=== PATIENT | male | born 1950 | race Caucasian/White ===

== ENCOUNTER 2019-09-14 21:09 | Inpatient (IN) | payer OTHER ==
[~2019-09-14] VITALS: Ht 175.3 cm; Wt 114.6 kg
[2019-09-14 21:45] LABS: BASO # 0.1 x10^3/uL (0.0-0.2); BASO % 1 % (0-3); EOS % 0 % (0-3); HEMATOCRIT 37.4 % (39.0-53.0); HEMOGLOBIN 13.3 g/dL (13.0-17.5); LYMPH % 9 % (24-48); MEAN CORPUSCULAR HEMOGLOBIN 30 pg (25-35); MEAN CORPUSCULAR HGB CONC 35 g/dL (31-37); MEAN CORPUSCULAR VOLUME 84 fL (79-100); MONO # 1.3 x10^3/uL (0.0-1.1); MONO % 12 % (0-9); NEUT # 8.5 x10^3/uL (1.8-7.7); NEUT % 78 % (31-73); PLATELET COUNT 245 x10^3/uL (140-400); RED BLOOD COUNT 4.46 x10^6/uL (4.30-5.70); RED CELL DISTRIBUTION WIDTH 13.2 % (11.5-14.5); WHITE BLOOD COUNT 10.9 x10^3/uL (4.0-11.0)
[2019-09-14 21:50] LABS: CALCIUM 7.9 mg/dL (8.5-10.1); CREATININE 0.9 mg/dL (0.7-1.3); GFR 83.9; POTASSIUM 3.9 mmol/L (3.5-5.1)
[2019-09-14 21:56] LABS: ALBUMIN 2.6 g/dL (3.4-5.0); ALBUMIN/GLOBULIN RATIO 0.6 (1.0-1.7); TOTAL BILIRUBIN 0.6 mg/dL (0.2-1.0); TOTAL PROTEIN 7.3 g/dL (6.4-8.2)
[2019-09-14 22:00] LABS: BILIRUBIN,URINE NEGATIVE (NEG); CLARITY,URINE CLEAR; NITRITE,URINE NEGATIVE (NEG); PROTEIN,URINE 100 mg/dL (NEG-TRACE)
[2019-09-14 22:06] LABS: COLOR,URINE DK YELLOW
[2019-09-14 22:09] LABS: BACTERIA,URINE 0 /HPF (0-FEW); HYALINE CASTS, URINE OCCASIONAL /HPF; RBC,URINE OCC /HPF (0-2); SQUAMOUS EPITHELIAL CELL,UR FEW /LPF; WBC,URINE 0 /HPF (0-4)
--- NOTE | 2019-09-14 22:29 | RAD ---
Exam: Chest one view INDICATION: Dyspnea TECHNIQUE: Frontal view of the chest Comparisons: None FINDINGS: The cardiomediastinal silhouette and pulmonary vessels are within normal limits. There is patchy bilateral airspace disease greater in the left lung. There is a trace amount of pneumomediastinum. No pleural effusion. IMPRESSION: Patchy bilateral airspace disease favored to be infectious in etiology. Trace pneumomediastinum. Electronically signed by: Vera Cade MD (09/14/2019 10:26 PM) [id number]
[2019-09-14 22:31] LABS: INFLUENZA A PATIENT NEGATIVE (NEGATIVE); INFLUENZA B PATIENT NEGATIVE (NEGATIVE)
--- NOTE | 2019-09-15 00:12 | PHYS DOC ---
Past Medical History Past Medical History: Hypertension Additional Past Surgical Histo: RIGHT WRIST SX Smoking Status: Former Smoker Alcohol Use: None General Adult EDM: Chief Complaint: COUGH HPI: HPI: Patient is a 69 year old male who presents with complaint of cough and shortness of breath for the last 2 days. Patient indicates the cough is been productive of mostly clear to white sputum. He states that shortness of breath is worsened with exertion. Patient is not aware of any fever. He denies any vomiting or diarrhea. [] Review of Systems: Review of Systems: Constitutional: Denies fever or chills. [] Respiratory: Complains of cough and shortness of breath. [] Cardiovascular: Denies chest pain or edema. [] Integument: Denies rash. [] Neurologic: Denies headache, focal weakness or sensory changes. [] A full 10 point review of systems has been reviewed and is otherwise negative. Heart Score: Risk Factors: Risk Factors: DM, Current or recent (<one month) smoker, HTN, HLP, family history of CAD, obesity. Risk Scores: Score 0 - 3: 2.5% MACE over next 6 weeks - Discharge Home Score 4 - 6: 20.3% MACE over next 6 weeks - Admit for Clinical Observation Score 7 - 10: 72.7% MACE over next 6 weeks - Early Invasive Strategies Physical Exam: PE: Constitutional: Well developed, well nourished, no acute distress, non-toxic appearance. [] HENT: Normocephalic, atraumatic, bilateral external ears normal, oropharynx moist, no oral exudates, nose normal. [] Eyes: PERRLA, EOMI, conjunctiva normal, no discharge. [] Neck: Normal range of motion, no tenderness, supple, no stridor. [] Cardiovascular: Mildly tachycardic rate with regular rhythm [] Lungs & Thorax: Fine rhonchi are noted bilaterally to auscultation [] Abdomen: Bowel sounds normal, soft, no tenderness. [] Skin: Warm, dry, no erythema, no rash. [] Extremities: No tenderness, no cyanosis, no clubbing, ROM intact. [] Neurologic: Alert and oriented X 3, no focal deficits noted. [] Current Patient Data: Labs: Laboratory Tests Test 09/14/19 21:31 09/14/19 21:48 6/14/20 21:58 White Blood Count 10.9 x10^3/uL (4.0-11.0) Red Blood Count 4.46 x10^6/uL (4.30-5.70) Hemoglobin 13.3 g/dL (13.0-17.5) Hematocrit 37.4 % (39.0-53.0) L Mean Corpuscular Volume 84 fL (79-100) Mean Corpuscular Hemoglobin 30 pg (25-35) Mean Corpuscular Hemoglobin Concent 35 g/dL (31-37) Red Cell Distribution Width 13.2 % (11.5-14.5) Platelet Count 245 x10^3/uL (140-400) Neutrophils (%) (Auto) 78 % (31-73) H Lymphocytes (%) (Auto) 9 % (24-48) L Monocytes (%) (Auto) 12 % (0-9) H Eosinophils (%) (Auto) 0 % (0-3) Basophils (%) (Auto) 1 % (0-3) Neutrophils # (Auto) 8.5 x10^3/uL (1.8-7.7) H Lymphocytes # (Auto) 1.0 x10^3/uL (1.0-4.8) Monocytes # (Auto) 1.3 x10^3/uL (0.0-1.1) H Eosinophils # (Auto) 0.0 x10^3/uL (0.0-0.7) Basophils # (Auto) 0.1 x10^3/uL (0.0-0.2) Sodium Level 123 mmol/L (136-145) L Potassium Level 3.9 mmol/L (3.5-5.1) Chloride Level 90 mmol/L (98-107) L Carbon Dioxide Level 31 mmol/L (21-32) Anion Gap 2 (6-14) L Blood Urea Nitrogen 14 mg/dL (8-26) Creatinine 0.9 mg/dL (0.7-1.3) Estimated GFR (Cockcroft-Gault) 83.9 BUN/Creatinine Ratio 16 (6-20) Glucose Level 125 mg/dL (70-99) H Lactic Acid Level 1.1 mmol/L (0.4-2.0) Calcium Level 7.9 mg/dL (8.5-10.1) L Total Bilirubin 0.6 mg/dL (0.2-1.0) Aspartate Amino Transferase (AST) 67 U/L (15-37) H Alanine Aminotransferase (ALT) 83 U/L (16-63) H Alkaline Phosphatase 88 U/L (46-116) Troponin I Quantitative < 0.017 ng/mL (0.000-0.055) YS-Cdh-R-Type Natriuretic Peptide 1090 pg/mL (0-124) H Total Protein 7.3 g/dL (6.4-8.2) Albumin 2.6 g/dL (3.4-5.0) L Albumin/Globulin Ratio 0.6 (1.0-1.7) L Urine Collection Type Unknown Urine Color Dk yellow Urine Clarity Clear Urine pH 6.0 (<5.0-8.0) Urine Specific Gilbert 1.020 (1.000-1.030) Urine Protein 100 mg/dL (NEG-TRACE) Urine Glucose (UA) Negative mg/dL (NEG) Urine Ketones (Stick) Trace mg/dL (NEG) Urine Blood Trace (NEG) Urine Nitrite Negative (NEG) Urine Bilirubin Negative (NEG) Urine Urobilinogen Dipstick 4.0 mg/dL (0.2 mg/dL) Urine Leukocyte Esterase Negative (NEG) Urine RBC Occ /HPF (0-2) Urine WBC 0 /HPF (0-4) Urine Squamous Epithelial Cells Few /LPF Urine Bacteria 0 /HPF (0-FEW) Urine Hyaline Casts Occasional /HPF Urine Mucus Marked /LPF Influenza Type A Antigen Negative (NEGATIVE) Influenza Type B Antigen Negative (NEGATIVE) Laboratory Tests 09/14/19 21:31 Laboratory Tests 09/14/19 21:31 Vital Signs: Vital Signs Date Time Temp Pulse Resp B/P (MAP) Pulse Ox O2 Delivery O2 Flow Rate FiO2 09/14/19 21:19 98.0 101 30 145/75 (98) 94 Nasal Cannula 2.0 98.0 EKG: EKG: [] Radiology/Procedures: Radiology/Procedures: [] Impression: PROCEDURE: PORTABLE CHEST 1V Exam: Chest one view INDICATION: Dyspnea TECHNIQUE: Frontal view of the chest Comparisons: None FINDINGS: The cardiomediastinal silhouette and pulmonary vessels are within normal limits. There is patchy bilateral airspace disease greater in the left lung. There is a trace amount of pneumomediastinum. No pleural effusion. IMPRESSION: Patchy bilateral airspace disease favored to be infectious in etiology. Trace pneumomediastinum. Electronically signed by: Vera Cade MD (09/14/2019 10:26 PM) [id number] PROCEDURE: CT ANGIOGRAPHY CHEST EXAM: CT ANGIOGRAPHY OF THE CHEST WITH AND WITHOUT CONTRAST. HISTORY: Dyspnea, pneumomediastinum, infiltrates. TECHNIQUE: Computed tomographic angiography of the chest was performed before and after the intravenous administration of iodinated contrast. 3-D maximum intensity projections were also performed. One or more of the following individualized dose reduction techniques were utilized for this examination: 1. Automated exposure control. 2. Adjustment of the mA and/or kV according to patient size. 3. Use of iterative reconstruction technique. COMPARISON: None. FINDINGS: Images of the upper abdomen reveal a small hiatal hernia. Bone windows reveal no suspicious lesions. No pulmonary emboli are identified. There is no aortic dissection or aneurysm. There are peripheral groundglass opacities on the left greater than right. There is no clear septal line thickening. The There is mild diffuse bronchial wall thickening. Scattered prominent mediastinal and hilar lymph nodes are likely reactive in this setting. One left hilar node on image 76 measures 2.0 x 1.5 cm. There is a trace left pleural effusion. There is no pericardial effusion. The heart is not enlarged. IMPRESSION: 1. No pulmonary embolism. 2. Peripheral bilateral groundglass infiltrates are nonspecific. Considerations include atypical pneumonia in the acute setting. If more chronic, cryptogenic organizing pneumonia, chronic eosinophilic pneumonia, or alveolar sarcoidosis. Prominent mediastinal lymph nodes are likely reactive in this setting. 3. Small hiatal hernia. Electronically signed by: Franklyn Mar MD (09/15/2019 1:40 AM) [facility] DICTATED and SIGNED BY: SHARRI MAR MD DATE: 09/15/19 0140 Course & Med Decision Making: Course & Med Decision Making Pertinent Labs and Imaging studies reviewed. (See chart for details) [] Ibrahima Disclaimer: Ibrahima Disclaimer: This electronic medical record was generated, in whole or in part, using a voice recognition dictation system. Departure Departure Impression: Primary Impression: Pneumonia Qualified Codes: J18.9 - Pneumonia, unspecified organism Additional Impressions: Hypoxemia Person under investigation for COVID-19 Disposition: ADMITTED INPATIENT Admitting Physician: HIMS Condition: IMPROVED Referrals: NO PCP (PCP) Justicifation of Admission Dx: Justifications for Admission: Justification of Admission Dx: Comment: (Pneumonia; suspected COVID) MAURICIO VELAZQUEZ Jr. DO Sep 15, 2019 00:12
[2019-09-15] MEDS ORDERED: CONTRAST GIVEN. MC PRN (00:30)
[2019-09-15] MEDS ORDERED: IOHEXOL 350 MG/ML 100 ML VIAL. IV ONE (00:30)
--- NOTE | 2019-09-15 01:42 | RAD ---
EXAM: CT ANGIOGRAPHY OF THE CHEST WITH AND WITHOUT CONTRAST. HISTORY: Dyspnea, pneumomediastinum, infiltrates. TECHNIQUE: Computed tomographic angiography of the chest was performed before and after the intravenous administration of iodinated contrast. 3-D maximum intensity projections were also performed. One or more of the following individualized dose reduction techniques were utilized for this examination: 1. Automated exposure control. 2. Adjustment of the mA and/or kV according to patient size. 3. Use of iterative reconstruction technique. COMPARISON: None. FINDINGS: Images of the upper abdomen reveal a small hiatal hernia. Bone windows reveal no suspicious lesions. No pulmonary emboli are identified. There is no aortic dissection or aneurysm. There are peripheral groundglass opacities on the left greater than right. There is no clear septal line thickening. The There is mild diffuse bronchial wall thickening. Scattered prominent mediastinal and hilar lymph nodes are likely reactive in this setting. One left hilar node on image 76 measures 2.0 x 1.5 cm. There is a trace left pleural effusion. There is no pericardial effusion. The heart is not enlarged. IMPRESSION: 1. No pulmonary embolism. 2. Peripheral bilateral groundglass infiltrates are nonspecific. Considerations include atypical pneumonia in the acute setting. If more chronic, cryptogenic organizing pneumonia, chronic eosinophilic pneumonia, or alveolar sarcoidosis. Prominent mediastinal lymph nodes are likely reactive in this setting. 3. Small hiatal hernia. Electronically signed by: Franklyn Parsons MD (09/15/2019 1:40 AM) [facility]
[2019-09-15] MEDS ORDERED: MORPHINE SULFATE 4 MG/ML VIAL. IV PRN (02:00)
[2019-09-15] MEDS ORDERED: ACETAMINOPHEN 325 MG TABLET. PO PRN (02:00)
[2019-09-15] MEDS ORDERED: ONDANSETRON PF 4 MG/2 ML VIAL. IV PRN (02:00)
[2019-09-15] MEDS ORDERED: cefTRIAXone IV Push 1 GM VIAL. IVP ONE (02:30)
[2019-09-15] MEDS ORDERED: AZITHROMYCIN 250 MG TABLET. PO ONE (02:30)
[2019-09-15 03:15] VITALS: BP 120/68
[2019-09-15] MEDS ORDERED: TAMS0.4C97 PO (04:34)
[2019-09-15] MEDS ORDERED: CARV25TA2 PO (04:34)
[2019-09-15] MEDS ORDERED: LISI10TA2 PO (04:34)
--- NOTE | 2019-09-15 06:07 | NUR ---
Patient admitted to room 111 from ER at 0310. Patient walked from ER cart to ICU bed. Some SOA on exertions. On 4LNC with O2 sat at 91%. Other VSS. See assessments. No c/o pain or discomfort at this time. Call light is within reach. Will continue to monitor.
[2019-09-15 07:30] VITALS: BP 138/80
[2019-09-15 08:46] LABS: FREE T4 1.41 ng/dL (0.76-1.46); THYROID STIM HORMONE (TSH) 0.92 uIU/mL (0.358-3.74)
[2019-09-15] MEDS ORDERED: LISINOPRIL 10 MG TABLET PO SCH (09:00)
[2019-09-15] MEDS ORDERED: TAMSULOSIN 0.4 MG CAP.ER.24H. PO SCH (09:00)
[2019-09-15] MEDS: CARVEDILOL 6.25 MG TABLET. PO SCH ×2 (09:15→17:12)
[2019-09-15 09:25] LABS: CREATININE 0.9 mg/dL (0.7-1.3); GFR 83.9; POTASSIUM 3.6 mmol/L (3.5-5.1)
--- NOTE | 2019-09-15 09:32 | EKG ---
[facility] [address] [place] [address] Test Date: 2019-09-14 Test Time: 21:41:06 Pat Name: NEEMA ECHEVARRIA Department: Room: 111 1 Gender: M Deicer Tester: : 1950 Requested By: MAURICIO VELAZQUEZ Order Number: [id number] Reading MD: Wisam Hutton MD Measurements Intervals [place] Rate: 103 P: ME: QRS: -7 QRSD: 94 T: 34 QT: 342 QTc: 450 Interpretive Statements PROBABLE ATRIAL FIBRILLATION CONSIDER REPEAT EKG Electronically Signed On 09-15-2019 12:47:01 CDT by Wisam Hutton MD
[2019-09-15] MEDS ORDERED: cefTRIAXone IV Push 1 GM VIAL. IVP SCH (10:00)
--- NOTE | 2019-09-15 10:11 | NUR ---
SS following for discharge planning. SS reviewed pt chart and discussed with pt RN. [facility] RN[facility] [place] Pt is currently requiring oxygen. Pt is self pay and on IV Rocephin. Pt COVID19 test pending. SS will continue to follow for discharge planning.
--- NOTE | 2019-09-15 11:24 | PDOC1 ---
History and Physical Date of Admission Date of Admission 09/15/2019 Identification/Chief Complaint Chief Complaint Mr. Clark is a 69-year-old gentleman with past medical history of essential hypertension who was in his usual state of health until the night prior to his admission. 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 Patient denies any sick contacts no cough or sputum production was reported prior but ever since his symptoms started he has been bringing up clear sputum. The patient denies any malaise no fever no chills were reported no pleurisy, he has a very longstanding history of smoking and earlier in his life he used to smoke at least 2 packs a day. The patient denies inhaler use, he denies using oxygen at home and he has never been intubated rather. The patient denies history of asthma or reactive airway disease. No travels outside this area. Patient denies weight loss, no other symptoms reported. Due to the progressive nature of his symptoms he decided to come to the emergency department for evaluation, CAT scan of his chest was performed with findings of peripheral bilateral groundglass infiltrates nonspecific which could be atypical pneumonia in the acute setting or cryptogenic organizing organizing pneumonia and if it was a chronic entity. Patient has some mediastinal lymph nodes most likely reactive. Patient was also found to be hypoxemic as reported by the emergency department physician reason why we were asked to admit the patient for further evaluation treatment. At the time of my evaluation the patient is in moderate respiratory distress he is utilizing some accessory muscl es intercostal muscles and has audible expiratory wheezing as well. He is able to finish sentences but with difficulty. Plan of care has been explained detail and all of his concerns were addressed to the best of my abilities Source Source: Chart review, Patient Past Medical History Cardiovascular: HTN Pulmonary: COPD Past Surgical History Past Surgical History: No pertinent history Family History Family History: Other (Reviewed and found negative noncontributory to the prese nt) Social History Smoke: # pack years (50) ALCOHOL: none Drugs: None Current Problem List Problem List Problems Medical Problems: (1) Hypoxemia Status: Acute (2) Person under investigation for COVID-19 Status: Acute (3) Pneumonia Status: Acute Current Medications Current Medications Current Medications Medications (Trade) Dose Ordered Sig/Christy Start Time Stop Time Status Last Admin Dose Admin Acetaminophen (Tylenol) 650 mg PRN Q4HRS PRN 09/15/19 02:00 09/16/19 01:59 Azithromycin (Zithromax) 250 mg DAILY 09/19/19 09:00 Carvedilol (Coreg) 6.25 mg BIDWMEALS 09/15/19 09:15 09/15/19 09:15 6.25 MG Ceftriaxone Sodium (Rocephin) 1 gm Q24H 09/15/19 10:00 Info (CONTRAST GIVEN -- Rx MONITORING) 1 each PRN DAILY PRN 09/15/19 00:30 09/17/19 00:29 Iohexol (Omnipaque 350 Mg/ml) 100 ml 1X ONCE 09/15/19 00:30 09/15/19 00:31 DC 09/15/19 00:48 100 ML Lisinopril (Prinivil) 10 mg HS 09/15/19 21:00 Morphine Sulfate (Morphine Sulfate) 4 mg PRN Q2HR PRN 09/15/19 02:00 09/16/19 01:59 Ondansetron HCl (Zofran) 4 mg PRN Q8HRS PRN 09/15/19 02:00 09/16/19 01:59 Tamsulosin HCl (Flomax) 0.4 mg HS 09/15/19 21:00 Allergies Allergies Allergies Coded Allergies Type Severity Reaction Last Updated Verified No Known Drug Allergies 09/15/19 No ROS Review of System CONSTITUTIONAL: No fever or chills EYES: No recent changes SKIN: No rash or itching CARDIOVASCULAR: No chest pain, syncope, palpitations, or edema RESPIRATORY: No SOB or cough GASTROINTESTINAL: No nausea, vomiting or abdominal pain NEUROLOGICAL: No headaches or weakness ENDOCRINE: No cold or heat intolerance GENITOURINARY: No urgency or frequency of urination MUSCULOSKELETAL: No back pain or joint pain LYMPHATICS: No enlarged lymph nodes PSYCHIATRIC: No anxiety or depression Physical Exam Physical Exam GEN.: No apparent distress. Alert and oriented. HEENT: Head is normocephalic, atraumatic NECK: Supple. LUNGS: Clear to auscultation. HEART: RRR, S1, S2 present. Peripheral pulses intact ABDOMEN: Soft, nontender. Positive bowel sounds. EXTREMITIES: Without any cyanosis. NEUROLOGIC: Normal speech, normal tone PSYCHIATRIC: Normal affect, normal mood. SKIN: No ulcerations Vitals Vitals Vital Signs Date Time Temp Pulse Resp B/P (MAP) Pulse Ox O2 Delivery O2 Flow Rate FiO2 09/15/19 09:15 95 09/15/19 08:00 Nasal Cannula 5.0 09/15/19 07:30 98.9 20 138/80 (99) 92 98.9 Labs Labs Laboratory Tests Test 09/14/19 21:31 09/14/19 21:48 09/14/19 21:58 09/15/19 07:55 White Blood Count 10.9 x10^3/uL (4.0-11.0) Red Blood Count 4.46 x10^6/uL (4.30-5.70) Hemoglobin 13.3 g/dL (13.0-17.5) Hematocrit 37.4 % (39.0-53.0) Mean Corpuscular Volume 84 fL (79-100) Mean Corpuscular Hemoglobin 30 pg (25-35) Mean Corpuscular Hemoglobin Concent 35 g/dL (31-37) Red Cell Distribution Width 13.2 % (11.5-14.5) Platelet Count 245 x10^3/uL (140-400) Neutrophils (%) (Auto) 78 % (31-73) Lymphocytes (%) (Auto) 9 % (24-48) Monocytes (%) (Auto) 12 % (0-9) Eosinophils (%) (Auto) 0 % (0-3) Basophils (%) (Auto) 1 % (0-3) Neutrophils # (Auto) 8.5 x10^3/uL (1.8-7.7) Lymphocytes # (Auto) 1.0 x10^3/uL (1.0-4.8) Monocytes # (Auto) 1.3 x10^3/uL (0.0-1.1) Eosinophils # (Auto) 0.0 x10^3/uL (0.0-0.7) Basophils # (Auto) 0.1 x10^3/uL (0.0-0.2) Sodium Level 123 mmol/L (136-145) 130 mmol/L (136-145) Potassium Level 3.9 mmol/L (3.5-5.1) 3.6 mmol/L (3.5-5.1) Chloride Level 90 mmol/L (98-107) 94 mmol/L (98-107) Carbon Dioxide Level 31 mmol/L (21-32) 29 mmol/L (21-32) Anion Gap 2 (6-14) 7 (6-14) Blood Urea Nitrogen 14 mg/dL (8-26) 13 mg/dL (8-26) Creatinine 0.9 mg/dL (0.7-1.3) 0.9 mg/dL (0.7-1.3) Estimated GFR (Cockcroft-Gault) 83.9 83.9 BUN/Creatinine Ratio 16 (6-20) Glucose Level 125 mg/dL (70-99) 119 mg/dL (70-99) Lactic Acid Level 1.1 mmol/L (0.4-2.0) Calcium Level 7.9 mg/dL (8.5-10.1) 8.0 mg/dL (8.5-10.1) Total Bilirubin 0.6 mg/dL (0.2-1.0) Aspartate Amino Transf (AST/SGOT) 67 U/L (15-37) Alanine Aminotransferase (ALT/SGPT) 83 U/L (16-63) Alkaline Phosphatase 88 U/L (46-116) Troponin I Quantitative < 0.017 ng/mL (0.000-0.055) EE-Jsw-D-Type Natriuretic Peptide 1090 pg/mL (0-124) Total Protein 7.3 g/dL (6.4-8.2) Albumin 2.6 g/dL (3.4-5.0) Albumin/Globulin Ratio 0.6 (1.0-1.7) Urine Collection Type Unknown Urine Color Dk yellow Urine Clarity Clear Urine pH 6.0 (<5.0-8.0) Urine Specific Sidney 1.020 (1.000-1.030) Urine Protein 100 mg/dL (NEG-TRACE) Urine Glucose (UA) Negative mg/dL (NEG) Urine Ketones (Stick) Trace mg/dL (NEG) Urine Blood Trace (NEG) Urine Nitrite Negative (NEG) Urine Bilirubin Negative (NEG) Urine Urobilinogen Dipstick 4.0 mg/dL (0.2 mg/dL) Urine Leukocyte Esterase Negative (NEG) Urine RBC Occ /HPF (0-2) Urine WBC 0 /HPF (0-4) Urine Squamous Epithelial Cells Few /LPF Urine Bacteria 0 /HPF (0-FEW) Urine Hyaline Casts Occasional /HPF Urine Mucus Marked /LPF Influenza Type A Antigen Negative (NEGATIVE) Influenza Type B Antigen Negative (NEGATIVE) Thyroid Stimulating Hormone (TSH) 0.920 uIU/mL (0.358-3.74) Free Thyroxine 1.41 ng/dL (0.76-1.46) Laboratory Tests Test 09/14/19 21:31 09/14/19 21:48 09/14/19 21:58 09/15/19 07:55 White Blood Count 10.9 x10^3/uL (4.0-11.0) Red Blood Count 4.46 x10^6/uL (4.30-5.70) Hemoglobin 13.3 g/dL (13.0-17.5) Hematocrit 37.4 % (39.0-53.0) Mean Corpuscular Volume 84 fL (79-100) Mean Corpuscular Hemoglobin 30 pg (25-35) Mean Corpuscular Hemoglobin Concent 35 g/dL (31-37) Red Cell Distribution Width 13.2 % (11.5-14.5) Platelet Count 245 x10^3/uL (140-400) Neutrophils (%) (Auto) 78 % (31-73) Lymphocytes (%) (Auto) 9 % (24-48) Monocytes (%) (Auto) 12 % (0-9) Eosinophils (%) (Auto) 0 % (0-3) Basophils (%) (Auto) 1 % (0-3) Neutrophils # (Auto) 8.5 x10^3/uL (1.8-7.7) Lymphocytes # (Auto) 1.0 x10^3/uL (1.0-4.8) Monocytes # (Auto) 1.3 x10^3/uL (0.0-1.1) Eosinophils # (Auto) 0.0 x10^3/uL (0.0-0.7) Basophils # (Auto) 0.1 x10^3/uL (0.0-0.2) Sodium Level 123 mmol/L (136-145) 130 mmol/L (136-145) Potassium Level 3.9 mmol/L (3.5-5.1) 3.6 mmol/L (3.5-5.1) Chloride Level 90 mmol/L (98-107) 94 mmol/L (98-107) Carbon Dioxide Level 31 mmol/L (21-32) 29 mmol/L (21-32) Anion Gap 2 (6-14) 7 (6-14) Blood Urea Nitrogen 14 mg/dL (8-26) 13 mg/dL (8-26) Creatinine 0.9 mg/dL (0.7-1.3) 0.9 mg/dL (0.7-1.3) Estimated GFR (Cockcroft-Gault) 83.9 83.9 BUN/Creatinine Ratio 16 (6-20) Glucose Level 125 mg/dL (70-99) 119 mg/dL (70-99) Lactic Acid Level 1.1 mmol/L (0.4-2.0) Calcium Level 7.9 mg/dL (8.5-10.1) 8.0 mg/dL (8.5-10.1) Total Bilirubin 0.6 mg/dL (0.2-1.0) Aspartate Amino Transf (AST/SGOT) 67 U/L (15-37) Alanine Aminotransferase (ALT/SGPT) 83 U/L (16-63) Alkaline Phosphatase 88 U/L (46-116) Troponin I Quantitative < 0.017 ng/mL (0.000-0.055) ME-Lku-T-Type Natriuretic Peptide 1090 pg/mL (0-124) Total Protein 7.3 g/dL (6.4-8.2) Albumin 2.6 g/dL (3.4-5.0) Albumin/Globulin Ratio 0.6 (1.0-1.7) Urine Collection Type Unknown Urine Color Dk yellow Urine Clarity Clear Urine pH 6.0 (<5.0-8.0) Urine Specific Sidney 1.020 (1.000-1.030) Urine Protein 100 mg/dL (NEG-TRACE) Urine Glucose (UA) Negative mg/dL (NEG) Urine Ketones (Stick) Trace mg/dL (NEG) Urine Blood Trace (NEG) Urine Nitrite Negative (NEG) Urine Bilirubin Negative (NEG) Urine Urobilinogen Dipstick 4.0 mg/dL (0.2 mg/dL) Urine Leukocyte Esterase Negative (NEG) Urine RBC Occ /HPF (0-2) Urine WBC 0 /HPF (0-4) Urine Squamous Epithelial Cells Few /LPF Urine Bacteria 0 /HPF (0-FEW) Urine Hyaline Casts Occasional /HPF Urine Mucus Marked /LPF Influenza Type A Antigen Negative (NEGATIVE) Influenza Type B Antigen Negative (NEGATIVE) Thyroid Stimulating Hormone (TSH) 0.920 uIU/mL (0.358-3.74) Free Thyroxine 1.41 ng/dL (0.76-1.46) VTE Prophylaxis Ordered VTE Prophylaxis Devices: No VTE Pharmacological Prophylaxi: Yes Assessment/Plan Assessment/Plan Acute COPD exacerbation Atypical pneumonia Hyponatremia secondary to low effective circulatory volume Contraction alkalosis Transaminitis History of hepatitis C History of TB treated as reported by the patient, 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 will check thyroid tests, will check urine lytes, will check b12 levels hyponatremia is bad pronostic factor in hepatic patients, will continue to follow if patient tests negative will repeat testing since the patient has been living in a half way house further recommendations based on clinical course. DVT prophylaxis: Lovenox Justicifation of Admission Dx: Justifications for Admission: Justification of Admission Dx: Yes Respiratory Failure: Severe Resp Distress Aspiration Pneumonia: Chronic Lung Disease ERIS HINTON MD Sep 15, 2019 11:24
[2019-09-15 11:30] VITALS: BP 114/59
[2019-09-15] MEDS ORDERED: ENOXAPARIN 40 MG/0.4 ML SYRINGE. SQ SCH (12:00)
[2019-09-15 12:52] LABS: CALCIUM 7.8 mg/dL (8.5-10.1); CREATININE 0.8 mg/dL (0.7-1.3); GFR 96.1; POTASSIUM 3.9 mmol/L (3.5-5.1)
[2019-09-15 15:30] VITALS: BP 109/83
[2019-09-15 19:00] VITALS: BP 131/82
[2019-09-15] MEDS: LISINOPRIL 10 MG TABLET PO SCH (21:06)
[2019-09-15] MEDS: LACTOBACILLUS RHAMNOSUS GG 1 CAPSULE. PO SCH (21:06)
[2019-09-15] MEDS: cefTRIAXone IV Push 1 GM VIAL. IVP SCH (21:07)
[2019-09-15] MEDS: TAMSULOSIN 0.4 MG CAP.ER.24H. PO SCH (21:07)
[2019-09-15 22:46] VITALS: BP 162/87
[2019-09-16] VITALS (8 sets, daily range): BP systolic 113–183; BP diastolic 64–98
[2019-09-16 04:18] LABS: BASO % 0 % (0-3); EOS % 0 % (0-3); HEMATOCRIT 34.5 % (39.0-53.0); LYMPH # 0.9 x10^3/uL (1.0-4.8); LYMPH % 12 % (24-48); MEAN CORPUSCULAR HEMOGLOBIN 29 pg (25-35); MEAN CORPUSCULAR HGB CONC 35 g/dL (31-37); MEAN CORPUSCULAR VOLUME 85 fL (79-100); MONO % 12 % (0-9); NEUT # 6.1 x10^3/uL (1.8-7.7); NEUT % 76 % (31-73); PLATELET COUNT 249 x10^3/uL (140-400); RED BLOOD COUNT 4.07 x10^6/uL (4.30-5.70); RED CELL DISTRIBUTION WIDTH 13.4 % (11.5-14.5); WHITE BLOOD COUNT 8.1 x10^3/uL (4.0-11.0)
[2019-09-16 04:33] LABS: CREATININE 0.8 mg/dL (0.7-1.3); GFR 96.1; POTASSIUM 3.4 mmol/L (3.5-5.1)
[2019-09-16] MEDS: LACTOBACILLUS RHAMNOSUS GG 1 CAPSULE. PO SCH ×2 (08:59→21:55)
[2019-09-16] MEDS: CARVEDILOL 6.25 MG TABLET. PO SCH (09:01)
[2019-09-16 09:29] LABS: CHOLESTEROL/HDL RATIO 5.6
--- NOTE | 2019-09-16 09:50 | PDOC ---
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 his wallet, no fever no weight loss no lymphadenopathy noted Plan Consult pulmonology Consult cardiology Continue current management Supportive measures Monitor oximetry closely Isolation precaution Further recommendations based on the clinical course History of Present Illness History of Present Illness No acute events reported overnight, case discussed with nursing staff patient in no acute distress no complaints during my visit, patient asymptomatic, he was quite concerned given the diagnosis of COVID-19, reassurance has been provided, plan of care explained in detail Vitals Vitals Vital Signs Date Time Temp Pulse Resp B/P (MAP) Pulse Ox O2 Delivery O2 Flow Rate FiO2 09/16/19 09:01 89 115/76 09/16/19 06:00 99.2 20 94 Nasal Cannula 6.0 99.2 Physical Exam Physical Exam GEN.: No apparent distress. Alert and oriented. HEENT: Head is normocephalic, atraumatic NECK: Supple. LUNGS: Clear to auscultation. HEART: RRR, S1, S2 present. Peripheral pulses intact ABDOMEN: Soft, nontender. Positive bowel sounds. EXTREMITIES: Without any cyanosis. NEUROLOGIC: Normal speech, normal tone PSYCHIATRIC: Normal affect, normal mood. SKIN: No ulcerations Labs LABS Laboratory Tests Test 09/15/19 12:25 09/16/19 03:30 Sodium Level 130 mmol/L (136-145) 129 mmol/L (136-145) Potassium Level 3.9 mmol/L (3.5-5.1) 3.4 mmol/L (3.5-5.1) Chloride Level 94 mmol/L (98-107) 94 mmol/L (98-107) Carbon Dioxide Level 31 mmol/L (21-32) 29 mmol/L (21-32) Anion Gap 5 (6-14) 6 (6-14) Blood Urea Nitrogen 13 mg/dL (8-26) 11 mg/dL (8-26) Creatinine 0.8 mg/dL (0.7-1.3) 0.8 mg/dL (0.7-1.3) Estimated GFR (Cockcroft-Gault) 96.1 96.1 Glucose Level 148 mg/dL (70-99) 123 mg/dL (70-99) Calcium Level 7.8 mg/dL (8.5-10.1) 8.0 mg/dL (8.5-10.1) White Blood Count 8.1 x10^3/uL (4.0-11.0) Red Blood Count 4.07 x10^6/uL (4.30-5.70) Hemoglobin 12.0 g/dL (13.0-17.5) Hematocrit 34.5 % (39.0-53.0) Mean Corpuscular Volume 85 fL (79-100) Mean Corpuscular Hemoglobin 29 pg (25-35) Mean Corpuscular Hemoglobin Concent 35 g/dL (31-37) Red Cell Distribution Width 13.4 % (11.5-14.5) Platelet Count 249 x10^3/uL (140-400) Neutrophils (%) (Auto) 76 % (31-73) Lymphocytes (%) (Auto) 12 % (24-48) Monocytes (%) (Auto) 12 % (0-9) Eosinophils (%) (Auto) 0 % (0-3) Basophils (%) (Auto) 0 % (0-3) Neutrophils # (Auto) 6.1 x10^3/uL (1.8-7.7) Lymphocytes # (Auto) 0.9 x10^3/uL (1.0-4.8) Monocytes # (Auto) 1.0 x10^3/uL (0.0-1.1) Eosinophils # (Auto) 0.0 x10^3/uL (0.0-0.7) Basophils # (Auto) 0.0 x10^3/uL (0.0-0.2) Triglycerides Level 54 mg/dL (0-150) Cholesterol Level 100 mg/dL (0-200) LDL Cholesterol, Calculated 71 mg/dL (0-100) VLDL Cholesterol, Calculated 11 mg/dL (0-40) Non-HDL Cholesterol Calculated 82 mg/dL (0-129) HDL Cholesterol 18 mg/dL (40-60) Cholesterol/HDL Ratio 5.6 Review of Systems Review of Systems Pertinent as per HPI otherwise 14 point review of system is negative Assessment and Plan Assessmemt and Plan Problems Medical Problems: (1) Hypoxemia Status: Acute (2) Person under investigation for COVID-19 Status: Acute (3) Pneumonia Status: Acute Comment Review of Relevant I have reviewed the following items syed (where applicable) has been applied. Labs Laboratory Tests Test 09/14/19 21:31 09/14/19 21:48 09/14/19 21:58 09/15/19 07:55 White Blood Count 10.9 x10^3/uL (4.0-11.0) Red Blood Count 4.46 x10^6/uL (4.30-5.70) Hemoglobin 13.3 g/dL (13.0-17.5) Hematocrit 37.4 % (39.0-53.0) Mean Corpuscular Volume 84 fL (79-100) Mean Corpuscular Hemoglobin 30 pg (25-35) Mean Corpuscular Hemoglobin Concent 35 g/dL (31-37) Red Cell Distribution Width 13.2 % (11.5-14.5) Platelet Count 245 x10^3/uL (140-400) Neutrophils (%) (Auto) 78 % (31-73) Lymphocytes (%) (Auto) 9 % (24-48) Monocytes (%) (Auto) 12 % (0-9) Eosinophils (%) (Auto) 0 % (0-3) Basophils (%) (Auto) 1 % (0-3) Neutrophils # (Auto) 8.5 x10^3/uL (1.8-7.7) Lymphocytes # (Auto) 1.0 x10^3/uL (1.0-4.8) Monocytes # (Auto) 1.3 x10^3/uL (0.0-1.1) Eosinophils # (Auto) 0.0 x10^3/uL (0.0-0.7) Basophils # (Auto) 0.1 x10^3/uL (0.0-0.2) Sodium Level 123 mmol/L (136-145) 130 mmol/L (136-145) Potassium Level 3.9 mmol/L (3.5-5.1) 3.6 mmol/L (3.5-5.1) Chloride Level 90 mmol/L (98-107) 94 mmol/L (98-107) Carbon Dioxide Level 31 mmol/L (21-32) 29 mmol/L (21-32) Anion Gap 2 (6-14) 7 (6-14) Blood Urea Nitrogen 14 mg/dL (8-26) 13 mg/dL (8-26) Creatinine 0.9 mg/dL (0.7-1.3) 0.9 mg/dL (0.7-1.3) Estimated GFR (Cockcroft-Gault) 83.9 83.9 BUN/Creatinine Ratio 16 (6-20) Glucose Level 125 mg/dL (70-99) 119 mg/dL (70-99) Lactic Acid Level 1.1 mmol/L (0.4-2.0) Calcium Level 7.9 mg/dL (8.5-10.1) 8.0 mg/dL (8.5-10.1) Total Bilirubin 0.6 mg/dL (0.2-1.0) Aspartate Amino Transf (AST/SGOT) 67 U/L (15-37) Alanine Aminotransferase (ALT/SGPT) 83 U/L (16-63) Alkaline Phosphatase 88 U/L (46-116) Troponin I Quantitative < 0.017 ng/mL (0.000-0.055) CH-Hgh-J-Type Natriuretic Peptide 1090 pg/mL (0-124) Total Protein 7.3 g/dL (6.4-8.2) Albumin 2.6 g/dL (3.4-5.0) Albumin/Globulin Ratio 0.6 (1.0-1.7) Urine Collection Type Unknown Urine Color Dk yellow Urine Clarity Clear Urine pH 6.0 (<5.0-8.0) Urine Specific [place] 1.020 (1.000-1.030) Urine Protein 100 mg/dL (NEG-TRACE) Urine Glucose (UA) Negative mg/dL (NEG) Urine Ketones (Stick) Trace mg/dL (NEG) Urine Blood Trace (NEG) Urine Nitrite Negative (NEG) Urine Bilirubin Negative (NEG) Urine Urobilinogen Dipstick 4.0 mg/dL (0.2 mg/dL) Urine Leukocyte Esterase Negative (NEG) Urine RBC Occ /HPF (0-2) Urine WBC 0 /HPF (0-4) Urine Squamous Epithelial Cells Few /LPF Urine Bacteria 0 /HPF (0-FEW) Urine Hyaline Casts Occasional /HPF Urine Mucus Marked /LPF Coronavirus (COVID-19)(PCR) Detected (NOT DETECT.) Influenza Type A Antigen Negative (NEGATIVE) Influenza Type B Antigen Negative (NEGATIVE) Gamma Glutamyl Transpeptidase 24 U/L (10-85) Thyroid Stimulating Hormone (TSH) 0.920 uIU/mL (0.358-3.74) Free Thyroxine 1.41 ng/dL (0.76-1.46) Test 09/15/19 12:25 09/16/19 03:30 Sodium Level 130 mmol/L (136-145) 129 mmol/L (136-145) Potassium Level 3.9 mmol/L (3.5-5.1) 3.4 mmol/L (3.5-5.1) Chloride Level 94 mmol/L (98-107) 94 mmol/L (98-107) Carbon Dioxide Level 31 mmol/L (21-32) 29 mmol/L (21-32) Anion Gap 5 (6-14) 6 (6-14) Blood Urea Nitrogen 13 mg/dL (8-26) 11 mg/dL (8-26) Creatinine 0.8 mg/dL (0.7-1.3) 0.8 mg/dL (0.7-1.3) Estimated GFR (Cockcroft-Gault) 96.1 96.1 Glucose Level 148 mg/dL (70-99) 123 mg/dL (70-99) Calcium Level 7.8 mg/dL (8.5-10.1) 8.0 mg/dL (8.5-10.1) White Blood Count 8.1 x10^3/uL (4.0-11.0) Red Blood Count 4.07 x10^6/uL (4.30-5.70) Hemoglobin 12.0 g/dL (13.0-17.5) Hematocrit 34.5 % (39.0-53.0) Mean Corpuscular Volume 85 fL (79-100) Mean Corpuscular Hemoglobin 29 pg (25-35) Mean Corpuscular Hemoglobin Concent 35 g/dL (31-37) Red Cell Distribution Width 13.4 % (11.5-14.5) Platelet Count 249 x10^3/uL (140-400) Neutrophils (%) (Auto) 76 % (31-73) Lymphocytes (%) (Auto) 12 % (24-48) Monocytes (%) (Auto) 12 % (0-9) Eosinophils (%) (Auto) 0 % (0-3) Basophils (%) (Auto) 0 % (0-3) Neutrophils # (Auto) 6.1 x10^3/uL (1.8-7.7) Lymphocytes # (Auto) 0.9 x10^3/uL (1.0-4.8) Monocytes # (Auto) 1.0 x10^3/uL (0.0-1.1) Eosinophils # (Auto) 0.0 x10^3/uL (0.0-0.7) Basophils # (Auto) 0.0 x10^3/uL (0.0-0.2) Triglycerides Level 54 mg/dL (0-150) Cholesterol Level 100 mg/dL (0-200) LDL Cholesterol, Calculated 71 mg/dL (0-100) VLDL Cholesterol, Calculated 11 mg/dL (0-40) Non-HDL Cholesterol Calculated 82 mg/dL (0-129) HDL Cholesterol 18 mg/dL (40-60) Cholesterol/HDL Ratio 5.6 Laboratory Tests Test 09/15/19 12:25 09/16/19 03:30 Sodium Level 130 mmol/L (136-145) 129 mmol/L (136-145) Potassium Level 3.9 mmol/L (3.5-5.1) 3.4 mmol/L (3.5-5.1) Chloride Level 94 mmol/L (98-107) 94 mmol/L (98-107) Carbon Dioxide Level 31 mmol/L (21-32) 29 mmol/L (21-32) Anion Gap 5 (6-14) 6 (6-14) Blood Urea Nitrogen 13 mg/dL (8-26) 11 mg/dL (8-26) Creatinine 0.8 mg/dL (0.7-1.3) 0.8 mg/dL (0.7-1.3) Estimated GFR (Cockcroft-Gault) 96.1 96.1 Glucose Level 148 mg/dL (70-99) 123 mg/dL (70-99) Calcium Level 7.8 mg/dL (8.5-10.1) 8.0 mg/dL (8.5-10.1) White Blood Count 8.1 x10^3/uL (4.0-11.0) Red Blood Count 4.07 x10^6/uL (4.30-5.70) Hemoglobin 12.0 g/dL (13.0-17.5) Hematocrit 34.5 % (39.0-53.0) Mean Corpuscular Volume 85 fL (79-100) Mean Corpuscular Hemoglobin 29 pg (25-35) Mean Corpuscular Hemoglobin Concent 35 g/dL (31-37) Red Cell Distribution Width 13.4 % (11.5-14.5) Platelet Count 249 x10^3/uL (140-400) Neutrophils (%) (Auto) 76 % (31-73) Lymphocytes (%) (Auto) 12 % (24-48) Monocytes (%) (Auto) 12 % (0-9) Eosinophils (%) (Auto) 0 % (0-3) Basophils (%) (Auto) 0 % (0-3) Neutrophils # (Auto) 6.1 x10^3/uL (1.8-7.7) Lymphocytes # (Auto) 0.9 x10^3/uL (1.0-4.8) Monocytes # (Auto) 1.0 x10^3/uL (0.0-1.1) Eosinophils # (Auto) 0.0 x10^3/uL (0.0-0.7) Basophils # (Auto) 0.0 x10^3/uL (0.0-0.2) Triglycerides Level 54 mg/dL (0-150) Cholesterol Level 100 mg/dL (0-200) LDL Cholesterol, Calculated 71 mg/dL (0-100) VLDL Cholesterol, Calculated 11 mg/dL (0-40) Non-HDL Cholesterol Calculated 82 mg/dL (0-129) HDL Cholesterol 18 mg/dL (40-60) Cholesterol/HDL Ratio 5.6 Microbiology 09/15/19 Blood Culture - Preliminary, Resulted NO GROWTH AFTER 1 DAY Medications Current Medications Iohexol (Omnipaque 350 Mg/ml) 100 ml 1X ONCE IV Last administered on 09/15/19at 00:48; Start 09/15/19 at 00:30; Stop 09/15/19 at 00:31; Status DC Info (CONTRAST GIVEN -- Rx MONITORING) 1 each PRN DAILY PRN MC SEE COMMENTS; Start 09/15/19 at 00:30; Stop 09/17/19 at 00:29 Ceftriaxone Sodium (Rocephin) 1 gm 1X ONCE IVP Last administered on 09/15/19at 02:36; Start 09/15/19 at 02:30; Stop 09/15/19 at 02:31; Status DC Azithromycin (Zithromax) 500 mg 1X ONCE PO Last administered on 09/15/19at 02:35; Start 09/15/19 at 02:30; Stop 09/15/19 at 02:31; Status DC Ondansetron HCl (Zofran) 4 mg PRN Q8HRS PRN IV NAUSEA/VOMITING; Start 09/15/19 at 02:00; Stop 09/16/19 at 01:59; Status DC Morphine Sulfate (Morphine Sulfate) 4 mg PRN Q2HR PRN IV PAIN; Start 09/15/19 at 02:00; Stop 09/16/19 at 01:59; Status DC Acetaminophen (Tylenol) 650 mg PRN Q4HRS PRN PO FEVER > 100.3'F; Start 09/15/19 at 02:00; Stop 09/16/19 at 01:59; Status DC Lisinopril (Prinivil) 10 mg DAILY PO ; Start 09/15/19 at 09:00; Stop 09/15/19 at 10:09; Status DC Tamsulosin HCl (Flomax) 0.4 mg DAILY PO ; Start 09/15/19 at 09:00; Stop 09/15/19 at 10:09; Status DC Carvedilol (Coreg) 6.25 mg BIDWMEALS PO Last administered on 09/16/19at 09:01; Start 09/15/19 at 09:15 Ceftriaxone Sodium (Rocephin) 1 gm Q24H IVP ; Start 09/15/19 at 10:00; Status Cancel Azithromycin (Zithromax) 250 mg DAILY PO ; Start 09/16/19 at 09:00 Lisinopril (Prinivil) 10 mg HS PO Last administered on 09/15/19at 21:06; Start 09/15/19 at 21:00 Tamsulosin HCl (Flomax) 0.4 mg HS PO Last administered on 09/15/19at 21:07; Start 09/15/19 at 21:00 Enoxaparin Sodium (Lovenox 40mg Syringe) 40 mg Q24H SQ Last administered on 09/15/19at 11:56; Start 09/15/19 at 12:00 Ceftriaxone Sodium (Rocephin) 1 gm Q24H IVP Last administered on 09/15/19at 21:07; Start 09/15/19 at 21:00 Lactobacillus Rhamnosus (Culturelle) 1 cap BID PO Last administered on 09/16/19at 08:59; Start 09/15/19 at 21:00 Active Scripts Active Reported Carvedilol 25 Mg Tablet 6.25 Mg PO BIDWMEALS Flomax (Tamsulosin Hcl) 0.4 Mg Cap.er.24h 1 Cap PO DAILY Lisinopril 10 Mg Tablet 1 Tab PO DAILY Vitals/I & O Vital Sign - Last 24 Hours 09/15/19 09/15/19 09/15/19 09/15/19 11:30 15:30 17:12 19:00 Temp 97.8 98.2 97.4 97.8 98.2 97.4 Pulse 95 90 105 89 Resp 20 20 20 B/P (MAP) 114/59 (77) 109/83 (92) 131/82 (98) Pulse Ox 92 92 94 O2 Delivery Nasal Cannula Nasal Cannula Nasal Cannula O2 Flow Rate 5.0 5.0 6.0 09/15/19 09/15/19 09/15/19 09/16/19 20:00 21:06 22:46 02:41 Temp 98.4 99.2 98.4 99.2 Pulse 82 86 78 Resp 20 20 B/P (MAP) 162/87 (112) 127/87 (100) Pulse Ox 93 90 O2 Delivery Nasal Cannula Nasal Cannula Nasal Cannula O2 Flow Rate 6.0 6.0 6.0 09/16/19 09/16/19 06:00 09:01 Temp 99.2 99.2 Pulse 79 89 Resp 20 B/P (MAP) 113/88 (96) 115/76 Pulse Ox 94 O2 Delivery Nasal Cannula O2 Flow Rate 6.0 Intake and Output 09/15/19 09/15/19 09/16/19 15:00 23:00 07:00 Intake Total 575 ml 1050 ml 1550 ml Output Total 500 ml Balance 75 ml 1050 ml 1550 ml ERIS HINTON MD Sep 16, 2019 09:50
--- NOTE | 2019-09-16 10:44 | NUR ---
SW following. Discussed with RN, pt from a [facility]. Was released from a assisted in [place], [place] on 07/30/2019, asking to see HCFS due to no insurance. Pt was released from the assisted with cardiac meds. Pt is COVID-19 positive, currently requiring 6L NC. Pt is originally from [place], [place], per RN. SW will continue to follow for discharge planning needs.
[2019-09-16] MEDS: AZITHROMYCIN 250 MG TABLET. PO SCH (11:24)
--- NOTE | 2019-09-16 12:34 | PDOC2 ---
BECK HAZEL SHEET METAL JOURNEYMAN 09/16/19 1234: CARDIAC CONSULT DATE OF CONSULT Date of Consult DATE: 09/16/19 TIME: 12:06 REASON FOR CONSULT Reason for Consult: AFIB REFERRING PHYSICIAN Referring Physician: Dr. Kent SOURCE Source: Chart review, Patient HISTORY OF PRESENT ILLNESS HISTORY OF PRESENT ILLNESS This is a 69 yo male who presented secondary to shortness of breath and cough. Was noted with AFIB, which prompted this consult. Rate has been controlled. Patient has been incarcerated for the last 39 years. Was release from skilled nursing in July. Has been [facility] and doing well. Two days ago, developed shortness of breath. [place] as if he could not catch his breath. Has cough productive of clear sputum. Denies any chest pain, palpitations, dizziness, diaphoresis, or nausea/vomiting. Has mild LE edema, which he reports as chronic. Thinks he was diagnosed with AFIB in skilled nursing, but denies any prior cardiac workup. PAST MEDICAL HISTORY Cardiovascular: HTN Hepatobiliary: Hep A/B/C (C) Infectious disease: Other (TB, treated per patient ) Renal/: Other (retention) PAST SURGICAL HISTORY Past Surgical History: Other (wrist surgery ) FAMILY HISTORY Family History: Other (no pertinent history ) SOCIAL HISTORY Smoke: Quit (quit initially in 1988. Smoked for a short period following release from skilled nursing, but quit again.) ALCOHOL: none Drugs: None Lives: [facility] ([facility] ) CURRENT MEDICATIONS CURRENT MEDICATIONS Current Medications Medications (Trade) Dose Ordered Sig/Christy Route PRN Reason Start Time Stop Time Status Last Admin Dose Admin Azithromycin (Zithromax) 250 mg DAILY PO 09/16/19 09:00 09/16/19 11:24 Lisinopril (Prinivil) 10 mg HS PO 09/15/19 21:00 09/15/19 21:06 Tamsulosin HCl (Flomax) 0.4 mg HS PO 09/15/19 21:00 09/15/19 21:07 Ceftriaxone Sodium (Rocephin) 1 gm Q24H IVP 09/15/19 21:00 09/15/19 21:07 Lactobacillus Rhamnosus (Culturelle) 1 cap BID PO 09/15/19 21:00 09/16/19 08:59 ALLERGIES ALLERGIES: Coded Allergies: No Known Drug Allergies (Unverified , 09/15/19) ROS Review of System 14 point ROS conducted with pertinent positives noted above in HPI PHYSICAL EXAM General: Alert, Oriented X3, Cooperative, No acute distress HEENT: Atraumatic, Mucous membr. moist/pink Heart: Other (AFIB, rate controlled) Abdomen: Other (obese ) Extremities: Other (1+ bilateral LE edema ) Skin: No significant lesion Neuro: Normal speech Psych/Mental Status: Mental status NL, Mood NL MUSCULOSKELETAL: Osteoarthritic changes both hands VITALS/I&O VITALS/I&O: Vital Signs Date Time Temp Pulse Resp B/P (MAP) Pulse Ox O2 Delivery O2 Flow Rate FiO2 09/16/19 09:01 89 115/76 09/16/19 06:00 99.2 20 94 Nasal Cannula 6.0 99.2 I & O 09/15/19 09/15/19 09/16/19 15:00 23:00 07:00 Intake Total 575 ml 1050 ml 1550 ml Output Total 500 ml Balance 75 ml 1050 ml 1550 ml LABS Lab: Laboratory Tests Test 09/15/19 12:25 09/16/19 03:30 Sodium Level 130 mmol/L (136-145) L 129 mmol/L (136-145) L Potassium Level 3.9 mmol/L (3.5-5.1) 3.4 mmol/L (3.5-5.1) L Chloride Level 94 mmol/L (98-107) L 94 mmol/L (98-107) L Carbon Dioxide Level 31 mmol/L (21-32) 29 mmol/L (21-32) Anion Gap 5 (6-14) L 6 (6-14) Blood Urea Nitrogen 13 mg/dL (8-26) 11 mg/dL (8-26) Creatinine 0.8 mg/dL (0.7-1.3) 0.8 mg/dL (0.7-1.3) Estimated GFR (Cockcroft-Gault) 96.1 96.1 Glucose Level 148 mg/dL (70-99) H 123 mg/dL (70-99) H Calcium Level 7.8 mg/dL (8.5-10.1) L 8.0 mg/dL (8.5-10.1) L White Blood Count 8.1 x10^3/uL (4.0-11.0) Red Blood Count 4.07 x10^6/uL (4.30-5.70) L Hemoglobin 12.0 g/dL (13.0-17.5) L Hematocrit 34.5 % (39.0-53.0) L Mean Corpuscular Volume 85 fL (79-100) Mean Corpuscular Hemoglobin 29 pg (25-35) Mean Corpuscular Hemoglobin Concent 35 g/dL (31-37) Red Cell Distribution Width 13.4 % (11.5-14.5) Platelet Count 249 x10^3/uL (140-400) Neutrophils (%) (Auto) 76 % (31-73) H Lymphocytes (%) (Auto) 12 % (24-48) L Monocytes (%) (Auto) 12 % (0-9) H Eosinophils (%) (Auto) 0 % (0-3) Basophils (%) (Auto) 0 % (0-3) Neutrophils # (Auto) 6.1 x10^3/uL (1.8-7.7) Lymphocytes # (Auto) 0.9 x10^3/uL (1.0-4.8) L Monocytes # (Auto) 1.0 x10^3/uL (0.0-1.1) Eosinophils # (Auto) 0.0 x10^3/uL (0.0-0.7) Basophils # (Auto) 0.0 x10^3/uL (0.0-0.2) Triglycerides Level 54 mg/dL (0-150) Cholesterol Level 100 mg/dL (0-200) LDL Cholesterol, Calculated 71 mg/dL (0-100) VLDL Cholesterol, Calculated 11 mg/dL (0-40) Non-HDL Cholesterol Calculated 82 mg/dL (0-129) HDL Cholesterol 18 mg/dL (40-60) L Cholesterol/HDL Ratio 5.6 Laboratory Tests 09/16/19 03:30 Laboratory Tests 09/15/19 12:25 09/16/19 03:30 ASSESSMENT/PLAN ASSESSMENT/PLAN 1. Acute respiratory failure secondary to COVID PNA 2. AFIB; reportedly diagnosed in skilled nursing, no prior cardiac workup. Rate controlled 3. Hypertension; controlled 4. Hyponatremia 5. Elevated glucose 6. H/o hepatitis C 7. Hypokalemia Recommendations TSH Lipids A1C Check Mg- replace as warranted Convert coreg to metoprolol for rate control D/w primary size worker, will start OAC with Eliquis. R/b/a discusses with patient and he is agreeable. Will check PT/INR technical services consultant consult Outpatient echocardiogram to assess LV systolic function Supportive care TRAY THAYER MD 09/16/19 1730: CARDIAC CONSULT ASSESSMENT/PLAN ASSESSMENT/PLAN Patient seen and evaluated I agree with our nurse practitioners assessment and plan. Acute respiratory failure secondary to COVID pneumonia. Antibiotics and treatment as per ID and pulmonary. Future echo to evaluate LV function. Atrial fibrillation. Rate controlled. Patient possibly had this while i ncarcerated but it is somewhat unclear. Will start Eliquis at this time. Continue to monitor rhythm and rate. Hypertension. Controlled. Will monitor. History of hepatitis C. Thank you for allowing us to participate in the care of your patient. BECK HAZEL APRN Sep 16, 2019 12:34 TRAY THAYER MD Sep 16, 2019 17:30
[2019-09-16] MEDS ORDERED: POTASSIUM CHLORIDE 20 MEQ TABLET.ER. PO ONE (12:45)
[2019-09-16 12:55] LABS: PROTHROMBIN TIME PATIENT 14.9 SEC (11.7-14.0)
--- NOTE | 2019-09-16 13:01 | CONS ---
DATE OF CONSULTATION: PULMONARY CONSULTATION ATTENDING PHYSICIAN: Dr. Rojas. REASON FOR CONSULTATION: COVID pneumonia, hypoxia. HISTORY OF PRESENT ILLNESS: The patient is a 69-year-old male, who smoked for at least 35 years. He was in [facility] for 25 some years. The patient also had history of tuberculosis in the late 80s and was treated for 1 year. He also had history of hepatitis C from intravenous heroin use. He was doing reasonably well and living in a [facility] house with other people. He woke up with shortness of breath. He had no known sick contacts with COVID infection. He had a low-grade fever. No chest pain. No headache. No nausea, vomiting, or diarrhea. CT chest was performed, which was reviewed by me. He had evidence of bilateral ground glass infiltrates and some pleural thickening. There was no pulmonary embolism seen. His COVID test came back positive. PAST MEDICAL HISTORY: Significant for hypertension; suspected chronic obstructive pulmonary disease, could be moderate to severe; underlying obesity; history of tuberculosis, treated in the s for 1 year; history of heroin use; history of hepatitis C. PAST SURGICAL HISTORY: No recent surgery. FAMILY HISTORY: Noncontributory to lungs. ALLERGIES: None. MEDICATIONS: Reviewed as listed in the MRAD. REVIEW OF SYSTEMS: A 12-point system obtained; pertinent positives discussed in my history of present illness, otherwise noncontributory. All systems that were negative and were reviewed as well. SOCIAL HISTORY: Smoked for about 35 years before quitting; was in [facility] for 25+ years; the patient also had tuberculosis treated in the s for 1 year; history of intravenous heroin use and resulting in hepatitis C. PHYSICAL EXAMINATION: VITAL SIGNS: Reviewed; T-max 99.2, blood pressure stable, pulse oximetry 94% on 6 liters. NECK: With no JVD. GENERAL: Visual examination was done due to COVID pandemic. ABDOMEN: Soft, obese. EXTREMITIES: With no pitting edema. IMPRESSION: 1. Acute hypoxic respiratory failure secondary to COVID-[address] chest with bilateral ground glass infiltrates and some pleural thickening. No evidence of any pulmonary embolism. Findings are consistent with COVID-19 pneumonia. 3. COVID-19 positive. 4. Underlying chronic obstructive pulmonary disease. 5. History of tuberculosis, treated in the 80s for 1 year. 6. 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 RECOMMENDATIONS: 1. Continue present oxygen at 6 liters; keep saturation 92% and above. 2. May need high-flow oxygen via Vapotherm. 3. Continue antibiotics, azithromycin. 4. We will give convalescent plasma. The patient is agreeable to that. 5. Lovenox for deep vein thrombosis prophylaxis. 6. Consider Infectious Disease consult. 7. We will follow along with you. Discussed with RN and Respiratory Therapy. TIME SPENT: Critical care time 37 minutes. CARLINE ELIZONDO MD DR: MEG/kely JOB#: [id number] / [id number]
[2019-09-16] MEDS: APIXABAN 5 MG TABLET. PO SCH ×2 (13:27→21:55)
[2019-09-16] MEDS ORDERED: ACETAMINOPHEN 325 MG TABLET. PO PRN (21:15)
[2019-09-16] MEDS: LORazepam 1 MG TABLET PO PRN (21:55)
[2019-09-16] MEDS: TAMSULOSIN 0.4 MG CAP.ER.24H. PO SCH (21:55)
[2019-09-16] MEDS: METOPROLOL TART IMMED RELEASE 50 MG TABLET. PO SCH (21:56)
[2019-09-16] MEDS: LISINOPRIL 10 MG TABLET PO SCH (21:59)
[2019-09-16] MEDS: cefTRIAXone IV Push 1 GM VIAL. IVP SCH (22:25)
[2019-09-17] VITALS (7 sets, daily range): BP systolic 113–161; BP diastolic 65–99
[2019-09-17 01:08] LABS: HEMOGLOBIN A1C 6.2 % (4.8-5.6)
--- NOTE | 2019-09-17 02:10 | NUR ---
Pt experienced increased temperature and increased restlessness/ anxiety around 2044. Provider paged at 2055. Provider returned call at 2099. Provider updated on pt events leading to admission, pt diagnosis and current medical situation, medications and current medical interventions. Provider updated on vital signs and increased activity. Provider ordered Tylenol 650 PO Q6H PRN aswell as Ativan 1mg PO Q6HRS PRN. Blood bank called this RN at 2117 to inform this RN that Plasma for Covid treatment is ready for administration. Blood consent obtained at 2244. Plasma obtained at 0 and verified at 0. Plasma administration started at 2314. BP 123/67 HR 82 O2 95 T= 97.6 R 30. At the end of administration at roughly 0030 BP 113/ 65 HR 82 O2 95 T= 97.6 R 25. Will continue to assess and monitor. Addendum: 09/17/19 at 0406 by MARVA BARON RN RN Care provider mistake when mentioning the time transfusion ended. Transfusion roughly ended at 0100, approximate volume of 300ML NS flush started immediately after.
--- NOTE | 2019-09-17 08:23 | PDOC ---
Infectious Disease Note Vital Sign Vital Signs Vital Signs Date Time Temp Pulse Resp B/P (MAP) Pulse Ox O2 Delivery O2 Flow Rate FiO2 09/17/19 06:00 100 NonRebreather Mask 6.0 09/17/19 03:00 98.7 94 27 125/84 (98) 98.7 Physical Exam PHYSICAL EXAM GEN.: No apparent distress. Alert and oriented. HEENT: Head is normocephalic, atraumatic NECK: Supple. LUNGS: Clear to auscultation. HEART: RRR, S1, S2 present. Peripheral pulses intact ABDOMEN: Soft, nontender. Positive bowel sounds. EXTREMITIES: Without any cyanosis. NEUROLOGIC: Normal speech, normal tone PSYCHIATRIC: Normal affect, normal mood. SKIN: No ulcerations Labs Micro Microbiology 09/15/19 Blood Culture - Preliminary, Resulted NO GROWTH AFTER 2 DAYS Objective Assessment COVID + 09/13 s/p Plasma 09/15 Fever ? Plasma Acute Hypoxic resp failure Mild thrush Afib H/o Hep C - treated H/o TB - treated Plan Plan of Care Azithromycin and Rocephin 09/14 Add CRP/LDH/repeat Troponin/LFTs F/u labs and cults May need Remdesivir but f/u LFTs and 02 sat - appears to be improving D/w nursing Thank you # [id number] ALVARADO TERRAZAS MD Sep 17, 2019 08:23
[2019-09-17 08:28] LABS: CALCIUM 7.9 mg/dL (8.5-10.1); CREATININE 0.8 mg/dL (0.7-1.3); GFR 96.1; MAGNESIUM 2.1 mg/dL (1.8-2.4); POTASSIUM 3.6 mmol/L (3.5-5.1)
[2019-09-17 08:30] LABS: ALBUMIN 2.3 g/dL (3.4-5.0); C-REACTIVE PROTEIN 45.3 mg/L (0-3.3); DIRECT BILIRUBIN 0.2 mg/dL (0.0-0.2); TOTAL BILIRUBIN 0.4 mg/dL (0.2-1.0); TOTAL PROTEIN 6.9 g/dL (6.4-8.2)
[2019-09-17 08:36] LABS: BASO # 0.1 x10^3/uL (0.0-0.2); BASO % 1 % (0-3); EOS # 0.1 x10^3/uL (0.0-0.7); EOS % 1 % (0-3); HEMATOCRIT 35.3 % (39.0-53.0); HEMOGLOBIN 12.4 g/dL (13.0-17.5); LYMPH # 0.9 x10^3/uL (1.0-4.8); LYMPH % 12 % (24-48); MEAN CORPUSCULAR HEMOGLOBIN 30 pg (25-35); MEAN CORPUSCULAR HGB CONC 35 g/dL (31-37); MEAN CORPUSCULAR VOLUME 86 fL (79-100); MONO # 0.9 x10^3/uL (0.0-1.1); MONO % 11 % (0-9); NEUT # 5.8 x10^3/uL (1.8-7.7); NEUT % 75 % (31-73); PLATELET COUNT 312 x10^3/uL (140-400); RED BLOOD COUNT 4.11 x10^6/uL (4.30-5.70); RED CELL DISTRIBUTION WIDTH 13.4 % (11.5-14.5); WHITE BLOOD COUNT 7.7 x10^3/uL (4.0-11.0)
--- NOTE | 2019-09-17 09:11 | PDOC ---
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 history of tuberculosis in the late 80s and was treated for 1 year. 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 Plan ICU BED Consult pulmonology Consult cardiology Continue current management Supportive measures Monitor oximetry closely Isolation precaution adding steroids IV SOLUMEDROL 60 MG Q 8 HRS Continue antibiotics, azithromycin. s/p convalescent plasma. 36 MIN CC TIME History of Present Illness History of Present Illness No acute events reported overnight, case discussed with nursing staff patient in no acute distress no complaints during my visit, patient asymptomatic, he was quite concerned given the diagnosis of COVID-19, reassurance has been provided, plan of care explained in detail Vitals Vitals Vital Signs Date Time Temp Pulse Resp B/P (MAP) Pulse Ox O2 Delivery O2 Flow Rate FiO2 09/17/19 06:00 100 NonRebreather Mask 6.0 09/17/19 03:00 98.7 94 27 125/84 (98) 98.7 Physical Exam Physical Exam GEN.: No apparent distress. Alert and oriented. HEENT: Head is normocephalic, atraumatic NECK: Supple. LUNGS: Clear to auscultation. HEART: RRR, S1, S2 present. Peripheral pulses intact ABDOMEN: Soft, nontender. Positive bowel sounds. EXTREMITIES: Without any cyanosis. NEUROLOGIC: Normal speech, normal tone PSYCHIATRIC: Normal affect, normal mood. SKIN: No ulcerations General: Alert, Oriented X3, Cooperative, No acute distress Heart: Other (AFIB, rate controlled) Abdomen: Soft, No tenderness, Other (obese ) Extremities: Other (1+ bilateral LE edema ) Skin: No significant lesion Labs LABS EXAM: CT ANGIOGRAPHY OF THE CHEST WITH AND WITHOUT CONTRAST. HISTORY: Dyspnea, pneumomediastinum, infiltrates. TECHNIQUE: Computed tomographic angiography of the chest was performed before and after the intravenous administration of iodinated contrast. 3-D maximum intensity projections were also performed. One or more of the following individualized dose reduction techniques were utilized for this examination: 1. Automated exposure control. 2. Adjustment of the mA and/or kV according to patient size. 3. Use of iterative reconstruction technique. COMPARISON: None. FINDINGS: Images of the upper abdomen reveal a small hiatal hernia. Bone windows reveal no suspicious lesions. No pulmonary emboli are identified. There is no aortic dissection or aneurysm. There are peripheral groundglass opacities on the left greater than right. There is no clear septal line thickening. The There is mild diffuse bronchial wall thickening. Scattered prominent mediastinal and hilar lymph nodes are likely reactive in this setting. One left hilar node on image 76 measures 2.0 x 1.5 cm. There is a trace left pleural effusion. There is no pericardial effusion. The heart is not enlarged. IMPRESSION: 1. No pulmonary embolism. 2. Peripheral bilateral groundglass infiltrates are nonspecific. Considerations include atypical pneumonia in the acute setting. If more chronic, cryptogenic organizing pneumonia, chronic eosinophilic pneumonia, or alveolar sarcoidosis. Prominent mediastinal lymph nodes are likely reactive in this setting. 3. Small hiatal hernia. Electronically signed by: Franklyn Parsons MD (09/15/2019 1:40 AM) [facility] DICTATED and SIGNED BY: SHARRI PARSONS MD PATIENT: NEEMA ECHEVARRIA ACCOUNT: [id number] : 1950 LOCATION: ER AGE: 69 SEX: M EXAM STATUS: REG ER ORD. PHYSICIAN: MAURIICO VELAZQUEZ Jr. DO REASON: possible PE; trace pneumomediastinum on CXR, [id number], 100 ML IV PROCEDURE: CT ANGIOGRAPHY CHEST EXAM: CT ANGIOGRAPHY OF THE CHEST WITH AND WITHOUT CONTRAST. HISTORY: Dyspnea, pneumomediastinum, infiltrates. TECHNIQUE: Computed tomographic angiography of the chest was performed before and after the intravenous administration of iodinated contrast. 3-D maximum intensity projections were also performed. One or more of the following individualized dose reduction techniques were utilized for this examination: 1. Automated exposure control. 2. Adjustment of the mA and/or kV according to patient size. 3. Use of iterative reconstruction technique. COMPARISON: None. FINDINGS: Images of the upper abdomen reveal a small hiatal hernia. Bone windows reveal no suspicious lesions. No pulmonary emboli are identified. There is no aortic dissection or aneurysm. There are peripheral groundglass opacities on the left greater than right. There is no clear septal line thickening. The There is mild diffuse bronchial wall thickening. Scattered prominent mediastinal and hilar lymph nodes are likely reactive in this setting. One left hilar node on image 76 measures 2.0 x 1.5 cm. There is a trace left pleural effusion. There is no pericardial effusion. The heart is not enlarged. IMPRESSION: 1. No pulmonary embolism. 2. Peripheral bilateral groundglass infiltrates are nonspecific. Considerations include atypical pneumonia in the acute setting. If more chronic, cryptogenic organizing pneumonia, chronic eosinophilic pneumonia, or alveolar sarcoidosis. Prominent mediastinal lymph nodes are likely reactive in this setting. 3. Small hiatal hernia. Electronically signed by: Franklyn Parsons MD (09/15/2019 1:40 AM) [facility] Laboratory Tests Test 09/17/19 07:45 White Blood Count 7.7 x10^3/uL (4.0-11.0) Red Blood Count 4.11 x10^6/uL (4.30-5.70) Hemoglobin 12.4 g/dL (13.0-17.5) Hematocrit 35.3 % (39.0-53.0) Mean Corpuscular Volume 86 fL (79-100) Mean Corpuscular Hemoglobin 30 pg (25-35) Mean Corpuscular Hemoglobin Concent 35 g/dL (31-37) Red Cell Distribution Width 13.4 % (11.5-14.5) Platelet Count 312 x10^3/uL (140-400) Neutrophils (%) (Auto) 75 % (31-73) Lymphocytes (%) (Auto) 12 % (24-48) Monocytes (%) (Auto) 11 % (0-9) Eosinophils (%) (Auto) 1 % (0-3) Basophils (%) (Auto) 1 % (0-3) Neutrophils # (Auto) 5.8 x10^3/uL (1.8-7.7) Lymphocytes # (Auto) 0.9 x10^3/uL (1.0-4.8) Monocytes # (Auto) 0.9 x10^3/uL (0.0-1.1) Eosinophils # (Auto) 0.1 x10^3/uL (0.0-0.7) Basophils # (Auto) 0.1 x10^3/uL (0.0-0.2) Prothrombin Time 15.0 SEC (11.7-14.0) Prothromb Time International Ratio 1.2 (0.8-1.1) Sodium Level 132 mmol/L (136-145) Potassium Level 3.6 mmol/L (3.5-5.1) Chloride Level 96 mmol/L (98-107) Carbon Dioxide Level 31 mmol/L (21-32) Anion Gap 5 (6-14) Blood Urea Nitrogen 8 mg/dL (8-26) Creatinine 0.8 mg/dL (0.7-1.3) Estimated GFR (Cockcroft-Gault) 96.1 Glucose Level 117 mg/dL (70-99) Calcium Level 7.9 mg/dL (8.5-10.1) Magnesium Level 2.1 mg/dL (1.8-2.4) Total Bilirubin 0.4 mg/dL (0.2-1.0) Direct Bilirubin 0.2 mg/dL (0.0-0.2) Aspartate Amino Transf (AST/SGOT) 30 U/L (15-37) Alanine Aminotransferase (ALT/SGPT) 61 U/L (16-63) Alkaline Phosphatase 69 U/L (46-116) Lactate Dehydrogenase 258 U/L (85-227) C-Reactive Protein, Quantitative 45.3 mg/L (0-3.3) Total Protein 6.9 g/dL (6.4-8.2) Albumin 2.3 g/dL (3.4-5.0) Assessment and Plan Assessmemt and Plan Problems Medical Problems: (1) Hypoxemia Status: Acute (2) Person under investigation for COVID-19 Status: Acute (3) Pneumonia Status: Acute Comment Review of Relevant I have reviewed the following items syed (where applicable) has been applied. Labs Laboratory Tests Test 09/15/19 12:25 09/16/19 03:30 09/17/19 07:45 Sodium Level 130 mmol/L (136-145) 129 mmol/L (136-145) 132 mmol/L (136-145) Potassium Level 3.9 mmol/L (3.5-5.1) 3.4 mmol/L (3.5-5.1) 3.6 mmol/L (3.5-5.1) Chloride Level 94 mmol/L (98-107) 94 mmol/L (98-107) 96 mmol/L (98-107) Carbon Dioxide Level 31 mmol/L (21-32) 29 mmol/L (21-32) 31 mmol/L (21-32) Anion Gap 5 (6-14) 6 (6-14) 5 (6-14) Blood Urea Nitrogen 13 mg/dL (8-26) 11 mg/dL (8-26) 8 mg/dL (8-26) Creatinine 0.8 mg/dL (0.7-1.3) 0.8 mg/dL (0.7-1.3) 0.8 mg/dL (0.7-1.3) Estimated GFR (Cockcroft-Gault) 96.1 96.1 96.1 Glucose Level 148 mg/dL (70-99) 123 mg/dL (70-99) 117 mg/dL (70-99) Calcium Level 7.8 mg/dL (8.5-10.1) 8.0 mg/dL (8.5-10.1) 7.9 mg/dL (8.5-10.1) White Blood Count 8.1 x10^3/uL (4.0-11.0) 7.7 x10^3/uL (4.0-11.0) Red Blood Count 4.07 x10^6/uL (4.30-5.70) 4.11 x10^6/uL (4.30-5.70) Hemoglobin 12.0 g/dL (13.0-17.5) 12.4 g/dL (13.0-17.5) Hematocrit 34.5 % (39.0-53.0) 35.3 % (39.0-53.0) Mean Corpuscular Volume 85 fL (79-100) 86 fL (79-100) Mean Corpuscular Hemoglobin 29 pg (25-35) 30 pg (25-35) Mean Corpuscular Hemoglobin Concent 35 g/dL (31-37) 35 g/dL (31-37) Red Cell Distribution Width 13.4 % (11.5-14.5) 13.4 % (11.5-14.5) Platelet Count 249 x10^3/uL (140-400) 312 x10^3/uL (140-400) Neutrophils (%) (Auto) 76 % (31-73) 75 % (31-73) Lymphocytes (%) (Auto) 12 % (24-48) 12 % (24-48) Monocytes (%) (Auto) 12 % (0-9) 11 % (0-9) Eosinophils (%) (Auto) 0 % (0-3) 1 % (0-3) Basophils (%) (Auto) 0 % (0-3) 1 % (0-3) Neutrophils # (Auto) 6.1 x10^3/uL (1.8-7.7) 5.8 x10^3/uL (1.8-7.7) Lymphocytes # (Auto) 0.9 x10^3/uL (1.0-4.8) 0.9 x10^3/uL (1.0-4.8) Monocytes # (Auto) 1.0 x10^3/uL (0.0-1.1) 0.9 x10^3/uL (0.0-1.1) Eosinophils # (Auto) 0.0 x10^3/uL (0.0-0.7) 0.1 x10^3/uL (0.0-0.7) Basophils # (Auto) 0.0 x10^3/uL (0.0-0.2) 0.1 x10^3/uL (0.0-0.2) Prothrombin Time 14.9 SEC (11.7-14.0) 15.0 SEC (11.7-14.0) Prothromb Time International Ratio 1.2 (0.8-1.1) 1.2 (0.8-1.1) Hemoglobin A1c 6.2 % (4.8-5.6) Magnesium Level 2.0 mg/dL (1.8-2.4) 2.1 mg/dL (1.8-2.4) Triglycerides Level 54 mg/dL (0-150) Cholesterol Level 100 mg/dL (0-200) LDL Cholesterol, Calculated 71 mg/dL (0-100) VLDL Cholesterol, Calculated 11 mg/dL (0-40) Non-HDL Cholesterol Calculated 82 mg/dL (0-129) HDL Cholesterol 18 mg/dL (40-60) Cholesterol/HDL Ratio 5.6 Total Bilirubin 0.4 mg/dL (0.2-1.0) Direct Bilirubin 0.2 mg/dL (0.0-0.2) Aspartate Amino Transf (AST/SGOT) 30 U/L (15-37) Alanine Aminotransferase (ALT/SGPT) 61 U/L (16-63) Alkaline Phosphatase 69 U/L (46-116) Lactate Dehydrogenase 258 U/L (85-227) C-Reactive Protein, Quantitative 45.3 mg/L (0-3.3) Total Protein 6.9 g/dL (6.4-8.2) Albumin 2.3 g/dL (3.4-5.0) Laboratory Tests Test 09/17/19 07:45 White Blood Count 7.7 x10^3/uL (4.0-11.0) Red Blood Count 4.11 x10^6/uL (4.30-5.70) Hemoglobin 12.4 g/dL (13.0-17.5) Hematocrit 35.3 % (39.0-53.0) Mean Corpuscular Volume 86 fL (79-100) Mean Corpuscular Hemoglobin 30 pg (25-35) Mean Corpuscular Hemoglobin Concent 35 g/dL (31-37) Red Cell Distribution Width 13.4 % (11.5-14.5) Platelet Count 312 x10^3/uL (140-400) Neutrophils (%) (Auto) 75 % (31-73) Lymphocytes (%) (Auto) 12 % (24-48) Monocytes (%) (Auto) 11 % (0-9) Eosinophils (%) (Auto) 1 % (0-3) Basophils (%) (Auto) 1 % (0-3) Neutrophils # (Auto) 5.8 x10^3/uL (1.8-7.7) Lymphocytes # (Auto) 0.9 x10^3/uL (1.0-4.8) Monocytes # (Auto) 0.9 x10^3/uL (0.0-1.1) Eosinophils # (Auto) 0.1 x10^3/uL (0.0-0.7) Basophils # (Auto) 0.1 x10^3/uL (0.0-0.2) Prothrombin Time 15.0 SEC (11.7-14.0) Prothromb Time International Ratio 1.2 (0.8-1.1) Sodium Level 132 mmol/L (136-145) Potassium Level 3.6 mmol/L (3.5-5.1) Chloride Level 96 mmol/L (98-107) Carbon Dioxide Level 31 mmol/L (21-32) Anion Gap 5 (6-14) Blood Urea Nitrogen 8 mg/dL (8-26) Creatinine 0.8 mg/dL (0.7-1.3) Estimated GFR (Cockcroft-Gault) 96.1 Glucose Level 117 mg/dL (70-99) Calcium Level 7.9 mg/dL (8.5-10.1) Magnesium Level 2.1 mg/dL (1.8-2.4) Total Bilirubin 0.4 mg/dL (0.2-1.0) Direct Bilirubin 0.2 mg/dL (0.0-0.2) Aspartate Amino Transf (AST/SGOT) 30 U/L (15-37) Alanine Aminotransferase (ALT/SGPT) 61 U/L (16-63) Alkaline Phosphatase 69 U/L (46-116) Lactate Dehydrogenase 258 U/L (85-227) C-Reactive Protein, Quantitative 45.3 mg/L (0-3.3) Total Protein 6.9 g/dL (6.4-8.2) Albumin 2.3 g/dL (3.4-5.0) Microbiology 09/15/19 Blood Culture - Preliminary, Resulted NO GROWTH AFTER 2 DAYS Medications Current Medications Iohexol (Omnipaque 350 Mg/ml) 100 ml 1X ONCE IV Last administered on 09/15/19at 00:48; Start 09/15/19 at 00:30; Stop 09/15/19 at 00:31; Status DC Info (CONTRAST GIVEN -- Rx MONITORING) 1 each PRN DAILY PRN MC SEE COMMENTS; Start 09/15/19 at 00:30; Stop 09/17/19 at 00:29; Status DC Ceftriaxone Sodium (Rocephin) 1 gm 1X ONCE IVP Last administered on 09/15/19at 02:36; Start 09/15/19 at 02:30; Stop 09/15/19 at 02:31; Status DC Azithromycin (Zithromax) 500 mg 1X ONCE PO Last administered on 09/15/19at 02:35; Start 09/15/19 at 02:30; Stop 09/15/19 at 02:31; Status DC Ondansetron HCl (Zofran) 4 mg PRN Q8HRS PRN IV NAUSEA/VOMITING; Start 09/15/19 at 02:00; Stop 09/16/19 at 01:59; Status DC Morphine Sulfate (Morphine Sulfate) 4 mg PRN Q2HR PRN IV PAIN; Start 09/15/19 at 02:00; Stop 09/16/19 at 01:59; Status DC Acetaminophen (Tylenol) 650 mg PRN Q4HRS PRN PO FEVER > 100.3'F; Start 09/15/19 at 02:00; Stop 09/16/19 at 01:59; Status DC Lisinopril (Prinivil) 10 mg DAILY PO ; Start 09/15/19 at 09:00; Stop 09/15/19 at 10:09; Status DC Tamsulosin HCl (Flomax) 0.4 mg DAILY PO ; Start 09/15/19 at 09:00; Stop 09/15/19 at 10:09; Status DC Carvedilol (Coreg) 6.25 mg BIDWMEALS PO Last administered on 09/16/19at 09:01; Start 09/15/19 at 09:15; Stop 09/16/19 at 12:34; Status DC Ceftriaxone Sodium (Rocephin) 1 gm Q24H IVP ; Start 09/15/19 at 10:00; Status Cancel Azithromycin (Zithromax) 250 mg DAILY PO Last administered on 09/16/19at 11:24; Start 09/16/19 at 09:00 Lisinopril (Prinivil) 10 mg HS PO Last administered on 09/16/19at 21:59; Start 09/15/19 at 21:00 Tamsulosin HCl (Flomax) 0.4 mg HS PO Last administered on 09/16/19at 21:55; S tart 09/15/19 at 21:00 Enoxaparin Sodium (Lovenox 40mg Syringe) 40 mg Q24H SQ Last administered on 09/15/19at 11:56; Start 09/15/19 at 12:00; Stop 09/16/19 at 12:36; Status DC Ceftriaxone Sodium (Rocephin) 1 gm Q24H IVP Last administered on 09/16/19at 22:2 5; Start 09/15/19 at 21:00 Lactobacillus Rhamnosus (Culturelle) 1 cap BID PO Last administered on 09/16/19at 21:55; Start 09/15/19 at 21:00 Potassium Chloride (Klor-Con) 20 meq 1X ONCE PO Last administered on 09/16/19at 13:27; Start 09/16/19 at 12:45; Stop 09/16/19 at 12:46; Status DC Apixaban (Eliquis) 5 mg BID PO Last administered on 09/16/19at 21:55; Start 09/16/19 at 13:00 Metoprolol Tartrate (Lopressor) 50 mg BID PO Last administered on 09/16/19 21:56; Start 09/16/19 at 21:00 Acetaminophen (Tylenol) 650 mg PRN Q6HRS PRN PO FEVER > 100.3'F Last administered on 09/16/19 21:55; Start 09/16/19 at 21:15 Lorazepam (Ativan) 1 mg PRN Q6HRS PRN PO ANXIETY / AGITATION Last administered on 09/16/19at 21:55; Start 09/16/19 at 21:15 Nystatin (Nystatin Oral Susp) 5 ml [id number] ; Start 09/17/19 at 09:00 Active Scripts Active Reported Carvedilol 25 Mg Tablet 6.25 Mg PO BIDWMEALS Flomax (Tamsulosin Hcl) 0.4 Mg Cap.er.24h 1 Cap PO DAILY Lisinopril 10 Mg Tablet 1 Tab PO DAILY Vitals/I & O Vital Sign - Last 24 Hours 09/16/19 09/16/19 09/16/19 09/16/19 11:00 15:00 20:00 20:00 Temp 98.3 98.3 100.1 98.3 98.3 100.1 Pulse 88 95 94 Resp 21 22 31 B/P (MAP) 116/77 (90) 148/90 (109) 183/96 (125) Pulse Ox 96 95 94 O2 Delivery Nasal Cannula Nasal Cannula Nasal Cannula Nasal Cannula O2 Flow Rate 6.0 6.0 6.0 6.0 09/16/19 09/16/19 09/16/19 09/16/19 21:56 21:59 23:15 23:15 Temp 97.6 97.6 97.6 97.6 Pulse 96 106 82 82 Resp 30 26 B/P (MAP) 183/96 183/96 123/67 123/67 (85) Pulse Ox 95 O2 Delivery Nasal Cannula O2 Flow Rate 6.0 09/16/19 09/16/19 09/17/19 09/17/19 23:30 23:30 00:00 00:00 Temp 97.8 97.8 97.8 97.8 97.8 97.8 97.8 97.8 Pulse 82 82 82 82 Resp 32 32 27 27 B/P (MAP) 122/64 122/64 (83) 123/77 123/77 (92) Pulse Ox 95 94 O2 Delivery Nasal Cannula Nasal Cannula O2 Flow Rate 6.0 6.0 09/17/19 09/17/19 09/17/19 00:30 03:00 06:00 Temp 97.8 98.7 97.8 98.7 Pulse 82 94 Resp 25 27 B/P (MAP) 113/65 125/84 (98) Pulse Ox 94 100 O2 Delivery Nasal Cannula NonRebreather Mask O2 Flow Rate 6.0 6.0 Intake and Output 09/16/19 09/16/19 09/17/19 15:00 23:00 07:00 Intake Total 1690 ml 1200 ml 1300 ml Output Total 600 ml Balance 1690 ml 1200 ml 700 ml CHARY GOODWIN MD Sep 17, 2019 09:11
[2019-09-17] MEDS: LACTOBACILLUS RHAMNOSUS GG 1 CAPSULE. PO SCH ×2 (09:27→22:43)
[2019-09-17] MEDS: APIXABAN 5 MG TABLET. PO SCH ×2 (09:27→22:43)
[2019-09-17] MEDS: AZITHROMYCIN 250 MG TABLET. PO SCH (09:28)
[2019-09-17] MEDS: NYSTATIN 100,000 UNITS/ML 5 ML ORAL.SUSP. SWSW SCH ×4 (09:28→22:43)
[2019-09-17] MEDS: METOPROLOL TART IMMED RELEASE 50 MG TABLET. PO SCH ×2 (09:29→22:46)
--- NOTE | 2019-09-17 10:17 | NUR ---
SS following up with discharge planning. SS reviewed pt chart and discussed with pt RN. Pt is currently on 6 liters of oxygen and IV Rocephin. Pt COVID19 positive. Pt is self pay pt. [facility] assisting with completing Medicaid application. SS will continue to follow for discharge planning.
[2019-09-17 11:28] LABS: BASE EXCESS ABG 3 mmol/L (-3-3); HCO3 ABG 26 mmol/L (21-28); PCO2 ABG 35 mmHg (35-46); PO2 ABG 67 mmHg (65-108); SAT O2 ABG 94 % (92-99)
[2019-09-17 11:30] LABS: FIO2 ABG 40
--- NOTE | 2019-09-17 11:33 | PDOC ---
PULMONARY PROGRESS NOTES Subjective no soa Vitals Vital Signs Date Time Temp Pulse Resp B/P (MAP) Pulse Ox O2 Delivery O2 Flow Rate FiO2 09/17/19 11:10 Nasal Cannula 5.0 09/17/19 09:29 99 114/79 09/17/19 06:00 100 09/17/19 03:00 98.7 27 98.7 Comments visual exam done due to COVID pandemia no soa, no rash General: Alert, No acute distress Labs Laboratory Tests Test 09/15/19 12:25 09/16/19 03:30 09/17/19 07:45 09/17/19 11:10 Sodium Level 130 mmol/L (136-145) 129 mmol/L (136-145) 132 mmol/L (136-145) Potassium Level 3.9 mmol/L (3.5-5.1) 3.4 mmol/L (3.5-5.1) 3.6 mmol/L (3.5-5.1) Chloride Level 94 mmol/L (98-107) 94 mmol/L (98-107) 96 mmol/L (98-107) Carbon Dioxide Level 31 mmol/L (21-32) 29 mmol/L (21-32) 31 mmol/L (21-32) Anion Gap 5 (6-14) 6 (6-14) 5 (6-14) Blood Urea Nitrogen 13 mg/dL (8-26) 11 mg/dL (8-26) 8 mg/dL (8-26) Creatinine 0.8 mg/dL (0.7-1.3) 0.8 mg/dL (0.7-1.3) 0.8 mg/dL (0.7-1.3) Estimated GFR (Cockcroft-Gault) 96.1 96.1 96.1 Glucose Level 148 mg/dL (70-99) 123 mg/dL (70-99) 117 mg/dL (70-99) Calcium Level 7.8 mg/dL (8.5-10.1) 8.0 mg/dL (8.5-10.1) 7.9 mg/dL (8.5-10.1) White Blood Count 8.1 x10^3/uL (4.0-11.0) 7.7 x10^3/uL (4.0-11.0) Red Blood Count 4.07 x10^6/uL (4.30-5.70) 4.11 x10^6/uL (4.30-5.70) Hemoglobin 12.0 g/dL (13.0-17.5) 12.4 g/dL (13.0-17.5) Hematocrit 34.5 % (39.0-53.0) 35.3 % (39.0-53.0) Mean Corpuscular Volume 85 fL (79-100) 86 fL (79-100) Mean Corpuscular Hemoglobin 29 pg (25-35) 30 pg (25-35) Mean Corpuscular Hemoglobin Concent 35 g/dL (31-37) 35 g/dL (31-37) Red Cell Distribution Width 13.4 % (11.5-14.5) 13.4 % (11.5-14.5) Platelet Count 249 x10^3/uL (140-400) 312 x10^3/uL (140-400) Neutrophils (%) (Auto) 76 % (31-73) 75 % (31-73) Lymphocytes (%) (Auto) 12 % (24-48) 12 % (24-48) Monocytes (%) (Auto) 12 % (0-9) 11 % (0-9) Eosinophils (%) (Auto) 0 % (0-3) 1 % (0-3) Basophils (%) (Auto) 0 % (0-3) 1 % (0-3) Neutrophils # (Auto) 6.1 x10^3/uL (1.8-7.7) 5.8 x10^3/uL (1.8-7.7) Lymphocytes # (Auto) 0.9 x10^3/uL (1.0-4.8) 0.9 x10^3/uL (1.0-4.8) Monocytes # (Auto) 1.0 x10^3/uL (0.0-1.1) 0.9 x10^3/uL (0.0-1.1) Eosinophils # (Auto) 0.0 x10^3/uL (0.0-0.7) 0.1 x10^3/uL (0.0-0.7) Basophils # (Auto) 0.0 x10^3/uL (0.0-0.2) 0.1 x10^3/uL (0.0-0.2) Prothrombin Time 14.9 SEC (11.7-14.0) 15.0 SEC (11.7-14.0) Prothromb Time International Ratio 1.2 (0.8-1.1) 1.2 (0.8-1.1) Hemoglobin A1c 6.2 % (4.8-5.6) Magnesium Level 2.0 mg/dL (1.8-2.4) 2.1 mg/dL (1.8-2.4) Triglycerides Level 54 mg/dL (0-150) Cholesterol Level 100 mg/dL (0-200) LDL Cholesterol, Calculated 71 mg/dL (0-100) VLDL Cholesterol, Calculated 11 mg/dL (0-40) Non-HDL Cholesterol Calculated 82 mg/dL (0-129) HDL Cholesterol 18 mg/dL (40-60) Cholesterol/HDL Ratio 5.6 Total Bilirubin 0.4 mg/dL (0.2-1.0) Direct Bilirubin 0.2 mg/dL (0.0-0.2) Aspartate Amino Transf (AST/SGOT) 30 U/L (15-37) Alanine Aminotransferase (ALT/SGPT) 61 U/L (16-63) Alkaline Phosphatase 69 U/L (46-116) Lactate Dehydrogenase 258 U/L (85-227) C-Reactive Protein, Quantitative 45.3 mg/L (0-3.3) Total Protein 6.9 g/dL (6.4-8.2) Albumin 2.3 g/dL (3.4-5.0) O2 Saturation 94 % (92-99) Arterial Blood pH 7.50 (7.35-7.45) Arterial Blood pCO2 at Patient Temp 35 mmHg (35-46) Arterial Blood pO2 at Patient Temp 67 mmHg (65-108) Arterial Blood HCO3 26 mmol/L (21-28) Arterial Blood Base Excess 3 mmol/L (-3-3) FiO2 40 Laboratory Tests Test 09/17/19 07:45 09/17/19 11:10 White Blood Count 7.7 x10^3/uL (4.0-11.0) Red Blood Count 4.11 x10^6/uL (4.30-5.70) Hemoglobin 12.4 g/dL (13.0-17.5) Hematocrit 35.3 % (39.0-53.0) Mean Corpuscular Volume 86 fL (79-100) Mean Corpuscular Hemoglobin 30 pg (25-35) Mean Corpuscular Hemoglobin Concent 35 g/dL (31-37) Red Cell Distribution Width 13.4 % (11.5-14.5) Platelet Count 312 x10^3/uL (140-400) Neutrophils (%) (Auto) 75 % (31-73) Lymphocytes (%) (Auto) 12 % (24-48) Monocytes (%) (Auto) 11 % (0-9) Eosinophils (%) (Auto) 1 % (0-3) Basophils (%) (Auto) 1 % (0-3) Neutrophils # (Auto) 5.8 x10^3/uL (1.8-7.7) Lymphocytes # (Auto) 0.9 x10^3/uL (1.0-4.8) Monocytes # (Auto) 0.9 x10^3/uL (0.0-1.1) Eosinophils # (Auto) 0.1 x10^3/uL (0.0-0.7) Basophils # (Auto) 0.1 x10^3/uL (0.0-0.2) Prothrombin Time 15.0 SEC (11.7-14.0) Prothromb Time International Ratio 1.2 (0.8-1.1) Sodium Level 132 mmol/L (136-145) Potassium Level 3.6 mmol/L (3.5-5.1) Chloride Level 96 mmol/L (98-107) Carbon Dioxide Level 31 mmol/L (21-32) Anion Gap 5 (6-14) Blood Urea Nitrogen 8 mg/dL (8-26) Creatinine 0.8 mg/dL (0.7-1.3) Estimated GFR (Cockcroft-Gault) 96.1 Glucose Level 117 mg/dL (70-99) Calcium Level 7.9 mg/dL (8.5-10.1) Magnesium Level 2.1 mg/dL (1.8-2.4) Total Bilirubin 0.4 mg/dL (0.2-1.0) Direct Bilirubin 0.2 mg/dL (0.0-0.2) Aspartate Amino Transf (AST/SGOT) 30 U/L (15-37) Alanine Aminotransferase (ALT/SGPT) 61 U/L (16-63) Alkaline Phosphatase 69 U/L (46-116) Lactate Dehydrogenase 258 U/L (85-227) C-Reactive Protein, Quantitative 45.3 mg/L (0-3.3) Total Protein 6.9 g/dL (6.4-8.2) Albumin 2.3 g/dL (3.4-5.0) O2 Saturation 94 % (92-99) Arterial Blood pH 7.50 (7.35-7.45) Arterial Blood pCO2 at Patient Temp 35 mmHg (35-46) Arterial Blood pO2 at Patient Temp 67 mmHg (65-108) Arterial Blood HCO3 26 mmol/L (21-28) Arterial Blood Base Excess 3 mmol/L (-3-3) FiO2 40 Medications Active Scripts Medications Dose Route/Sig Max Daily Dose Days Date Category Carvedilol 25 Mg Tablet 6.25 Mg PO BIDWMEALS 09/15/19 Reported Flomax (Tamsulosin Hcl) 0.4 Mg Cap.er.24h 1 Cap PO DAILY 09/15/19 Reported Lisinopril 10 Mg Tablet 1 Tab PO DAILY 09/15/19 Reported Impression . 1. Acute hypoxic respiratory failure secondary to COVID-[address] chest with bilateral ground glass infiltrates and some pleural thickening. No evidence of any pulmonary embolism. Findings are consistent with COVID-19 pneumonia. 3. COVID-19 positive. 4. Underlying chronic obstructive pulmonary disease. 5. History of tuberculosis, treated in the 80s for 1 year. 6. 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 Plan . 1. Continue present oxygen at 5 liters; keep saturation 92% and above. 2. consider adding steroids 3. Continue antibiotics, azithromycin. 4. s/p convalescent plasma. 5. Lovenox for deep vein thrombosis prophylaxis. 6. Infectious Disease rec 7. We will follow along with you. Discussed with RN and Respiratory Therapy. CARLINE ELIZONDO MD Sep 17, 2019 11:33
--- NOTE | 2019-09-17 13:05 | PDOC ---
CARDIO Progress Notes Date and Time Date of Service 09/17/2019 Time of Evaluation 1110 Subjective Subjective: No Chest Pain, No shortness of breath, Other (taliing on the phone) Vitals Vitals Vital Signs Date Time Temp Pulse Resp B/P (MAP) Pulse Ox O2 Delivery O2 Flow Rate FiO2 09/17/19 11:10 Nasal Cannula 5.0 09/17/19 09:29 99 114/79 09/17/19 06:00 100 09/17/19 03:00 98.7 27 98.7 Weight Weight [ ] Input and Output Intake and Output Intake and Output 09/17/19 07:00 Intake Total 4190 ml Output Total 600 ml Balance 3590 ml Intake Oral 3890 ml Blood Product IV Normal Saline Flush 300 ml Output Urine Total 600 ml # Voids 12 # Bowel Movements 1 Laboratory Labs Laboratory Tests Test 09/17/19 07:45 09/17/19 11:10 White Blood Count 7.7 x10^3/uL (4.0-11.0) Red Blood Count 4.11 x10^6/uL (4.30-5.70) Hemoglobin 12.4 g/dL (13.0-17.5) Hematocrit 35.3 % (39.0-53.0) Mean Corpuscular Volume 86 fL (79-100) Mean Corpuscular Hemoglobin 30 pg (25-35) Mean Corpuscular Hemoglobin Concent 35 g/dL (31-37) Red Cell Distribution Width 13.4 % (11.5-14.5) Platelet Count 312 x10^3/uL (140-400) Neutrophils (%) (Auto) 75 % (31-73) Lymphocytes (%) (Auto) 12 % (24-48) Monocytes (%) (Auto) 11 % (0-9) Eosinophils (%) (Auto) 1 % (0-3) Basophils (%) (Auto) 1 % (0-3) Neutrophils # (Auto) 5.8 x10^3/uL (1.8-7.7) Lymphocytes # (Auto) 0.9 x10^3/uL (1.0-4.8) Monocytes # (Auto) 0.9 x10^3/uL (0.0-1.1) Eosinophils # (Auto) 0.1 x10^3/uL (0.0-0.7) Basophils # (Auto) 0.1 x10^3/uL (0.0-0.2) Prothrombin Time 15.0 SEC (11.7-14.0) Prothromb Time International Ratio 1.2 (0.8-1.1) Sodium Level 132 mmol/L (136-145) Potassium Level 3.6 mmol/L (3.5-5.1) Chloride Level 96 mmol/L (98-107) Carbon Dioxide Level 31 mmol/L (21-32) Anion Gap 5 (6-14) Blood Urea Nitrogen 8 mg/dL (8-26) Creatinine 0.8 mg/dL (0.7-1.3) Estimated GFR (Cockcroft-Gault) 96.1 Glucose Level 117 mg/dL (70-99) Calcium Level 7.9 mg/dL (8.5-10.1) Magnesium Level 2.1 mg/dL (1.8-2.4) Total Bilirubin 0.4 mg/dL (0.2-1.0) Direct Bilirubin 0.2 mg/dL (0.0-0.2) Aspartate Amino Transf (AST/SGOT) 30 U/L (15-37) Alanine Aminotransferase (ALT/SGPT) 61 U/L (16-63) Alkaline Phosphatase 69 U/L (46-116) Lactate Dehydrogenase 258 U/L (85-227) C-Reactive Protein, Quantitative 45.3 mg/L (0-3.3) Total Protein 6.9 g/dL (6.4-8.2) Albumin 2.3 g/dL (3.4-5.0) O2 Saturation 94 % (92-99) Arterial Blood pH 7.50 (7.35-7.45) Arterial Blood pCO2 at Patient Temp 35 mmHg (35-46) Arterial Blood pO2 at Patient Temp 67 mmHg (65-108) Arterial Blood HCO3 26 mmol/L (21-28) Arterial Blood Base Excess 3 mmol/L (-3-3) FiO2 40 Microbiology Micro Microbiology 09/15/19 Blood Culture - Preliminary, Resulted NO GROWTH AFTER 2 DAYS Physical Exam Chest: Symmetric Heart: irregularly irregular (AFIB rate controlled) Abdomen: Other (obese) Extremities: No Calf Tenderness Neurology: alert, oriented, follow commands Other Exams visual evaluation for PPE conservation. Discussed with RN and pt stable and in acute distress overnight and in no discomfort Assessment Assessment 1. Acute respiratory failure secondary to COVID PNA: SOA better 2. AFIB in the stting of covid PNA: reportedly diagnosed in half-way, no prior cardiac workup. Rate controlled 3. Hypertension; controlled 4. Hyponatremia: improved 5. Metabolic syndrome: A1C 6.2 6. H/o hepatitis C 7. Hypokalemia: resolved Recommendations 1. TTE as an outpt once fully recovered from covid 2. Continue lopressor, Eliquis for stroke prevention. Will check with CM as pt is post release from correctional facility and note any transitional health insurance coverage otherwise pt would not be able to afford eliquis moving forward. It this is the case then will need coumadin instead and outpt referral to [facility] 3. Encouraged to follow up in office. SS consult Justicifation of Admission Dx: Justifications for Admission: Justification of Admission Dx: Yes Respiratory Failure: Severe Resp Distress Aspiration Pneumonia: Chronic Lung Disease SHANDA ZACARIAS DEVELOPER PROGRAMMER ANALYST Sep 17, 2019 13:05
[2019-09-17] MEDS: methylPREDNISolone SOD SUCC PF 40 MG/ML VIAL. IV SCH ×2 (14:03→22:42)
[2019-09-17] MEDS ORDERED: DEXTROSE 50% 25 GM / 50ML DISP.SYRIN. IV PRN (19:00)
[2019-09-17] MEDS ORDERED: IV DEXTROSE 5% 250 ML BAG. IV PRN (19:00)
[2019-09-17] MEDS: LISINOPRIL 10 MG TABLET PO SCH (21:00)
[2019-09-17] MEDS: TAMSULOSIN 0.4 MG CAP.ER.24H. PO SCH (22:43)
[2019-09-17] MEDS: cefTRIAXone IV Push 1 GM VIAL. IVP SCH (22:43)
[2019-09-18] VITALS (7 sets, daily range): BP systolic 111–162; BP diastolic 62–105
--- NOTE | 2019-09-18 01:44 | CONS ---
DATE OF CONSULTATION: 09/17/2019 PATIENT'S ROOM: ICU 11. REQUESTING PHYSICIAN: Dl Polk MD REASON FOR CONSULTATION: COVID positive. HISTORY OF PRESENT ILLNESS: The patient is a 69-year-old gentleman with past medical history of hypertension, history of hepatitis C that has been treated as well as a distant history of tuberculosis that was treated. He was apparently in his normal state of health prior to his day of admission. He was living in a long-term house, sleeping on the couch, but awakened like 4:00 in the morning, had difficulty catching his breath. Denies any sick contacts or recent travel. No cough or sputum production, but he is a smoker. He had no fevers or chills. No gross chest pain. He presented to [facility] on the 14 in the evening and had a white count of 10.9. He was afebrile. Chest x-ray was performed, showed patchy bilateral airspace disease, favored to be infectious in etiology. CT scan of his chest was performed, negative for pulmonary embolism, but he had peripheral bilateral ground glass infiltrates that were nonspecific. He was given doses of Rocephin and checked for COVID. His COVID returned positive and he has had azithromycin added and received plasma on 09/15. Currently, the patient is sitting up in a chair, states he is feeling some better. PAST MEDICAL HISTORY: Positive for hypertension; history of hepatitis C, has been treated; history of tuberculosis, has been treated; history of urinary retention; history of COPD and obesity. Distant history of heroin use. PAST SURGICAL HISTORY: Positive for wrist surgery. REVIEW OF SYSTEMS: Otherwise negative except for what is mentioned above. ALLERGIES: No known drug allergies. SOCIAL HISTORY: He has a history of smoking, denies any alcohol, does have a history of distant heroin use, currently no drugs. Lives in a long-term house with a roommate. Actually, he quit smoking, he does have history of 35 years. FAMILY HISTORY: Noncontributory. CURRENT MEDICATIONS: Tylenol, Eliquis, azithromycin, ceftriaxone, lactobacillus, Prinivil, Ativan, metoprolol, Flomax. PHYSICAL EXAMINATION: VITAL SIGNS: T-max has been 100.1 last evening, currently is 97, pulse 94, respirations 27, blood pressure 125/84. He is on a nonrebreather. Pulse ox 100%, flow rate 6. CONSTITUTIONAL: He is sitting upright in a chair. He is in no acute distress. HEENT: Pupils are equal and reactive with normal conjunctivae. Oral cavity, pharynx has some dentures, but also some mild thrush. NECK: Supple, without JVD. LUNGS: Had some mild crackles. HEART: S1, S2. ABDOMEN: Obese, soft, nontender, no guarding or rebound. EXTREMITIES: Without clubbing, cyanosis. He had 1+ lower extremity edema. SKIN: Warm without signs of rash. He has had multiple tattoos. NEUROLOGIC: Nonfocal, answers questions appropriately. PSYCHIATRIC: Affect is somewhat flat. LABORATORY DATA: White count 8.1, hemoglobin 12, platelets of 249, neutrophils 76, lymphs are 12. Creatinine 0.8, glucose of 123, had normal troponin when he came in. Has LFTs, AST was 67, ALT 83 on arrival. Blood cultures negative. RADIOLOGY: Reviewed in history of present illness. IMPRESSION: 1. COVID positive on the , status post plasma on the . 2. Fever, questionable related to plasma, was x 1. 3. Acute hypoxic respiratory failure. 4. Mild thrush. 5. Atrial fibrillation. 6. History of hepatitis C that was treated. 7. History of tuberculosis that was treated. RECOMMENDATIONS: Azithromycin was started as well as Rocephin on the . We will add a CRP and LDH. Repeat his troponin, LFTs today. Follow up labs and cultures. May need remdesivir. We will follow up LFTs and O2 sat, appears to be improving. This was discussed with nursing. Thank you for allowing me to participate in the patient's care. Should you have any questions, please do not hesitate to contact me. ALVARADO TERRAZAS MD DR: [place]/kely JOB#: [id number] / [id number]
[2019-09-18 04:09] LABS: BASO % 0 % (0-3); EOS % 0 % (0-3); HEMATOCRIT 37.1 % (39.0-53.0); HEMOGLOBIN 12.9 g/dL (13.0-17.5); LYMPH # 0.6 x10^3/uL (1.0-4.8); LYMPH % 7 % (24-48); MEAN CORPUSCULAR HEMOGLOBIN 30 pg (25-35); MEAN CORPUSCULAR HGB CONC 35 g/dL (31-37); MEAN CORPUSCULAR VOLUME 86 fL (79-100); MONO # 0.2 x10^3/uL (0.0-1.1); MONO % 2 % (0-9); NEUT # 7.9 x10^3/uL (1.8-7.7); NEUT % 90 % (31-73); PLATELET COUNT 380 x10^3/uL (140-400); RED BLOOD COUNT 4.31 x10^6/uL (4.30-5.70); RED CELL DISTRIBUTION WIDTH 13.3 % (11.5-14.5); WHITE BLOOD COUNT 8.7 x10^3/uL (4.0-11.0)
[2019-09-18 05:12] LABS: ALBUMIN 2.4 g/dL (3.4-5.0); ALBUMIN/GLOBULIN RATIO 0.5 (1.0-1.7); CALCIUM 8.6 mg/dL (8.5-10.1); CREATININE 0.8 mg/dL (0.7-1.3); GFR 96.1; POTASSIUM 3.9 mmol/L (3.5-5.1); TOTAL BILIRUBIN 0.3 mg/dL (0.2-1.0); TOTAL PROTEIN 7.4 g/dL (6.4-8.2)
[2019-09-18 06:06] LABS: % BANDS 4 % (0-9); % LYMPHS 7 % (24-48); % MONOS 1 % (0-10); % SEGS 88 % (35-66); PLT ESTIMATE ADEQUATE (ADEQUATE)
--- NOTE | 2019-09-18 07:31 | PDOC ---
Infectious Disease Note Subjective Subjective Feeing well. No F/C/s/N/V/D/SOA Min cough. Mouth better ROS ROS o/w neg Vital Sign Vital Signs Vital Signs Date Time Temp Pulse Resp B/P (MAP) Pulse Ox O2 Delivery O2 Flow Rate FiO2 09/18/19 04:00 97.8 86 27 140/101 (114) 92 Nasal Cannula 5.0 97.8 Physical Exam PHYSICAL EXAM CONSTITUTIONAL: He is moving about the room He is in no acute distress.Looks well HEENT: Pupils are equal and reactive with normal conjunctivae. Oral cavity, pharynx has some dentures, improved thrush. NECK: Supple, without JVD. LUNGS: Had some mild crackles. HEART: S1, S2. ABDOMEN: Obese, soft, nontender, no guarding or rebound. EXTREMITIES: Without clubbing, cyanosis. He had 1+ lower extremity edema. SKIN: Warm without signs of rash. He has had multiple tattoos. NEUROLOGIC: Nonfocal, answers questions appropriately. PSYCHIATRIC: Affect is appropriate Labs Lab Laboratory Tests Test 09/17/19 07:45 09/17/19 11:10 09/17/19 23:06 09/18/19 03:15 White Blood Count 7.7 x10^3/uL (4.0-11.0) 8.7 x10^3/uL (4.0-11.0) Red Blood Count 4.11 x10^6/uL (4.30-5.70) 4.31 x10^6/uL (4.30-5.70) Hemoglobin 12.4 g/dL (13.0-17.5) 12.9 g/dL (13.0-17.5) Hematocrit 35.3 % (39.0-53.0) 37.1 % (39.0-53.0) Mean Corpuscular Volume 86 fL (79-100) 86 fL (79-100) Mean Corpuscular Hemoglobin 30 pg (25-35) 30 pg (25-35) Mean Corpuscular Hemoglobin Concent 35 g/dL (31-37) 35 g/dL (31-37) Red Cell Distribution Width 13.4 % (11.5-14.5) 13.3 % (11.5-14.5) Platelet Count 312 x10^3/uL (140-400) 380 x10^3/uL (140-400) Neutrophils (%) (Auto) 75 % (31-73) 90 % (31-73) Lymphocytes (%) (Auto) 12 % (24-48) 7 % (24-48) Monocytes (%) (Auto) 11 % (0-9) 2 % (0-9) Eosinophils (%) (Auto) 1 % (0-3) 0 % (0-3) Basophils (%) (Auto) 1 % (0-3) 0 % (0-3) Neutrophils # (Auto) 5.8 x10^3/uL (1.8-7.7) 7.9 x10^3/uL (1.8-7.7) Lymphocytes # (Auto) 0.9 x10^3/uL (1.0-4.8) 0.6 x10^3/uL (1.0-4.8) Monocytes # (Auto) 0.9 x10^3/uL (0.0-1.1) 0.2 x10^3/uL (0.0-1.1) Eosinophils # (Auto) 0.1 x10^3/uL (0.0-0.7) 0.0 x10^3/uL (0.0-0.7) Basophils # (Auto) 0.1 x10^3/uL (0.0-0.2) 0.0 x10^3/uL (0.0-0.2) Prothrombin Time 15.0 SEC (11.7-14.0) Prothromb Time International Ratio 1.2 (0.8-1.1) Sodium Level 132 mmol/L (136-145) 133 mmol/L (136-145) Potassium Level 3.6 mmol/L (3.5-5.1) 3.9 mmol/L (3.5-5.1) Chloride Level 96 mmol/L (98-107) 97 mmol/L (98-107) Carbon Dioxide Level 31 mmol/L (21-32) 31 mmol/L (21-32) Anion Gap 5 (6-14) 5 (6-14) Blood Urea Nitrogen 8 mg/dL (8-26) 10 mg/dL (8-26) Creatinine 0.8 mg/dL (0.7-1.3) 0.8 mg/dL (0.7-1.3) Estimated GFR (Cockcroft-Gault) 96.1 96.1 Glucose Level 117 mg/dL (70-99) 155 mg/dL (70-99) Calcium Level 7.9 mg/dL (8.5-10.1) 8.6 mg/dL (8.5-10.1) Magnesium Level 2.1 mg/dL (1.8-2.4) Total Bilirubin 0.4 mg/dL (0.2-1.0) 0.3 mg/dL (0.2-1.0) Direct Bilirubin 0.2 mg/dL (0.0-0.2) Aspartate Amino Transf (AST/SGOT) 30 U/L (15-37) 27 U/L (15-37) Alanine Aminotransferase (ALT/SGPT) 61 U/L (16-63) 66 U/L (16-63) Alkaline Phosphatase 69 U/L (46-116) 70 U/L (46-116) Lactate Dehydrogenase 258 U/L (85-227) C-Reactive Protein, Quantitative 45.3 mg/L (0-3.3) Total Protein 6.9 g/dL (6.4-8.2) 7.4 g/dL (6.4-8.2) Albumin 2.3 g/dL (3.4-5.0) 2.4 g/dL (3.4-5.0) O2 Saturation 94 % (92-99) Arterial Blood pH 7.50 (7.35-7.45) Arterial Blood pCO2 at Patient Temp 35 mmHg (35-46) Arterial Blood pO2 at Patient Temp 67 mmHg (65-108) Arterial Blood HCO3 26 mmol/L (21-28) Arterial Blood Base Excess 3 mmol/L (-3-3) FiO2 40 Glucose (Fingerstick) 154 mg/dL (70-99) Segmented Neutrophils % 88 % (35-66) Band Neutrophils % 4 % (0-9) Lymphocytes % 7 % (24-48) Monocytes % 1 % (0-10) Platelet Estimate Adequate (ADEQUATE) BUN/Creatinine Ratio 13 (6-20) Albumin/Globulin Ratio 0.5 (1.0-1.7) Test 09/18/19 07:26 Glucose (Fingerstick) 173 mg/dL (70-99) Micro Microbiology 09/15/19 Blood Culture - Preliminary, Resulted NO GROWTH AFTER 2 DAYS Objective Assessment COVID + 09/13 s/p Plasma 09/15 Fever ? Plasma - better - Blood cults neg Acute Hypoxic resp failure - better Mild thrush Afib H/o Hep C - treated H/o TB - treated Plan Plan of Care Azithromycin and Rocephin 09/14 wean soon F/u labs and cults May need Remdesivir if worsens D/w nursing ALVARADO TERRAZAS MD Sep 18, 2019 07:31
[2019-09-18] MEDS: AZITHROMYCIN 250 MG TABLET. PO SCH (08:11)
[2019-09-18] MEDS: METOPROLOL TART IMMED RELEASE 50 MG TABLET. PO SCH ×2 (08:11→22:11)
[2019-09-18] MEDS: LACTOBACILLUS RHAMNOSUS GG 1 CAPSULE. PO SCH ×2 (08:11→22:11)
[2019-09-18] MEDS: APIXABAN 5 MG TABLET. PO SCH ×2 (08:11→22:11)
[2019-09-18] MEDS: methylPREDNISolone SOD SUCC PF 40 MG/ML VIAL. IV SCH ×3 (08:11→22:12)
[2019-09-18] MEDS: NYSTATIN 100,000 UNITS/ML 5 ML ORAL.SUSP. SWSW SCH ×4 (08:12→22:11)
--- NOTE | 2019-09-18 09:05 | PDOC ---
PROGRESS NOTES Chief Complaint Chief Complaint IMPRESSION Covid 19 infection Paroxysmal atrial fibrillation Acute COPD exacerbation Atypical pneumonia Hyponatremia secondary to low effective circulatory volume Contraction alkalosis Transaminitis History of hepatitis C History of TB treated as reported by the patient, he carries a card from the correctional department in his wallet, no fever no weight loss no lymphadenopathy noted in [facility] for 25 some years. history of tuberculosis in the late 80s and was treated for 1 year. 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 Plan ICU BED Consult pulmonology Consult cardiology Continue current management Supportive measures Monitor oximetry closely Isolation precaution adding steroids IV SOLUMEDROL 60 MG Q 8 HRS Continue antibiotics, azithromycin. s/p convalescent plasma. 36 MIN CC TIME History of Present Illness History of Present Illness No acute events reported overnight, case discussed with nursing staff patient in no acute distress no complaints during my visit, patient asymptomatic, he was quite concerned given the diagnosis of COVID-19, reassurance has been provided, plan of care explained in detail Vitals Vitals Vital Signs Date Time Temp Pulse Resp B/P (MAP) Pulse Ox O2 Delivery O2 Flow Rate FiO2 09/18/19 08:11 105 145/105 09/18/19 08:00 Nasal Cannula 5.0 09/18/19 07:00 97.8 16 96 97.8 Physical Exam Physical Exam CONSTITUTIONAL: He is moving about the room He is in no acute distress.Looks well HEENT: Pupils are equal and reactive with normal conjunctivae. Oral cavity, pharynx has some dentures, improved thrush. NECK: Supple, without JVD. LUNGS: Had some mild crackles. HEART: S1, S2. ABDOMEN: Obese, soft, nontender, no guarding or rebound. EXTREMITIES: Without clubbing, cyanosis. He had 1+ lower extremity edema. SKIN: Warm without signs of rash. He has had multiple tattoos. NEUROLOGIC: Nonfocal, answers questions appropriately. PSYCHIATRIC: Affect is appropriate General: Alert, Oriented X3, Cooperative, No acute distress Heart: Other (AFIB, rate controlled) Abdomen: Soft, No tenderness, Other (obese ) Extremities: Other (1+ bilateral LE edema ) Skin: No significant lesion Labs LABS Laboratory Tests Test 09/17/19 11:10 09/17/19 23:06 09/18/19 03:15 09/18/19 07:26 O2 Saturation 94 % (92-99) Arterial Blood pH 7.50 (7.35-7.45) Arterial Blood pCO2 at Patient Temp 35 mmHg (35-46) Arterial Blood pO2 at Patient Temp 67 mmHg (65-108) Arterial Blood HCO3 26 mmol/L (21-28) Arterial Blood Base Excess 3 mmol/L (-3-3) FiO2 40 Glucose (Fingerstick) 154 mg/dL (70-99) 173 mg/dL (70-99) White Blood Count 8.7 x10^3/uL (4.0-11.0) Red Blood Count 4.31 x10^6/uL (4.30-5.70) Hemoglobin 12.9 g/dL (13.0-17.5) Hematocrit 37.1 % (39.0-53.0) Mean Corpuscular Volume 86 fL (79-100) Mean Corpuscular Hemoglobin 30 pg (25-35) Mean Corpuscular Hemoglobin Concent 35 g/dL (31-37) Red Cell Distribution Width 13.3 % (11.5-14.5) Platelet Count 380 x10^3/uL (140-400) Neutrophils (%) (Auto) 90 % (31-73) Lymphocytes (%) (Auto) 7 % (24-48) Monocytes (%) (Auto) 2 % (0-9) Eosinophils (%) (Auto) 0 % (0-3) Basophils (%) (Auto) 0 % (0-3) Neutrophils # (Auto) 7.9 x10^3/uL (1.8-7.7) Lymphocytes # (Auto) 0.6 x10^3/uL (1.0-4.8) Monocytes # (Auto) 0.2 x10^3/uL (0.0-1.1) Eosinophils # (Auto) 0.0 x10^3/uL (0.0-0.7) Basophils # (Auto) 0.0 x10^3/uL (0.0-0.2) Segmented Neutrophils % 88 % (35-66) Band Neutrophils % 4 % (0-9) Lymphocytes % 7 % (24-48) Monocytes % 1 % (0-10) Platelet Estimate Adequate (ADEQUATE) Sodium Level 133 mmol/L (136-145) Potassium Level 3.9 mmol/L (3.5-5.1) Chloride Level 97 mmol/L (98-107) Carbon Dioxide Level 31 mmol/L (21-32) Anion Gap 5 (6-14) Blood Urea Nitrogen 10 mg/dL (8-26) Creatinine 0.8 mg/dL (0.7-1.3) Estimated GFR (Cockcroft-Gault) 96.1 BUN/Creatinine Ratio 13 (6-20) Glucose Level 155 mg/dL (70-99) Calcium Level 8.6 mg/dL (8.5-10.1) Total Bilirubin 0.3 mg/dL (0.2-1.0) Aspartate Amino Transf (AST/SGOT) 27 U/L (15-37) Alanine Aminotransferase (ALT/SGPT) 66 U/L (16-63) Alkaline Phosphatase 70 U/L (46-116) Total Protein 7.4 g/dL (6.4-8.2) Albumin 2.4 g/dL (3.4-5.0) Albumin/Globulin Ratio 0.5 (1.0-1.7) Assessment and Plan Assessmemt and Plan Problems Medical Problems: (1) Hypoxemia Status: Acute (2) Person under investigation for COVID-19 Status: Acute (3) Pneumonia Status: Acute Comment Review of Relevant I have reviewed the following items syed (where applicable) has been applied. Labs Laboratory Tests Test 09/16/19 23:35 09/17/19 07:45 09/17/19 11:10 09/17/19 23:06 Urine Sodium 18 mmol/L (Not Estab.) Urine Potassium 10.0 mmol/L (Not Estab.) Urine Chloride 13 mmol/L (Not Estab.) White Blood Count 7.7 x10^3/uL (4.0-11.0) Red Blood Count 4.11 x10^6/uL (4.30-5.70) Hemoglobin 12.4 g/dL (13.0-17.5) Hematocrit 35.3 % (39.0-53.0) Mean Corpuscular Volume 86 fL (79-100) Mean Corpuscular Hemoglobin 30 pg (25-35) Mean Corpuscular Hemoglobin Concent 35 g/dL (31-37) Red Cell Distribution Width 13.4 % (11.5-14.5) Platelet Count 312 x10^3/uL (140-400) Neutrophils (%) (Auto) 75 % (31-73) Lymphocytes (%) (Auto) 12 % (24-48) Monocytes (%) (Auto) 11 % (0-9) Eosinophils (%) (Auto) 1 % (0-3) Basophils (%) (Auto) 1 % (0-3) Neutrophils # (Auto) 5.8 x10^3/uL (1.8-7.7) Lymphocytes # (Auto) 0.9 x10^3/uL (1.0-4.8) Monocytes # (Auto) 0.9 x10^3/uL (0.0-1.1) Eosinophils # (Auto) 0.1 x10^3/uL (0.0-0.7) Basophils # (Auto) 0.1 x10^3/uL (0.0-0.2) Prothrombin Time 15.0 SEC (11.7-14.0) Prothromb Time International Ratio 1.2 (0.8-1.1) Sodium Level 132 mmol/L (136-145) Potassium Level 3.6 mmol/L (3.5-5.1) Chloride Level 96 mmol/L (98-107) Carbon Dioxide Level 31 mmol/L (21-32) Anion Gap 5 (6-14) Blood Urea Nitrogen 8 mg/dL (8-26) Creatinine 0.8 mg/dL (0.7-1.3) Estimated GFR (Cockcroft-Gault) 96.1 Glucose Level 117 mg/dL (70-99) Calcium Level 7.9 mg/dL (8.5-10.1) Magnesium Level 2.1 mg/dL (1.8-2.4) Total Bilirubin 0.4 mg/dL (0.2-1.0) Direct Bilirubin 0.2 mg/dL (0.0-0.2) Aspartate Amino Transf (AST/SGOT) 30 U/L (15-37) Alanine Aminotransferase (ALT/SGPT) 61 U/L (16-63) Alkaline Phosphatase 69 U/L (46-116) Lactate Dehydrogenase 258 U/L (85-227) C-Reactive Protein, Quantitative 45.3 mg/L (0-3.3) Total Protein 6.9 g/dL (6.4-8.2) Albumin 2.3 g/dL (3.4-5.0) O2 Saturation 94 % (92-99) Arterial Blood pH 7.50 (7.35-7.45) Arterial Blood pCO2 at Patient Temp 35 mmHg (35-46) Arterial Blood pO2 at Patient Temp 67 mmHg (65-108) Arterial Blood HCO3 26 mmol/L (21-28) Arterial Blood Base Excess 3 mmol/L (-3-3) FiO2 40 Glucose (Fingerstick) 154 mg/dL (70-99) Test 09/18/19 03:15 09/18/19 07:26 White Blood Count 8.7 x10^3/uL (4.0-11.0) Red Blood Count 4.31 x10^6/uL (4.30-5.70) Hemoglobin 12.9 g/dL (13.0-17.5) Hematocrit 37.1 % (39.0-53.0) Mean Corpuscular Volume 86 fL (79-100) Mean Corpuscular Hemoglobin 30 pg (25-35) Mean Corpuscular Hemoglobin Concent 35 g/dL (31-37) Red Cell Distribution Width 13.3 % (11.5-14.5) Platelet Count 380 x10^3/uL (140-400) Neutrophils (%) (Auto) 90 % (31-73) Lymphocytes (%) (Auto) 7 % (24-48) Monocytes (%) (Auto) 2 % (0-9) Eosinophils (%) (Auto) 0 % (0-3) Basophils (%) (Auto) 0 % (0-3) Neutrophils # (Auto) 7.9 x10^3/uL (1.8-7.7) Lymphocytes # (Auto) 0.6 x10^3/uL (1.0-4.8) Monocytes # (Auto) 0.2 x10^3/uL (0.0-1.1) Eosinophils # (Auto) 0.0 x10^3/uL (0.0-0.7) Basophils # (Auto) 0.0 x10^3/uL (0.0-0.2) Segmented Neutrophils % 88 % (35-66) Band Neutrophils % 4 % (0-9) Lymphocytes % 7 % (24-48) Monocytes % 1 % (0-10) Platelet Estimate Adequate (ADEQUATE) Sodium Level 133 mmol/L (136-145) Potassium Level 3.9 mmol/L (3.5-5.1) Chloride Level 97 mmol/L (98-107) Carbon Dioxide Level 31 mmol/L (21-32) Anion Gap 5 (6-14) Blood Urea Nitrogen 10 mg/dL (8-26) Creatinine 0.8 mg/dL (0.7-1.3) Estimated GFR (Cockcroft-Gault) 96.1 BUN/Creatinine Ratio 13 (6-20) Glucose Level 155 mg/dL (70-99) Calcium Level 8.6 mg/dL (8.5-10.1) Total Bilirubin 0.3 mg/dL (0.2-1.0) Aspartate Amino Transf (AST/SGOT) 27 U/L (15-37) Alanine Aminotransferase (ALT/SGPT) 66 U/L (16-63) Alkaline Phosphatase 70 U/L (46-116) Total Protein 7.4 g/dL (6.4-8.2) Albumin 2.4 g/dL (3.4-5.0) Albumin/Globulin Ratio 0.5 (1.0-1.7) Glucose (Fingerstick) 173 mg/dL (70-99) Laboratory Tests Test 09/17/19 11:10 09/17/19 23:06 09/18/19 03:15 09/18/19 07:26 O2 Saturation 94 % (92-99) Arterial Blood pH 7.50 (7.35-7.45) Arterial Blood pCO2 at Patient Temp 35 mmHg (35-46) Arterial Blood pO2 at Patient Temp 67 mmHg (65-108) Arterial Blood HCO3 26 mmol/L (21-28) Arterial Blood Base Excess 3 mmol/L (-3-3) FiO2 40 Glucose (Fingerstick) 154 mg/dL (70-99) 173 mg/dL (70-99) White Blood Count 8.7 x10^3/uL (4.0-11.0) Red Blood Count 4.31 x10^6/uL (4.30-5.70) Hemoglobin 12.9 g/dL (13.0-17.5) Hematocrit 37.1 % (39.0-53.0) Mean Corpuscular Volume 86 fL (79-100) Mean Corpuscular Hemoglobin 30 pg (25-35) Mean Corpuscular Hemoglobin Concent 35 g/dL (31-37) Red Cell Distribution Width 13.3 % (11.5-14.5) Platelet Count 380 x10^3/uL (140-400) Neutrophils (%) (Auto) 90 % (31-73) Lymphocytes (%) (Auto) 7 % (24-48) Monocytes (%) (Auto) 2 % (0-9) Eosinophils (%) (Auto) 0 % (0-3) Basophils (%) (Auto) 0 % (0-3) Neutrophils # (Auto) 7.9 x10^3/uL (1.8-7.7) Lymphocytes # (Auto) 0.6 x10^3/uL (1.0-4.8) Monocytes # (Auto) 0.2 x10^3/uL (0.0-1.1) Eosinophils # (Auto) 0.0 x10^3/uL (0.0-0.7) Basophils # (Auto) 0.0 x10^3/uL (0.0-0.2) Segmented Neutrophils % 88 % (35-66) Band Neutrophils % 4 % (0-9) Lymphocytes % 7 % (24-48) Monocytes % 1 % (0-10) Platelet Estimate Adequate (ADEQUATE) Sodium Level 133 mmol/L (136-145) Potassium Level 3.9 mmol/L (3.5-5.1) Chloride Level 97 mmol/L (98-107) Carbon Dioxide Level 31 mmol/L (21-32) Anion Gap 5 (6-14) Blood Urea Nitrogen 10 mg/dL (8-26) Creatinine 0.8 mg/dL (0.7-1.3) Estimated GFR (Cockcroft-Gault) 96.1 BUN/Creatinine Ratio 13 (6-20) Glucose Level 155 mg/dL (70-99) Calcium Level 8.6 mg/dL (8.5-10.1) Total Bilirubin 0.3 mg/dL (0.2-1.0) Aspartate Amino Transf (AST/SGOT) 27 U/L (15-37) Alanine Aminotransferase (ALT/SGPT) 66 U/L (16-63) Alkaline Phosphatase 70 U/L (46-116) Total Protein 7.4 g/dL (6.4-8.2) Albumin 2.4 g/dL (3.4-5.0) Albumin/Globulin Ratio 0.5 (1.0-1.7) Microbiology 09/15/19 Blood Culture - Preliminary, Resulted NO GROWTH AFTER 3 DAYS Medications Current Medications Iohexol (Omnipaque 350 Mg/ml) 100 ml 1X ONCE IV Last administered on 09/15/19at 00:48; Start 09/15/19 at 00:30; Stop 09/15/19 at 00:31; Status DC Info (CONTRAST GIVEN -- Rx MONITORING) 1 each PRN DAILY PRN MC SEE COMMENTS; Start 09/15/19 at 00:30; Stop 09/17/19 at 00:29; Status DC Ceftriaxone Sodium (Rocephin) 1 gm 1X ONCE IVP Last administered on 09/15/19at 02:36; Start 09/15/19 at 02:30; Stop 09/15/19 at 02:31; Status DC Azithromycin (Zithromax) 500 mg 1X ONCE PO Last administered on 09/15/19at 02:35; Start 09/15/19 at 02:30; Stop 09/15/19 at 02:31; Status DC Ondansetron HCl (Zofran) 4 mg PRN Q8HRS PRN IV NAUSEA/VOMITING; Start 09/15/19 at 02:00; Stop 09/16/19 at 01:59; Status DC Morphine Sulfate (Morphine Sulfate) 4 mg PRN Q2HR PRN IV PAIN; Start 09/15/19 at 02:00; Stop 09/16/19 at 01:59; Status DC Acetaminophen (Tylenol) 650 mg PRN Q4HRS PRN PO FEVER > 100.3'F; Start 09/15/19 at 02:00; Stop 09/16/19 at 01:59; Status DC Lisinopril (Prinivil) 10 mg DAILY PO ; Start 09/15/19 at 09:00; Stop 09/15/19 at 10:09; Status DC Tamsulosin HCl (Flomax) 0.4 mg DAILY PO ; Start 09/15/19 at 09:00; Stop 09/15/19 at 10:09; Status DC Carvedilol (Coreg) 6.25 mg BIDWMEALS PO Last administered on 09/16/19at 09:01; Start 09/15/19 at 09:15; Stop 09/16/19 at 12:34; Status DC Ceftriaxone Sodium (Rocephin) 1 gm Q24H IVP ; Start 09/15/19 at 10:00; Status Cancel Azithromycin (Zithromax) 250 mg DAILY PO Last administered on 09/18/19 08:11; Start 09/16/19 at 09:00 Lisinopril (Prinivil) 10 mg HS PO Last administered on 09/16/19 21:59; Start 09/15/19 at 21:00 Tamsulosin HCl (Flomax) 0.4 mg HS PO Last administered on 09/17/19 22:43; Start 09/15/19 at 21:00 Enoxaparin Sodium (Lovenox 40mg Syringe) 40 mg Q24H SQ Last administered on 09/15/19 11:56; Start 09/15/19 at 12:00; Stop 09/16/19 at 12:36; Status DC Ceftriaxone Sodium (Rocephin) 1 gm Q24H IVP Last administered on 09/17/19at 22:43; Start 09/15/19 at 21:00 Lactobacillus Rhamnosus (Culturelle) 1 cap BID PO Last administered on 09/18/19 08:11; Start 09/15/19 at 21:00 Potassium Chloride (Klor-Con) 20 meq 1X ONCE PO Last administered on 09/16/19 13:27; Start 09/16/19 at 12:45; Stop 09/16/19 at 12:46; Status DC Apixaban (Eliquis) 5 mg BID PO Last administered on 09/18/19 08:11; Start 09/16/19 at 13:00 Metoprolol Tartrate (Lopressor) 50 mg BID PO Last administered on 09/18/19 08:11; Start 09/16/19 at 21:00 Acetaminophen (Tylenol) 650 mg PRN Q6HRS PRN PO FEVER > 100.3'F Last administered on 09/16/19 21:55; Start 09/16/19 at 21:15 Lorazepam (Ativan) 1 mg PRN Q6HRS PRN PO ANXIETY / AGITATION Last administered on 09/16/19at 21:55; Start 09/16/19 at 21:15 Nystatin (Nystatin Oral Susp) 5 ml [id number] Last administered on 09/18/19at 08:12; Start 09/17/19 at 09:00 Methylprednisolone Sodium Succinate (SOLU-Medrol 40MG VIAL) 60 mg Q8HRS IV Last administered on 09/18/19at 08:11; Start 09/17/19 at 12:00 Dextrose (Dextrose 50%-Water Syringe) 12.5 gm PRN Q15MIN PRN IV SEE COMMENTS; Start 09/17/19 at 19:00 Dextrose (Iv Dextrose 5%) 250 ml PRN Q15MIN PRN IV SEE COMMENTS; Start 09/17/19 at 19:00 Active Scripts Active Reported Carvedilol 25 Mg Tablet 6.25 Mg PO BIDWMEALS Flomax (Tamsulosin Hcl) 0.4 Mg Cap.er.24h 1 Cap PO DAILY Lisinopril 10 Mg Tablet 1 Tab PO DAILY Vitals/I & O Vital Sign - Last 24 Hours 09/17/19 09/17/19 09/17/19 09/17/19 09:29 11:00 11:10 15:00 Temp 98.1 97.7 98.1 97.7 Pulse 99 78 103 Resp 32 27 B/P (MAP) 114/79 115/76 (89) 132/93 (106) Pulse Ox 96 95 O2 Delivery Nasal Cannula Nasal Cannula Nasal Cannula O2 Flow Rate 5.0 5.0 5.0 09/17/19 09/17/19 09/17/19 09/18/19 20:00 20:00 22:46 00:00 Temp 98.3 97.8 98.3 97.8 Pulse 98 90 78 Resp 27 B/P (MAP) 128/99 (109) 131/91 111/62 (78) Pulse Ox 97 95 O2 Delivery Nasal Cannula Nasal Cannula Nasal Cannula O2 Flow Rate 5.0 5.0 5.0 09/18/19 09/18/19 09/18/19 09/18/19 04:00 07:00 08:00 08:11 Temp 97.8 97.8 97.8 97.8 Pulse 86 105 105 Resp 27 16 B/P (MAP) 140/101 (114) 145/105 (118) 145/105 Pulse Ox 92 96 O2 Delivery Nasal Cannula Nasal Cannula Nasal Cannula O2 Flow Rate 5.0 5.0 5.0 Intake and Output 09/17/19 09/17/1909/17/20 15:00 23:00 07:00 Intake Total 1400 ml 1580 ml 700 ml Balance 1400 ml 1580 ml 700 ml CHARY GOODWIN MD Sep 18, 2019 09:05
[2019-09-18] MEDS ORDERED: ANTI-COAG MONITOR BY PHARMACY. MC PRN (10:15)
--- NOTE | 2019-09-18 10:29 | NUR ---
SS following up with discharge planning. SS reviewed pt chart and discussed with pt RN. Pt is COVID19 positive. Pt currently requiring oxygen and is on IV Azithromycin and Rocephin. Pt is living in [address] post incarceration. Pt is self pay pt. Medicaid application submitted by [facility]. SS providing pt with contact information to apply for Medicare if eligible. Pt transferred to room 669. SS will continue to follow for discharge planning.
--- NOTE | 2019-09-18 11:34 | PDOC ---
CARDIO Progress Notes Date and Time Date of Service 09/18/2019 Time of Evaluation 0930 Subjective Subjective: No Chest Pain, No shortness of breath, No Palpitations Vitals Vitals Vital Signs Date Time Temp Pulse Resp B/P (MAP) Pulse Ox O2 Delivery O2 Flow Rate FiO2 09/18/19 08:11 105 145/105 09/18/19 08:00 Nasal Cannula 5.0 09/18/19 07:00 97.8 16 96 97.8 Weight Weight [ ] Input and Output Intake and Output Intake and Output 09/18/19 07:00 Intake Total 3680 ml Balance 3680 ml Intake Oral 3680 ml # Voids 12 # Bowel Movements 4 Laboratory Labs Laboratory Tests Test 09/17/19 23:06 09/18/19 03:15 09/18/19 07:26 Glucose (Fingerstick) 154 mg/dL (70-99) 173 mg/dL (70-99) White Blood Count 8.7 x10^3/uL (4.0-11.0) Red Blood Count 4.31 x10^6/uL (4.30-5.70) Hemoglobin 12.9 g/dL (13.0-17.5) Hematocrit 37.1 % (39.0-53.0) Mean Corpuscular Volume 86 fL (79-100) Mean Corpuscular Hemoglobin 30 pg (25-35) Mean Corpuscular Hemoglobin Concent 35 g/dL (31-37) Red Cell Distribution Width 13.3 % (11.5-14.5) Platelet Count 380 x10^3/uL (140-400) Neutrophils (%) (Auto) 90 % (31-73) Lymphocytes (%) (Auto) 7 % (24-48) Monocytes (%) (Auto) 2 % (0-9) Eosinophils (%) (Auto) 0 % (0-3) Basophils (%) (Auto) 0 % (0-3) Neutrophils # (Auto) 7.9 x10^3/uL (1.8-7.7) Lymphocytes # (Auto) 0.6 x10^3/uL (1.0-4.8) Monocytes # (Auto) 0.2 x10^3/uL (0.0-1.1) Eosinophils # (Auto) 0.0 x10^3/uL (0.0-0.7) Basophils # (Auto) 0.0 x10^3/uL (0.0-0.2) Segmented Neutrophils % 88 % (35-66) Band Neutrophils % 4 % (0-9) Lymphocytes % 7 % (24-48) Monocytes % 1 % (0-10) Platelet Estimate Adequate (ADEQUATE) Sodium Level 133 mmol/L (136-145) Potassium Level 3.9 mmol/L (3.5-5.1) Chloride Level 97 mmol/L (98-107) Carbon Dioxide Level 31 mmol/L (21-32) Anion Gap 5 (6-14) Blood Urea Nitrogen 10 mg/dL (8-26) Creatinine 0.8 mg/dL (0.7-1.3) Estimated GFR (Cockcroft-Gault) 96.1 BUN/Creatinine Ratio 13 (6-20) Glucose Level 155 mg/dL (70-99) Calcium Level 8.6 mg/dL (8.5-10.1) Total Bilirubin 0.3 mg/dL (0.2-1.0) Aspartate Amino Transf (AST/SGOT) 27 U/L (15-37) Alanine Aminotransferase (ALT/SGPT) 66 U/L (16-63) Alkaline Phosphatase 70 U/L (46-116) Total Protein 7.4 g/dL (6.4-8.2) Albumin 2.4 g/dL (3.4-5.0) Albumin/Globulin Ratio 0.5 (1.0-1.7) Microbiology Micro Microbiology 09/15/19 Blood Culture - Preliminary, Resulted NO GROWTH AFTER 3 DAYS Physical Exam Chest: Symmetric LUNGS: Other (basilar crackles) Heart: irregularly irregular (AFIB rate controlled) Abdomen: Other (obese) Extremities: No Calf Tenderness Neurology: alert, oriented, follow commands Other Exams Discussed with RN, basilar crackles, visual exam to preserve PPE, pt doing well, no discomfort Assessment Assessment 1. Acute respiratory failure secondary to COVID PNA: SOA better 2. AFIB in the setting of covid PNA: reportedly diagnosed in [facility], no prior cardiac workup. bursts with increased activity otherwise rate controlled 3. Hypertension; mildly labile episode otherwise controlled 4. Hyponatremia: improved 5. Metabolic syndrome: A1C 6.2 6. H/o hepatitis C 7. Hypokalemia: resolved Recommendations 1. TTE as an outpt once fully recovered from covid 2. Continue lopressor and will consider increasing if BP trends up and if continued bursts, Eliquis for stroke prevention. Clarifying medicare coverage otherwise pt may not be able to afford eliquis with medicaid only with 45 day waiting period. Awaiting SS in regards to medicare qualification status. One option is to enroll him for med assistance directly through [employer] if josé ilable. Will provide samples fo0r the mean time going forward pending status of the latter. 3. Outpt clinician [facility] referral. Encouraged to follow up in office. Justicifation of Admission Dx: Justifications for Admission: Justification of Admission Dx: Yes Respiratory Failure: Severe Resp Distress Aspiration Pneumonia: Chronic Lung Disease SHANDA ZACARIAS LEAF SORTER Sep 18, 2019 11:34
--- NOTE | 2019-09-18 12:04 | PDOC ---
PULMONARY PROGRESS NOTES Subjective no soa Vitals Vital Signs Date Time Temp Pulse Resp B/P (MAP) Pulse Ox O2 Delivery O2 Flow Rate FiO2 09/18/19 08:11 105 145/105 09/18/19 08:00 Nasal Cannula 5.0 09/18/19 07:00 97.8 16 96 97.8 Comments visual exam done due to COVID pandemia no soa, no rash General: Alert, No acute distress Labs Laboratory Tests Test 09/16/19 23:35 09/17/19 07:45 09/17/19 11:10 09/17/19 23:06 Urine Sodium 18 mmol/L (Not Estab.) Urine Potassium 10.0 mmol/L (Not Estab.) Urine Chloride 13 mmol/L (Not Estab.) White Blood Count 7.7 x10^3/uL (4.0-11.0) Red Blood Count 4.11 x10^6/uL (4.30-5.70) Hemoglobin 12.4 g/dL (13.0-17.5) Hematocrit 35.3 % (39.0-53.0) Mean Corpuscular Volume 86 fL (79-100) Mean Corpuscular Hemoglobin 30 pg (25-35) Mean Corpuscular Hemoglobin Concent 35 g/dL (31-37) Red Cell Distribution Width 13.4 % (11.5-14.5) Platelet Count 312 x10^3/uL (140-400) Neutrophils (%) (Auto) 75 % (31-73) Lymphocytes (%) (Auto) 12 % (24-48) Monocytes (%) (Auto) 11 % (0-9) Eosinophils (%) (Auto) 1 % (0-3) Basophils (%) (Auto) 1 % (0-3) Neutrophils # (Auto) 5.8 x10^3/uL (1.8-7.7) Lymphocytes # (Auto) 0.9 x10^3/uL (1.0-4.8) Monocytes # (Auto) 0.9 x10^3/uL (0.0-1.1) Eosinophils # (Auto) 0.1 x10^3/uL (0.0-0.7) Basophils # (Auto) 0.1 x10^3/uL (0.0-0.2) Prothrombin Time 15.0 SEC (11.7-14.0) Prothromb Time International Ratio 1.2 (0.8-1.1) Sodium Level 132 mmol/L (136-145) Potassium Level 3.6 mmol/L (3.5-5.1) Chloride Level 96 mmol/L (98-107) Carbon Dioxide Level 31 mmol/L (21-32) Anion Gap 5 (6-14) Blood Urea Nitrogen 8 mg/dL (8-26) Creatinine 0.8 mg/dL (0.7-1.3) Estimated GFR (Cockcroft-Gault) 96.1 Glucose Level 117 mg/dL (70-99) Calcium Level 7.9 mg/dL (8.5-10.1) Magnesium Level 2.1 mg/dL (1.8-2.4) Total Bilirubin 0.4 mg/dL (0.2-1.0) Direct Bilirubin 0.2 mg/dL (0.0-0.2) Aspartate Amino Transf (AST/SGOT) 30 U/L (15-37) Alanine Aminotransferase (ALT/SGPT) 61 U/L (16-63) Alkaline Phosphatase 69 U/L (46-116) Lactate Dehydrogenase 258 U/L (85-227) C-Reactive Protein, Quantitative 45.3 mg/L (0-3.3) Total Protein 6.9 g/dL (6.4-8.2) Albumin 2.3 g/dL (3.4-5.0) O2 Saturation 94 % (92-99) Arterial Blood pH 7.50 (7.35-7.45) Arterial Blood pCO2 at Patient Temp 35 mmHg (35-46) Arterial Blood pO2 at Patient Temp 67 mmHg (65-108) Arterial Blood HCO3 26 mmol/L (21-28) Arterial Blood Base Excess 3 mmol/L (-3-3) FiO2 40 Glucose (Fingerstick) 154 mg/dL (70-99) Test 09/18/19 03:15 09/18/19 07:26 09/18/19 11:39 White Blood Count 8.7 x10^3/uL (4.0-11.0) Red Blood Count 4.31 x10^6/uL (4.30-5.70) Hemoglobin 12.9 g/dL (13.0-17.5) Hematocrit 37.1 % (39.0-53.0) Mean Corpuscular Volume 86 fL (79-100) Mean Corpuscular Hemoglobin 30 pg (25-35) Mean Corpuscular Hemoglobin Concent 35 g/dL (31-37) Red Cell Distribution Width 13.3 % (11.5-14.5) Platelet Count 380 x10^3/uL (140-400) Neutrophils (%) (Auto) 90 % (31-73) Lymphocytes (%) (Auto) 7 % (24-48) Monocytes (%) (Auto) 2 % (0-9) Eosinophils (%) (Auto) 0 % (0-3) Basophils (%) (Auto) 0 % (0-3) Neutrophils # (Auto) 7.9 x10^3/uL (1.8-7.7) Lymphocytes # (Auto) 0.6 x10^3/uL (1.0-4.8) Monocytes # (Auto) 0.2 x10^3/uL (0.0-1.1) Eosinophils # (Auto) 0.0 x10^3/uL (0.0-0.7) Basophils # (Auto) 0.0 x10^3/uL (0.0-0.2) Segmented Neutrophils % 88 % (35-66) Band Neutrophils % 4 % (0-9) Lymphocytes % 7 % (24-48) Monocytes % 1 % (0-10) Platelet Estimate Adequate (ADEQUATE) Sodium Level 133 mmol/L (136-145) Potassium Level 3.9 mmol/L (3.5-5.1) Chloride Level 97 mmol/L (98-107) Carbon Dioxide Level 31 mmol/L (21-32) Anion Gap 5 (6-14) Blood Urea Nitrogen 10 mg/dL (8-26) Creatinine 0.8 mg/dL (0.7-1.3) Estimated GFR (Cockcroft-Gault) 96.1 BUN/Creatinine Ratio 13 (6-20) Glucose Level 155 mg/dL (70-99) Calcium Level 8.6 mg/dL (8.5-10.1) Total Bilirubin 0.3 mg/dL (0.2-1.0) Aspartate Amino Transf (AST/SGOT) 27 U/L (15-37) Alanine Aminotransferase (ALT/SGPT) 66 U/L (16-63) Alkaline Phosphatase 70 U/L (46-116) Total Protein 7.4 g/dL (6.4-8.2) Albumin 2.4 g/dL (3.4-5.0) Albumin/Globulin Ratio 0.5 (1.0-1.7) Glucose (Fingerstick) 173 mg/dL (70-99) 165 mg/dL (70-99) Laboratory Tests Test 09/17/19 23:06 09/18/19 03:15 09/18/19 07:26 09/18/19 11:39 Glucose (Fingerstick) 154 mg/dL (70-99) 173 mg/dL (70-99) 165 mg/dL (70-99) White Blood Count 8.7 x10^3/uL (4.0-11.0) Red Blood Count 4.31 x10^6/uL (4.30-5.70) Hemoglobin 12.9 g/dL (13.0-17.5) Hematocrit 37.1 % (39.0-53.0) Mean Corpuscular Volume 86 fL (79-100) Mean Corpuscular Hemoglobin 30 pg (25-35) Mean Corpuscular Hemoglobin Concent 35 g/dL (31-37) Red Cell Distribution Width 13.3 % (11.5-14.5) Platelet Count 380 x10^3/uL (140-400) Neutrophils (%) (Auto) 90 % (31-73) Lymphocytes (%) (Auto) 7 % (24-48) Monocytes (%) (Auto) 2 % (0-9) Eosinophils (%) (Auto) 0 % (0-3) Basophils (%) (Auto) 0 % (0-3) Neutrophils # (Auto) 7.9 x10^3/uL (1.8-7.7) Lymphocytes # (Auto) 0.6 x10^3/uL (1.0-4.8) Monocytes # (Auto) 0.2 x10^3/uL (0.0-1.1) Eosinophils # (Auto) 0.0 x10^3/uL (0.0-0.7) Basophils # (Auto) 0.0 x10^3/uL (0.0-0.2) Segmented Neutrophils % 88 % (35-66) Band Neutrophils % 4 % (0-9) Lymphocytes % 7 % (24-48) Monocytes % 1 % (0-10) Platelet Estimate Adequate (ADEQUATE) Sodium Level 133 mmol/L (136-145) Potassium Level 3.9 mmol/L (3.5-5.1) Chloride Level 97 mmol/L (98-107) Carbon Dioxide Level 31 mmol/L (21-32) Anion Gap 5 (6-14) Blood Urea Nitrogen 10 mg/dL (8-26) Creatinine 0.8 mg/dL (0.7-1.3) Estimated GFR (Cockcroft-Gault) 96.1 BUN/Creatinine Ratio 13 (6-20) Glucose Level 155 mg/dL (70-99) Calcium Level 8.6 mg/dL (8.5-10.1) Total Bilirubin 0.3 mg/dL (0.2-1.0) Aspartate Amino Transf (AST/SGOT) 27 U/L (15-37) Alanine Aminotransferase (ALT/SGPT) 66 U/L (16-63) Alkaline Phosphatase 70 U/L (46-116) Total Protein 7.4 g/dL (6.4-8.2) Albumin 2.4 g/dL (3.4-5.0) Albumin/Globulin Ratio 0.5 (1.0-1.7) Medications Active Scripts Medications Dose Route/Sig Max Daily Dose Days Date Category Carvedilol 25 Mg Tablet 6.25 Mg PO BIDWMEALS 09/15/19 Reported Flomax (Tamsulosin Hcl) 0.4 Mg Cap.er.24h 1 Cap PO DAILY 09/15/19 Reported Lisinopril 10 Mg Tablet 1 Tab PO DAILY 09/15/19 Reported Impression . 1. Acute hypoxic respiratory failure secondary to COVID-[address] chest with bilateral ground glass infiltrates and some pleural thickening. No evidence of any pulmonary embolism. Findings are consistent with COVID-19 pneumonia. 3. COVID-19 positive. 4. Underlying chronic obstructive pulmonary disease. 5. History of tuberculosis, treated in the 80s for 1 year. 6. 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 Plan . 1. Continue present oxygen . keep saturation 92% and above. 2. steroids added 09/16 3. Continue antibiotics, azithromycin. 4. s/p convalescent plasma. 5. Lovenox for deep vein thrombosis prophylaxis. 6. Infectious Disease rec 7. We will follow along with you. Discussed with CARLINE ALATORRE MD Sep 18, 2019 12:04
[2019-09-18] MEDS: LISINOPRIL 10 MG TABLET PO SCH (22:11)
[2019-09-18] MEDS: TAMSULOSIN 0.4 MG CAP.ER.24H. PO SCH (22:11)
[2019-09-18] MEDS: cefTRIAXone IV Push 1 GM VIAL. IVP SCH (22:13)
[2019-09-19] VITALS (7 sets, daily range): BP systolic 127–205; BP diastolic 63–133
--- NOTE | 2019-09-19 01:00 | NUR ---
Patient standing out in the hallway, says needs help, he has pulled out his iv, pulled off hall monitor, and urinated on floor in room, his pants, and the bathroom. floor cleaned with bleach, patient given body cleansing wipes, for patient to cleanse himself, monitor replaced, patient appears to be a bit confused. to monitor.
[2019-09-19] MEDS: LORazepam 1 MG TABLET PO PRN (04:42)
[2019-09-19] MEDS: methylPREDNISolone SOD SUCC PF 40 MG/ML VIAL. IV SCH ×3 (04:44→20:53)
[2019-09-19 04:52] LABS: BASO # 0.2 x10^3/uL (0.0-0.2); BASO % 1 % (0-3); EOS % 0 % (0-3); HEMATOCRIT 39.1 % (39.0-53.0); HEMOGLOBIN 13.2 g/dL (13.0-17.5); LYMPH # 0.8 x10^3/uL (1.0-4.8); LYMPH % 5 % (24-48); MEAN CORPUSCULAR HEMOGLOBIN 29 pg (25-35); MEAN CORPUSCULAR HGB CONC 34 g/dL (31-37); MEAN CORPUSCULAR VOLUME 87 fL (79-100); MONO # 0.4 x10^3/uL (0.0-1.1); MONO % 3 % (0-9); NEUT # 15.7 x10^3/uL (1.8-7.7); NEUT % 92 % (31-73); PLATELET COUNT 444 x10^3/uL (140-400); RED BLOOD COUNT 4.52 x10^6/uL (4.30-5.70); RED CELL DISTRIBUTION WIDTH 13.5 % (11.5-14.5); WHITE BLOOD COUNT 17.2 x10^3/uL (4.0-11.0)
--- NOTE | 2019-09-19 04:56 | NUR ---
Patient very anxious, shaking, walking around in the room, lorazepam po given and methylprednisone given as he is short of breath. to monitor,
[2019-09-19 05:17] LABS: ALBUMIN 2.7 g/dL (3.4-5.0); ALBUMIN/GLOBULIN RATIO 0.6 (1.0-1.7); C-REACTIVE PROTEIN 18.2 mg/L (0-3.3); CALCIUM 8.5 mg/dL (8.5-10.1); CREATININE 0.9 mg/dL (0.7-1.3); GFR 83.9; POTASSIUM 4.1 mmol/L (3.5-5.1); TOTAL BILIRUBIN 0.3 mg/dL (0.2-1.0); TOTAL PROTEIN 7.5 g/dL (6.4-8.2)
[2019-09-19 07:58] LABS: % BANDS 3 % (0-9); % LYMPHS 4 % (24-48); % MONOS 2 % (0-10); % MYELOS 1 % (0-0); % SEGS 90 % (35-66); PLT ESTIMATE INCREASED (ADEQUATE)
--- NOTE | 2019-09-19 09:22 | PDOC ---
Infectious Disease Note Subjective Subjective Feeing well. No F/C/s/N/V/D/SOA Min cough. Mouth better Eating well Vital Sign Vital Signs Vital Signs Date Time Temp Pulse Resp B/P (MAP) Pulse Ox O2 Delivery O2 Flow Rate FiO2 09/19/19 07:45 95.1 54 169/91 (117) 94 Room Air 5.0 95.1 09/19/19 03:00 22 Physical Exam PHYSICAL EXAM CONSTITUTIONAL: He is sitting on side of bed. He is in no acute distress.Looks well HEENT: Pupils are equal and reactive with normal conjunctivae. Oral cavity, pharynx has some dentures, improved thrush. NECK: Supple, without JVD. LUNGS: Had some mild crackles. HEART: S1, S2. ABDOMEN: Obese, soft, nontender, no guarding or rebound. EXTREMITIES: Without clubbing, cyanosis. He had 1+ lower extremity edema. SKIN: Warm without signs of rash. He has had multiple tattoos. NEUROLOGIC: Nonfocal, answers questions appropriately. PSYCHIATRIC: Affect is appropriate Labs Lab Laboratory Tests Test 09/18/19 11:39 09/18/19 17:11 09/18/19 21:23 09/19/19 04:30 Glucose (Fingerstick) 165 mg/dL (70-99) 132 mg/dL (70-99) 151 mg/dL (70-99) White Blood Count 17.2 x10^3/uL (4.0-11.0) Red Blood Count 4.52 x10^6/uL (4.30-5.70) Hemoglobin 13.2 g/dL (13.0-17.5) Hematocrit 39.1 % (39.0-53.0) Mean Corpuscular Volume 87 fL (79-100) Mean Corpuscular Hemoglobin 29 pg (25-35) Mean Corpuscular Hemoglobin Concent 34 g/dL (31-37) Red Cell Distribution Width 13.5 % (11.5-14.5) Platelet Count 444 x10^3/uL (140-400) Neutrophils (%) (Auto) 92 % (31-73) Lymphocytes (%) (Auto) 5 % (24-48) Monocytes (%) (Auto) 3 % (0-9) Eosinophils (%) (Auto) 0 % (0-3) Basophils (%) (Auto) 1 % (0-3) Neutrophils # (Auto) 15.7 x10^3/uL (1.8-7.7) Lymphocytes # (Auto) 0.8 x10^3/uL (1.0-4.8) Monocytes # (Auto) 0.4 x10^3/uL (0.0-1.1) Eosinophils # (Auto) 0.0 x10^3/uL (0.0-0.7) Basophils # (Auto) 0.2 x10^3/uL (0.0-0.2) Segmented Neutrophils % 90 % (35-66) Band Neutrophils % 3 % (0-9) Lymphocytes % 4 % (24-48) Monocytes % 2 % (0-10) Myelocytes % 1 % (0-0) Platelet Estimate Increased (ADEQUATE) Sodium Level 134 mmol/L (136-145) Potassium Level 4.1 mmol/L (3.5-5.1) Chloride Level 96 mmol/L (98-107) Carbon Dioxide Level 31 mmol/L (21-32) Anion Gap 7 (6-14) Blood Urea Nitrogen 14 mg/dL (8-26) Creatinine 0.9 mg/dL (0.7-1.3) Estimated GFR (Cockcroft-Gault) 83.9 BUN/Creatinine Ratio 16 (6-20) Glucose Level 166 mg/dL (70-99) Calcium Level 8.5 mg/dL (8.5-10.1) Total Bilirubin 0.3 mg/dL (0.2-1.0) Aspartate Amino Transf (AST/SGOT) 30 U/L (15-37) Alanine Aminotransferase (ALT/SGPT) 69 U/L (16-63) Alkaline Phosphatase 75 U/L (46-116) Lactate Dehydrogenase 317 U/L (85-227) C-Reactive Protein, Quantitative 18.2 mg/L (0-3.3) Total Protein 7.5 g/dL (6.4-8.2) Albumin 2.7 g/dL (3.4-5.0) Albumin/Globulin Ratio 0.6 (1.0-1.7) Test 09/19/19 08:47 Glucose (Fingerstick) 135 mg/dL (70-99) Micro Microbiology 09/15/19 Blood Culture - Preliminary, Resulted NO GROWTH AFTER 2 DAYS Objective Assessment COVID + 09/13 s/p Plasma 09/15 Leukocytosis - on steroids Fever ? Plasma - better - Blood cults neg Acute Hypoxic resp failure - better Mild thrush Afib H/o Hep C - treated H/o TB - treated Plan Plan of Care Azithromycin and Rocephin 09/14 wean today 09/18 F/u labs and cults May need Remdesivir if worsens D/w nursing ALVARADO TERRAZAS MD Sep 19, 2019 09:21
--- NOTE | 2019-09-19 09:59 | PDOC ---
PULMONARY PROGRESS NOTES Subjective no soa Vitals Vital Signs Date Time Temp Pulse Resp B/P (MAP) Pulse Ox O2 Delivery O2 Flow Rate FiO2 09/19/19 07:45 95.1 54 169/91 (117) 94 Room Air 5.0 95.1 09/19/19 03:00 22 Comments visual exam done due to COVID pandemia no soa, no rash General: Alert, No acute distress Labs Laboratory Tests Test 09/17/19 11:10 09/17/19 23:06 09/18/19 03:15 09/18/19 07:26 O2 Saturation 94 % (92-99) Arterial Blood pH 7.50 (7.35-7.45) Arterial Blood pCO2 at Patient Temp 35 mmHg (35-46) Arterial Blood pO2 at Patient Temp 67 mmHg (65-108) Arterial Blood HCO3 26 mmol/L (21-28) Arterial Blood Base Excess 3 mmol/L (-3-3) FiO2 40 Glucose (Fingerstick) 154 mg/dL (70-99) 173 mg/dL (70-99) White Blood Count 8.7 x10^3/uL (4.0-11.0) Red Blood Count 4.31 x10^6/uL (4.30-5.70) Hemoglobin 12.9 g/dL (13.0-17.5) Hematocrit 37.1 % (39.0-53.0) Mean Corpuscular Volume 86 fL (79-100) Mean Corpuscular Hemoglobin 30 pg (25-35) Mean Corpuscular Hemoglobin Concent 35 g/dL (31-37) Red Cell Distribution Width 13.3 % (11.5-14.5) Platelet Count 380 x10^3/uL (140-400) Neutrophils (%) (Auto) 90 % (31-73) Lymphocytes (%) (Auto) 7 % (24-48) Monocytes (%) (Auto) 2 % (0-9) Eosinophils (%) (Auto) 0 % (0-3) Basophils (%) (Auto) 0 % (0-3) Neutrophils # (Auto) 7.9 x10^3/uL (1.8-7.7) Lymphocytes # (Auto) 0.6 x10^3/uL (1.0-4.8) Monocytes # (Auto) 0.2 x10^3/uL (0.0-1.1) Eosinophils # (Auto) 0.0 x10^3/uL (0.0-0.7) Basophils # (Auto) 0.0 x10^3/uL (0.0-0.2) Segmented Neutrophils % 88 % (35-66) Band Neutrophils % 4 % (0-9) Lymphocytes % 7 % (24-48) Monocytes % 1 % (0-10) Platelet Estimate Adequate (ADEQUATE) Sodium Level 133 mmol/L (136-145) Potassium Level 3.9 mmol/L (3.5-5.1) Chloride Level 97 mmol/L (98-107) Carbon Dioxide Level 31 mmol/L (21-32) Anion Gap 5 (6-14) Blood Urea Nitrogen 10 mg/dL (8-26) Creatinine 0.8 mg/dL (0.7-1.3) Estimated GFR (Cockcroft-Gault) 96.1 BUN/Creatinine Ratio 13 (6-20) Glucose Level 155 mg/dL (70-99) Calcium Level 8.6 mg/dL (8.5-10.1) Total Bilirubin 0.3 mg/dL (0.2-1.0) Aspartate Amino Transf (AST/SGOT) 27 U/L (15-37) Alanine Aminotransferase (ALT/SGPT) 66 U/L (16-63) Alkaline Phosphatase 70 U/L (46-116) Total Protein 7.4 g/dL (6.4-8.2) Albumin 2.4 g/dL (3.4-5.0) Albumin/Globulin Ratio 0.5 (1.0-1.7) Test 09/18/19 11:39 09/18/19 17:11 09/18/19 21:23 09/19/19 04:30 Glucose (Fingerstick) 165 mg/dL (70-99) 132 mg/dL (70-99) 151 mg/dL (70-99) White Blood Count 17.2 x10^3/uL (4.0-11.0) Red Blood Count 4.52 x10^6/uL (4.30-5.70) Hemoglobin 13.2 g/dL (13.0-17.5) Hematocrit 39.1 % (39.0-53.0) Mean Corpuscular Volume 87 fL (79-100) Mean Corpuscular Hemoglobin 29 pg (25-35) Mean Corpuscular Hemoglobin Concent 34 g/dL (31-37) Red Cell Distribution Width 13.5 % (11.5-14.5) Platelet Count 444 x10^3/uL (140-400) Neutrophils (%) (Auto) 92 % (31-73) Lymphocytes (%) (Auto) 5 % (24-48) Monocytes (%) (Auto) 3 % (0-9) Eosinophils (%) (Auto) 0 % (0-3) Basophils (%) (Auto) 1 % (0-3) Neutrophils # (Auto) 15.7 x10^3/uL (1.8-7.7) Lymphocytes # (Auto) 0.8 x10^3/uL (1.0-4.8) Monocytes # (Auto) 0.4 x10^3/uL (0.0-1.1) Eosinophils # (Auto) 0.0 x10^3/uL (0.0-0.7) Basophils # (Auto) 0.2 x10^3/uL (0.0-0.2) Segmented Neutrophils % 90 % (35-66) Band Neutrophils % 3 % (0-9) Lymphocytes % 4 % (24-48) Monocytes % 2 % (0-10) Myelocytes % 1 % (0-0) Platelet Estimate Increased (ADEQUATE) Sodium Level 134 mmol/L (136-145) Potassium Level 4.1 mmol/L (3.5-5.1) Chloride Level 96 mmol/L (98-107) Carbon Dioxide Level 31 mmol/L (21-32) Anion Gap 7 (6-14) Blood Urea Nitrogen 14 mg/dL (8-26) Creatinine 0.9 mg/dL (0.7-1.3) Estimated GFR (Cockcroft-Gault) 83.9 BUN/Creatinine Ratio 16 (6-20) Glucose Level 166 mg/dL (70-99) Calcium Level 8.5 mg/dL (8.5-10.1) Total Bilirubin 0.3 mg/dL (0.2-1.0) Aspartate Amino Transf (AST/SGOT) 30 U/L (15-37) Alanine Aminotransferase (ALT/SGPT) 69 U/L (16-63) Alkaline Phosphatase 75 U/L (46-116) Lactate Dehydrogenase 317 U/L (85-227) C-Reactive Protein, Quantitative 18.2 mg/L (0-3.3) Total Protein 7.5 g/dL (6.4-8.2) Albumin 2.7 g/dL (3.4-5.0) Albumin/Globulin Ratio 0.6 (1.0-1.7) Test 09/19/19 08:47 Glucose (Fingerstick) 135 mg/dL (70-99) Laboratory Tests Test 09/18/19 11:39 09/18/19 17:11 09/18/19 21:23 09/19/19 04:30 Glucose (Fingerstick) 165 mg/dL (70-99) 132 mg/dL (70-99) 151 mg/dL (70-99) White Blood Count 17.2 x10^3/uL (4.0-11.0) Red Blood Count 4.52 x10^6/uL (4.30-5.70) Hemoglobin 13.2 g/dL (13.0-17.5) Hematocrit 39.1 % (39.0-53.0) Mean Corpuscular Volume 87 fL (79-100) Mean Corpuscular Hemoglobin 29 pg (25-35) Mean Corpuscular Hemoglobin Concent 34 g/dL (31-37) Red Cell Distribution Width 13.5 % (11.5-14.5) Platelet Count 444 x10^3/uL (140-400) Neutrophils (%) (Auto) 92 % (31-73) Lymphocytes (%) (Auto) 5 % (24-48) Monocytes (%) (Auto) 3 % (0-9) Eosinophils (%) (Auto) 0 % (0-3) Basophils (%) (Auto) 1 % (0-3) Neutrophils # (Auto) 15.7 x10^3/uL (1.8-7.7) Lymphocytes # (Auto) 0.8 x10^3/uL (1.0-4.8) Monocytes # (Auto) 0.4 x10^3/uL (0.0-1.1) Eosinophils # (Auto) 0.0 x10^3/uL (0.0-0.7) Basophils # (Auto) 0.2 x10^3/uL (0.0-0.2) Segmented Neutrophils % 90 % (35-66) Band Neutrophils % 3 % (0-9) Lymphocytes % 4 % (24-48) Monocytes % 2 % (0-10) Myelocytes % 1 % (0-0) Platelet Estimate Increased (ADEQUATE) Sodium Level 134 mmol/L (136-145) Potassium Level 4.1 mmol/L (3.5-5.1) Chloride Level 96 mmol/L (98-107) Carbon Dioxide Level 31 mmol/L (21-32) Anion Gap 7 (6-14) Blood Urea Nitrogen 14 mg/dL (8-26) Creatinine 0.9 mg/dL (0.7-1.3) Estimated GFR (Cockcroft-Gault) 83.9 BUN/Creatinine Ratio 16 (6-20) Glucose Level 166 mg/dL (70-99) Calcium Level 8.5 mg/dL (8.5-10.1) Total Bilirubin 0.3 mg/dL (0.2-1.0) Aspartate Amino Transf (AST/SGOT) 30 U/L (15-37) Alanine Aminotransferase (ALT/SGPT) 69 U/L (16-63) Alkaline Phosphatase 75 U/L (46-116) Lactate Dehydrogenase 317 U/L (85-227) C-Reactive Protein, Quantitative 18.2 mg/L (0-3.3) Total Protein 7.5 g/dL (6.4-8.2) Albumin 2.7 g/dL (3.4-5.0) Albumin/Globulin Ratio 0.6 (1.0-1.7) Test 09/19/19 08:47 Glucose (Fingerstick) 135 mg/dL (70-99) Medications Active Scripts Medications Dose Route/Sig Max Daily Dose Days Date Category Carvedilol 25 Mg Tablet 6.25 Mg PO BIDWMEALS 09/15/19 Reported Flomax (Tamsulosin Hcl) 0.4 Mg Cap.er.24h 1 Cap PO DAILY 09/15/19 Reported Lisinopril 10 Mg Tablet 1 Tab PO DAILY 09/15/19 Reported Impression . 1. Acute hypoxic respiratory failure secondary to COVID-[address] chest with bilateral ground glass infiltrates and some pleural thickening. No evidence of any pulmonary embolism. Findings are consistent with COVID-19 pneumonia. 3. COVID-19 positive. 4. Underlying chronic obstructive pulmonary disease. 5. History of tuberculosis, treated in the 80s for 1 year. 6. 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 Plan . 1. Continue present oxygen . keep saturation 92% and above. 2. steroids added 09/16 3. Continue antibiotics, azithromycin. 4. s/p convalescent plasma. 5. Lovenox for deep vein thrombosis prophylaxis. 6. Infectious Disease rec 7. We will follow along with you. Discussed with RN clinically improving CARLINE ELIZONDO MD Sep 19, 2019 09:59
--- NOTE | 2019-09-19 10:33 | PDOC ---
[employer] PROGRESS NOTE Chief Complaint Chief Complaint Covid 19 infection Paroxysmal atrial fibrillation Acute COPD exacerbation Atypical pneumonia Hyponatremia secondary to low effective circulatory volume Contraction alkalosis Transaminitis History of hepatitis C History of TB treated as reported by the patient, he carries a card from the [facility] in his wallet, no fever no weight loss no lymphadenopathy noted in [facility] for 25 some years. history of tuberculosis in the late 80s and was treated for 1 year. 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 History of Present Illness History of Present Illness 09/19/2019 Patient seen and examined He accidentally urinated on the floor Appears weak and frail His temperature is 95 Discussed with RN We are going to put a bear hugger on him to warming up He is very ill Vitals/I&O Vitals/I&O: Vital Signs Date Time Temp Pulse Resp B/P (MAP) Pulse Ox O2 Delivery O2 Flow Rate FiO2 09/19/19 07:45 95.1 54 169/91 (117) 94 Room Air 5.0 95.1 09/19/19 03:00 22 I & O 09/18/19 09/18/19 09/19/19 15:00 23:00 07:00 Intake Total 180 ml 300 ml 800 ml Output Total 250 ml 250 ml Balance -70 ml 50 ml 800 ml Physical Exam Physical Exam: CONSTITUTIONAL: He is sitting on side of bed. Quite ill and weak and shaky HEENT: Pupils are equal and reactive with normal conjunctivae. Oral cavity, pharynx has some dentures, improved thrush. NECK: Supple, without JVD. LUNGS: Had some mild crackles. HEART: S1, S2. ABDOMEN: Obese, soft, nontender, no guarding or rebound. EXTREMITIES: Without clubbing, cyanosis. He had 1+ lower extremity edema. SKIN: Warm without signs of rash. He has had multiple tattoos. NEUROLOGIC: Nonfocal, answers questions appropriately. PSYCHIATRIC: Affect is appropriate General: Cooperative, mild distress Heart: Other (AFIB, rate controlled) Abdomen: Soft, No tenderness, Other (obese ) Extremities: Other (1+ bilateral LE edema ) Skin: No significant lesion Labs Labs: Laboratory Tests Test 09/18/19 11:39 09/18/19 17:11 09/18/19 21:23 09/19/19 04:30 Glucose (Fingerstick) 165 mg/dL (70-99) 132 mg/dL (70-99) 151 mg/dL (70-99) White Blood Count 17.2 x10^3/uL (4.0-11.0) Red Blood Count 4.52 x10^6/uL (4.30-5.70) Hemoglobin 13.2 g/dL (13.0-17.5) Hematocrit 39.1 % (39.0-53.0) Mean Corpuscular Volume 87 fL (79-100) Mean Corpuscular Hemoglobin 29 pg (25-35) Mean Corpuscular Hemoglobin Concent 34 g/dL (31-37) Red Cell Distribution Width 13.5 % (11.5-14.5) Platelet Count 444 x10^3/uL (140-400) Neutrophils (%) (Auto) 92 % (31-73) Lymphocytes (%) (Auto) 5 % (24-48) Monocytes (%) (Auto) 3 % (0-9) Eosinophils (%) (Auto) 0 % (0-3) Basophils (%) (Auto) 1 % (0-3) Neutrophils # (Auto) 15.7 x10^3/uL (1.8-7.7) Lymphocytes # (Auto) 0.8 x10^3/uL (1.0-4.8) Monocytes # (Auto) 0.4 x10^3/uL (0.0-1.1) Eosinophils # (Auto) 0.0 x10^3/uL (0.0-0.7) Basophils # (Auto) 0.2 x10^3/uL (0.0-0.2) Segmented Neutrophils % 90 % (35-66) Band Neutrophils % 3 % (0-9) Lymphocytes % 4 % (24-48) Monocytes % 2 % (0-10) Myelocytes % 1 % (0-0) Platelet Estimate Increased (ADEQUATE) Sodium Level 134 mmol/L (136-145) Potassium Level 4.1 mmol/L (3.5-5.1) Chloride Level 96 mmol/L (98-107) Carbon Dioxide Level 31 mmol/L (21-32) Anion Gap 7 (6-14) Blood Urea Nitrogen 14 mg/dL (8-26) Creatinine 0.9 mg/dL (0.7-1.3) Estimated GFR (Cockcroft-Gault) 83.9 BUN/Creatinine Ratio 16 (6-20) Glucose Level 166 mg/dL (70-99) Calcium Level 8.5 mg/dL (8.5-10.1) Total Bilirubin 0.3 mg/dL (0.2-1.0) Aspartate Amino Transf (AST/SGOT) 30 U/L (15-37) Alanine Aminotransferase (ALT/SGPT) 69 U/L (16-63) Alkaline Phosphatase 75 U/L (46-116) Lactate Dehydrogenase 317 U/L (85-227) C-Reactive Protein, Quantitative 18.2 mg/L (0-3.3) Total Protein 7.5 g/dL (6.4-8.2) Albumin 2.7 g/dL (3.4-5.0) Albumin/Globulin Ratio 0.6 (1.0-1.7) Test 09/19/19 08:47 Glucose (Fingerstick) 135 mg/dL (70-99) Assessment and Plan Assessmemt and Plan Problems Medical Problems: (1) Hypoxemia Status: Acute (2) Person under investigation for COVID-19 Status: Acute (3) Pneumonia Status: Acute Covid 19 infection Paroxysmal atrial fibrillation Acute COPD exacerbation Atypical pneumonia Hyponatremia secondary to low effective circulatory volume Contraction alkalosis Transaminitis History of hepatitis C History of TB treated as reported by the patient, he carries a card from the correctional [employer] in his wallet, no fever no weight loss no lymphadenopathy noted in [facility] for 25 some years. history of tuberculosis in the late 80s and was treated for 1 year. 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 Plan Cardiac monitoring Consult pulmonology Consult cardiology Continue current management Supportive measures Monitor oximetry closely Isolation precaution adding steroids IV SOLUMEDROL 60 MG Q 8 HRS Continue antibiotics, azithromycin. s/p convalescent plasma. Home meds DVT prophylaxis Full code Long-term prognosis guarded Total time 31 Comment Review of Relevant I have reviewed the following items syed (where applicable) has been applied. Justicifation of Admission Dx: Justifications for Admission: Justification of Admission Dx: Yes Respiratory Failure: Severe Resp Distress Aspiration Pneumonia: Chronic Lung Disease BETTY MELENDEZ III DO Sep 19, 2019 10:33
[2019-09-19] MEDS: LACTOBACILLUS RHAMNOSUS GG 1 CAPSULE. PO SCH ×2 (10:34→19:55)
[2019-09-19] MEDS: APIXABAN 5 MG TABLET. PO SCH ×2 (10:34→19:56)
[2019-09-19] MEDS: NYSTATIN 100,000 UNITS/ML 5 ML ORAL.SUSP. SWSW SCH ×4 (10:35→19:56)
[2019-09-19] MEDS: METOPROLOL TART IMMED RELEASE 50 MG TABLET. PO SCH ×2 (10:35→19:56)
--- NOTE | 2019-09-19 11:29 | PDOC ---
CARDIO Progress Notes Date and Time Date of Service 09/19/2019 Time of Evaluation 1120 Subjective Subjective: No Chest Pain, No shortness of breath, No Palpitations Vitals Vitals Vital Signs Date Time Temp Pulse Resp B/P (MAP) Pulse Ox O2 Delivery O2 Flow Rate FiO2 09/19/19 10:35 54 169/91 09/19/19 08:00 Nasal Cannula 5.0 09/19/19 07:45 95.1 94 95.1 09/19/19 03:00 22 Weight Weight [ ] Input and Output Intake and Output Intake and Output 09/19/19 07:00 Intake Total 1280 ml Output Total 500 ml Balance 780 ml Intake Oral 1280 ml Output Urine Total 500 ml # Voids 1 Laboratory Labs Laboratory Tests Test 09/18/19 11:39 09/18/19 17:11 09/18/19 21:23 09/19/19 04:30 Glucose (Fingerstick) 165 mg/dL (70-99) 132 mg/dL (70-99) 151 mg/dL (70-99) White Blood Count 17.2 x10^3/uL (4.0-11.0) Red Blood Count 4.52 x10^6/uL (4.30-5.70) Hemoglobin 13.2 g/dL (13.0-17.5) Hematocrit 39.1 % (39.0-53.0) Mean Corpuscular Volume 87 fL (79-100) Mean Corpuscular Hemoglobin 29 pg (25-35) Mean Corpuscular Hemoglobin Concent 34 g/dL (31-37) Red Cell Distribution Width 13.5 % (11.5-14.5) Platelet Count 444 x10^3/uL (140-400) Neutrophils (%) (Auto) 92 % (31-73) Lymphocytes (%) (Auto) 5 % (24-48) Monocytes (%) (Auto) 3 % (0-9) Eosinophils (%) (Auto) 0 % (0-3) Basophils (%) (Auto) 1 % (0-3) Neutrophils # (Auto) 15.7 x10^3/uL (1.8-7.7) Lymphocytes # (Auto) 0.8 x10^3/uL (1.0-4.8) Monocytes # (Auto) 0.4 x10^3/uL (0.0-1.1) Eosinophils # (Auto) 0.0 x10^3/uL (0.0-0.7) Basophils # (Auto) 0.2 x10^3/uL (0.0-0.2) Segmented Neutrophils % 90 % (35-66) Band Neutrophils % 3 % (0-9) Lymphocytes % 4 % (24-48) Monocytes % 2 % (0-10) Myelocytes % 1 % (0-0) Platelet Estimate Increased (ADEQUATE) Sodium Level 134 mmol/L (136-145) Potassium Level 4.1 mmol/L (3.5-5.1) Chloride Level 96 mmol/L (98-107) Carbon Dioxide Level 31 mmol/L (21-32) Anion Gap 7 (6-14) Blood Urea Nitrogen 14 mg/dL (8-26) Creatinine 0.9 mg/dL (0.7-1.3) Estimated GFR (Cockcroft-Gault) 83.9 BUN/Creatinine Ratio 16 (6-20) Glucose Level 166 mg/dL (70-99) Calcium Level 8.5 mg/dL (8.5-10.1) Total Bilirubin 0.3 mg/dL (0.2-1.0) Aspartate Amino Transf (AST/SGOT) 30 U/L (15-37) Alanine Aminotransferase (ALT/SGPT) 69 U/L (16-63) Alkaline Phosphatase 75 U/L (46-116) Lactate Dehydrogenase 317 U/L (85-227) C-Reactive Protein, Quantitative 18.2 mg/L (0-3.3) Total Protein 7.5 g/dL (6.4-8.2) Albumin 2.7 g/dL (3.4-5.0) Albumin/Globulin Ratio 0.6 (1.0-1.7) Test 09/19/19 08:47 Glucose (Fingerstick) 135 mg/dL (70-99) Microbiology Micro Microbiology 09/15/19 Blood Culture - Preliminary, Resulted NO GROWTH AFTER 4 DAYS Physical Exam LUNGS: Other (diminsihed bases) Heart: irregularly irregular (AFIB rate controlled) Abdomen: Other (obese) Extremities: No Calf Tenderness Neurology: alert, oriented, follow commands Other Exams Discussed with RN, pt is ambulatory without difficulty with lungs clear to auscultation, brief bursts of fast rate otherwise rate controlled AFIB Assessment Assessment 1. Acute respiratory failure secondary to COVID PNA: SOA better 2. AFIB in the setting of covid PNA: reportedly diagnosed in [facility], no prior cardiac workup. rate controlled 3. Hypertension; controlled 4. Hyponatremia: improved 5. Metabolic syndrome: A1C 6.2 6. H/o hepatitis C 7. Hypokalemia: resolved Recommendations 1. TTE as an outpt once fully recovered from covid 2. Eliquis for stroke prevention. Pt will not be able to afford eliquis until [place] coverage [place] available and presently at a 45 day waiting period, may not qualify for medicare. Will provide 1 month sample and a 30 day card for eliquis. Encouraged to follow up in office. For the mean time he will need to f/u with [facility] clinic such as [facility] per [facility] referral. I did discussed with him about AFIB, anticoagulation therapy benefits and risks and potential ASA alternative if unable to afford eliquis from lack of insurance or denied medical assistance. Discussed with RN and primary probate lawyer. 3. Continue lopressor. for rate control Justicifation of Admission Dx: Justifications for Admission: Justification of Admission Dx: Yes Respiratory Failure: Severe Resp Distress Aspiration Pneumonia: Chronic Lung Disease SHANDA ZACARIAS POLITICAL THEORY PROFESSOR Sep 19, 2019 11:29
--- NOTE | 2019-09-19 15:27 | NUR ---
SW following. Reviewed chart and coordinated care with RN. Pt from / [facility] with plans to return upon discharge. Pt is self-pay but Medicaid application has been submitted per chart review. Pt on 5l 02 and IV medications. Pt not ready for discharge today per RN. ANGIE to continue following.
[2019-09-19] MEDS: LISINOPRIL 10 MG TABLET PO SCH (19:55)
[2019-09-19] MEDS: TAMSULOSIN 0.4 MG CAP.ER.24H. PO SCH (19:56)
[2019-09-20 03:45] VITALS: BP 137/90
[2019-09-20] MEDS: methylPREDNISolone SOD SUCC PF 40 MG/ML VIAL. IV SCH ×3 (05:47→20:31)
--- NOTE | 2019-09-20 07:23 | PDOC ---
PULMONARY PROGRESS NOTES Subjective on 02 5 lpm, denies sob, has occ cough, wants to go home Vitals Vital Signs Date Time Temp Pulse Resp B/P (MAP) Pulse Ox O2 Delivery O2 Flow Rate FiO2 09/20/19 03:45 95.1 94 18 137/90 (106) 94 Nasal Cannula 5.0 95.1 Comments visual exam done due to COVID pandemia no soa, appears comfortable no paradoxical abd motion alert and oriented no rash General: Alert, No acute distress Labs Laboratory Tests Test 09/18/19 07:26 09/18/19 11:39 09/18/19 17:11 09/18/19 21:23 Glucose (Fingerstick) 173 mg/dL (70-99) 165 mg/dL (70-99) 132 mg/dL (70-99) 151 mg/dL (70-99) Test 09/19/19 04:30 09/19/19 08:47 09/19/19 11:59 09/19/19 20:30 White Blood Count 17.2 x10^3/uL (4.0-11.0) Red Blood Count 4.52 x10^6/uL (4.30-5.70) Hemoglobin 13.2 g/dL (13.0-17.5) Hematocrit 39.1 % (39.0-53.0) Mean Corpuscular Volume 87 fL (79-100) Mean Corpuscular Hemoglobin 29 pg (25-35) Mean Corpuscular Hemoglobin Concent 34 g/dL (31-37) Red Cell Distribution Width 13.5 % (11.5-14.5) Platelet Count 444 x10^3/uL (140-400) Neutrophils (%) (Auto) 92 % (31-73) Lymphocytes (%) (Auto) 5 % (24-48) Monocytes (%) (Auto) 3 % (0-9) Eosinophils (%) (Auto) 0 % (0-3) Basophils (%) (Auto) 1 % (0-3) Neutrophils # (Auto) 15.7 x10^3/uL (1.8-7.7) Lymphocytes # (Auto) 0.8 x10^3/uL (1.0-4.8) Monocytes # (Auto) 0.4 x10^3/uL (0.0-1.1) Eosinophils # (Auto) 0.0 x10^3/uL (0.0-0.7) Basophils # (Auto) 0.2 x10^3/uL (0.0-0.2) Segmented Neutrophils % 90 % (35-66) Band Neutrophils % 3 % (0-9) Lymphocytes % 4 % (24-48) Monocytes % 2 % (0-10) Myelocytes % 1 % (0-0) Platelet Estimate Increased (ADEQUATE) Sodium Level 134 mmol/L (136-145) Potassium Level 4.1 mmol/L (3.5-5.1) Chloride Level 96 mmol/L (98-107) Carbon Dioxide Level 31 mmol/L (21-32) Anion Gap 7 (6-14) Blood Urea Nitrogen 14 mg/dL (8-26) Creatinine 0.9 mg/dL (0.7-1.3) Estimated GFR (Cockcroft-Gault) 83.9 BUN/Creatinine Ratio 16 (6-20) Glucose Level 166 mg/dL (70-99) Calcium Level 8.5 mg/dL (8.5-10.1) Total Bilirubin 0.3 mg/dL (0.2-1.0) Aspartate Amino Transf (AST/SGOT) 30 U/L (15-37) Alanine Aminotransferase (ALT/SGPT) 69 U/L (16-63) Alkaline Phosphatase 75 U/L (46-116) Lactate Dehydrogenase 317 U/L (85-227) C-Reactive Protein, Quantitative 18.2 mg/L (0-3.3) Total Protein 7.5 g/dL (6.4-8.2) Albumin 2.7 g/dL (3.4-5.0) Albumin/Globulin Ratio 0.6 (1.0-1.7) Glucose (Fingerstick) 135 mg/dL (70-99) 157 mg/dL (70-99) 165 mg/dL (70-99) Laboratory Tests Test 09/19/19 08:47 09/19/19 11:59 09/19/19 20:30 Glucose (Fingerstick) 135 mg/dL (70-99) 157 mg/dL (70-99) 165 mg/dL (70-99) Medications Active Scripts Medications Dose Route/Sig Max Daily Dose Days Date Category Carvedilol 25 Mg Tablet 6.25 Mg PO BIDWMEALS 09/15/19 Reported Flomax (Tamsulosin Hcl) 0.4 Mg Cap.er.24h 1 Cap PO DAILY 09/15/19 Reported Lisinopril 10 Mg Tablet 1 Tab PO DAILY 09/15/19 Reported Impression . 1. Acute hypoxic respiratory failure secondary to COVID-[address] chest with bilateral ground glass infiltrates and some pleural thickening. No evidence of any pulmonary embolism. Findings are consistent with COVID-19 pneumonia. 3. COVID-19 positive. 4. Underlying chronic obstructive pulmonary disease. 5. History of tuberculosis, treated in the 80s for 1 year. 6. 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 Plan . 1. titrate fio2 to keep saturation 92% and above. 2. steroids added 09/16, will change to 40 bid 3. Continue antibiotics, azithromycin. 4. s/p convalescent plasma. 5. Lovenox for deep vein thrombosis prophylaxis. 6. Infectious Disease rec 7. We will follow along with you. Discussed with RN, pt clinically improving MAYANK NEELY MD Sep 20, 2019 07:22
[2019-09-20 07:45] VITALS: BP 189/109
[2019-09-20] MEDS: APIXABAN 5 MG TABLET. PO SCH ×2 (08:12→20:31)
[2019-09-20] MEDS: LACTOBACILLUS RHAMNOSUS GG 1 CAPSULE. PO SCH ×2 (08:12→20:31)
[2019-09-20] MEDS: NYSTATIN 100,000 UNITS/ML 5 ML ORAL.SUSP. SWSW SCH ×4 (08:13→20:31)
[2019-09-20] MEDS: METOPROLOL TART IMMED RELEASE 50 MG TABLET. PO SCH ×2 (08:36→20:31)
[2019-09-20 11:00] VITALS: BP 175/120
--- NOTE | 2019-09-20 11:52 | PDOC ---
Infectious Disease Note Subjective Subjective Feels good Occ cough Denies SOA/CP/F/C/aches O2 5L ROS ROS as mentioned above Vital Sign Vital Signs Vital Signs Date Time Temp Pulse Resp B/P (MAP) Pulse Ox O2 Delivery O2 Flow Rate FiO2 09/20/19 08:36 78 189/109 09/20/19 08:00 Nasal Cannula 5.0 09/20/19 07:45 95.1 18 95.1 09/20/19 03:45 94 Physical Exam PHYSICAL EXAM GENERAL: Lying down, alert, in NAD HEENT: Oral cavity, pharynx has some dentures, improved thrush. Dentures NECK: Supple, without JVD. LUNGS: Improved aeration, nonlabored HEART: S1, S2. ABDOMEN: Obese, soft EXTREMITIES: Without clubbing, cyanosis. He had 1+ lower extremity edema. SKIN: Warm without signs of rash. He has had multiple tattoos. NEUROLOGIC: Nonfocal, answers questions appropriately. PSYCHIATRIC: Affect is appropriate Labs Lab Laboratory Tests Test 09/19/19 11:59 09/19/19 20:30 Glucose (Fingerstick) 157 mg/dL (70-99) 165 mg/dL (70-99) Micro Microbiology 09/15/19 Blood Culture - Final, Complete NO GROWTH AFTER 5 DAYS Objective Assessment COVID + 09/13 s/p Plasma 09/15 Leukocytosis - on steroids Fever - resolved Acute Hypoxic resp failure - better Mild thrush - improving Afib H/o Hep C - treated H/o TB - treated Plan Plan of Care Continue to observe off abx Steroids per pulm Nystatin SWSW May need Remdesivir if worsens D/w nursing Attending Co-Sign The patient was seen and interviewed as well as examined at the bedside. The chart was reviewed. The case was discussed. Agree with the plan of care. AILYN MILLER APRN Sep 20, 2019 11:52 BETHANIE LY MD Sep 20, 2019 12:11
--- NOTE | 2019-09-20 12:58 | PDOC ---
[employer] PROGRESS NOTE Chief Complaint Chief Complaint Covid 19 infection Paroxysmal atrial fibrillation Acute COPD exacerbation Atypical pneumonia Hyponatremia secondary to low effective circulatory volume Contraction alkalosis Transaminitis History of hepatitis C History of TB treated as reported by the patient, he carries a card from the correctional department in his wallet, no fever no weight loss no lymphadenopathy noted in [facility] for 25 some years. history of tuberculosis in the late 80s and was treated for 1 year. 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 History of Present Illness History of Present Illness 09/20/2019 Patient seen and examined on the COVID-19 isolation unit Chart reviewed Discussed with RN 09/19/2019 Patient seen and examined He accidentally urinated on the floor Appears weak and frail His temperature is 95 Discussed with RN We are going to put a bear hugger on him to warming up He is very ill Vitals/I&O Vitals/I&O: Vital Signs Date Time Temp Pulse Resp B/P (MAP) Pulse Ox O2 Delivery O2 Flow Rate FiO2 09/20/19 11:00 94.3 83 18 175/120 (138) 95 Nasal Cannula 5.0 94.3 I & O 09/19/19 09/19/19 09/20/19 15:00 23:00 07:00 Intake Total 800 ml 2120 ml Output Total 230 ml 500 ml 900 ml Balance -230 ml 300 ml 1220 ml Physical Exam Physical Exam: GENERAL: Lying down, alert, in NAD HEENT: Oral cavity, pharynx has some dentures, improved thrush. Dentures NECK: Supple, without JVD. LUNGS: Improved aeration, nonlabored HEART: S1, S2. ABDOMEN: Obese, soft EXTREMITIES: Without clubbing, cyanosis. He had 1+ lower extremity edema. SKIN: Warm without signs of rash. He has had multiple tattoos. NEUROLOGIC: Nonfocal, answers questions appropriately. PSYCHIATRIC: Affect is appropriate General: Cooperative, mild distress Heart: Other (AFIB, rate controlled) Lungs: Crackles Abdomen: Soft, No tenderness, Other (obese ) Extremities: Other (1+ bilateral LE edema ) Skin: No significant lesion Labs Labs: Laboratory Tests Test 09/19/19 20:30 Glucose (Fingerstick) 165 mg/dL (70-99) Assessment and Plan Assessmemt and Plan Problems Medical Problems: (1) Hypoxemia Status: Acute (2) Person under investigation for COVID-19 Status: Acute (3) Pneumonia Status: Acute Covid 19 infection Paroxysmal atrial fibrillation Acute COPD exacerbation Atypical pneumonia Hyponatremia secondary to low effective circulatory volume Contraction alkalosis Transaminitis History of hepatitis C History of TB treated as reported by the patient, he carries a card from the correctional department in his wallet, no fever no weight loss no lymphadenopathy noted in [facility] for 25 some years. history of tuberculosis in the late 80s and was treated for 1 year. 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 Plan Cardiac monitoring Pulmonary and cardiology are following Continue current management Supportive measures Monitor oximetry closely Isolation precaution adding steroids IV SOLUMEDROL 60 MG Q 8 HRS Continue antibiotics, azithromycin. s/p convalescent plasma. Home meds DVT prophylaxis Full code Long-term prognosis guarded Total time 32 Comment Review of Relevant I have reviewed the following items syed (where applicable) has been applied. Justicifation of Admission Dx: Justifications for Admission: Justification of Admission Dx: Yes Respiratory Failure: Severe Resp Distress Aspiration Pneumonia: Chronic Lung Disease BETTY MELENDEZ III DO Sep 20, 2019 12:58
[2019-09-20 15:00] VITALS: BP 169/103
[2019-09-20 19:00] VITALS: BP 162/105
[2019-09-20] MEDS: TAMSULOSIN 0.4 MG CAP.ER.24H. PO SCH (20:31)
[2019-09-20] MEDS: LISINOPRIL 10 MG TABLET PO SCH (20:31)
[2019-09-20 23:00] VITALS: BP 169/105
[2019-09-21 02:52] VITALS: BP 172/107
[2019-09-21 07:00] VITALS: BP 171/112
--- NOTE | 2019-09-21 09:36 | PDOC ---
PULMONARY PROGRESS NOTES Subjective on 02 4 lpm, denies sob, has occ cough, wants to go home Vitals Vital Signs Date Time Temp Pulse Resp B/P (MAP) Pulse Ox O2 Delivery O2 Flow Rate FiO2 09/21/19 07:00 96.0 94 17 171/112 (131) 93 Nasal Cannula 4.0 96.0 Comments visual exam done due to COVID pandemia no soa, appears comfortable no paradoxical abd motion alert and oriented no rash General: Alert, No acute distress Labs Laboratory Tests Test 09/19/19 11:59 09/19/19 20:30 09/20/19 20:39 09/21/19 08:22 Glucose (Fingerstick) 157 mg/dL (70-99) 165 mg/dL (70-99) 220 mg/dL (70-99) 129 mg/dL (70-99) Laboratory Tests Test 09/20/19 20:39 09/21/19 08:22 Glucose (Fingerstick) 220 mg/dL (70-99) 129 mg/dL (70-99) Medications Active Scripts Medications Dose Route/Sig Max Daily Dose Days Date Category Carvedilol 25 Mg Tablet 6.25 Mg PO BIDWMEALS 09/15/19 Reported Flomax (Tamsulosin Hcl) 0.4 Mg Cap.er.24h 1 Cap PO DAILY 09/15/19 Reported Lisinopril 10 Mg Tablet 1 Tab PO DAILY 09/15/19 Reported Impression . 1. Acute hypoxic respiratory failure secondary to COVID-[address] chest with bilateral ground glass infiltrates and some pleural thickening. No evidence of any pulmonary embolism. Findings are consistent with COVID-19 pneumonia. 3. COVID-19 positive. 4. Underlying chronic obstructive pulmonary disease. 5. History of tuberculosis, treated in the 80s for 1 year. 6. 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 Plan . 1. titrate fio2 to keep saturation 92% and above. 2. steroids added 09/16, solumedrol 40 bid 3. Continue antibiotics, per id. 4. s/p convalescent plasma. 5. Lovenox for deep vein thrombosis prophylaxis. 6. Infectious Disease rec 7. We will follow along with you. Discussed with RN, pt clinically improving MAYANK NEELY MD Sep 21, 2019 09:36
[2019-09-21] MEDS: METOPROLOL TART IMMED RELEASE 50 MG TABLET. PO SCH ×2 (10:05→20:44)
[2019-09-21] MEDS: APIXABAN 5 MG TABLET. PO SCH ×2 (10:05→20:43)
[2019-09-21] MEDS: NYSTATIN 100,000 UNITS/ML 5 ML ORAL.SUSP. SWSW SCH ×4 (10:05→20:43)
[2019-09-21] MEDS: methylPREDNISolone SOD SUCC PF 40 MG/ML VIAL. IV SCH ×2 (10:05→20:44)
[2019-09-21] MEDS: LACTOBACILLUS RHAMNOSUS GG 1 CAPSULE. PO SCH ×2 (10:05→20:44)
[2019-09-21 11:00] VITALS: BP 131/85
--- NOTE | 2019-09-21 12:02 | PDOC ---
[employer] PROGRESS NOTE Chief Complaint Chief Complaint Covid 19 infection Paroxysmal atrial fibrillation Acute COPD exacerbation Atypical pneumonia Hyponatremia secondary to low effective circulatory volume Contraction alkalosis Transaminitis History of hepatitis C History of TB treated as reported by the patient, he carries a card from the correctional department in his wallet, no fever no weight loss no lymphadenopathy noted in [facility] for 25 some years. history of tuberculosis in the late 80s and was treated for 1 year. 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 History of Present Illness History of Present Illness 09/21/2019 Patient seen and examined in the [place] [id number] unit Discussed with RN Chart reviewed 09/20/2019 Patient seen and examined on the [place] [id number] isolation unit Chart reviewed Discussed with RN 09/19/2019 Patient seen and examined He accidentally urinated on the floor Appears weak and frail His temperature is 95 Discussed with RN We are going to put a bear hugger on him to warming up He is very ill Vitals/I&O Vitals/I&O: Vital Signs Date Time Temp Pulse Resp B/P (MAP) Pulse Ox O2 Delivery O2 Flow Rate FiO2 09/21/19 11:00 95.8 88 131/85 (100) 94 Nasal Cannula 3.0 95.8 09/21/19 07:00 17 I & O 0 09/20/19 09/20/19 09/21/19 15:00 23:00 07:00 Intake Total 1100 ml 1000 ml 2000 ml Output Total 1175 ml 1900 ml Balance 1100 ml -175 ml 100 ml Physical Exam Physical Exam: GENERAL: Lying down, alert, in NAD HEENT: Oral cavity, pharynx has some dentures, improved thrush. Dentures NECK: Supple, without JVD. LUNGS: Improved aeration, nonlabored HEART: S1, S2. ABDOMEN: Obese, soft EXTREMITIES: Without clubbing, cyanosis. He had 1+ lower extremity edema. SKIN: Warm without signs of rash. He has had multiple tattoos. NEUROLOGIC: Nonfocal, answers questions appropriately. PSYCHIATRIC: Affect is appropriate General: Cooperative, mild distress Heart: Other (AFIB, rate controlled) Lungs: Crackles Abdomen: Soft, No tenderness, Other (obese ) Extremities: Other (1+ bilateral LE edema ) Skin: No significant lesion Labs Labs: Laboratory Tests Test 09/20/19 20:39 09/21/19 08:22 Glucose (Fingerstick) 220 mg/dL (70-99) 129 mg/dL (70-99) Assessment and Plan Assessmemt and Plan Problems Medical Problems: (1) Hypoxemia Status: Acute (2) Person under investigation for COVID-19 Status: Acute (3) Pneumonia Status: Acute Covid 19 infection Paroxysmal atrial fibrillation Acute COPD exacerbation Atypical pneumonia Hyponatremia secondary to low effective circulatory volume Contraction alkalosis Transaminitis History of hepatitis C History of TB treated as reported by the patient, he carries a card from the correctional department in his wallet, no fever no weight loss no lymphadenopathy noted in [facility] for 25 some years. history of tuberculosis in the late 80s and was treated for 1 year. 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 Plan Cardiac monitoring Pulmonary and cardiology are following Continue current management Supportive measures Monitor oximetry closely Isolation precaution adding steroids IV SOLUMEDROL 60 MG Q 8 HRS Continue antibiotics, azithromycin. s/p convalescent plasma. Home meds DVT prophylaxis Full code Long-term prognosis guarded Total time 33 Comment Review of Relevant I have reviewed the following items syed (where applicable) has been applied. Medications: Current Medications Medications (Trade) Dose Ordered Sig/Christy Route PRN Reason Start Time Stop Time Status Last Admin Dose Admin Methylprednisolone Sodium Succinate (SOLU-Medrol 40MG VIAL) 40 mg Q12HR IV 09/20/19 21:00 09/21/19 10:05 Justicifation of Admission Dx: Justifications for Admission: Justification of Admission Dx: Yes Respiratory Failure: Severe Resp Distress Aspiration Pneumonia: Chronic Lung Disease BETTY MELENDEZ III DO Sep 21, 2019 12:02
--- NOTE | 2019-09-21 13:10 | PDOC ---
Infectious Disease Note Subjective Subjective Feeling better, O2 down to 3L Occ cough Denies SOA/CP/F/C/aches ROS ROS as mentioned above Vital Sign Vital Signs Vital Signs Date Time Temp Pulse Resp B/P (MAP) Pulse Ox O2 Delivery O2 Flow Rate FiO2 09/21/19 11:00 95.8 88 131/85 (100) 94 Nasal Cannula 3.0 95.8 09/21/19 07:00 17 Physical Exam PHYSICAL EXAM GENERAL: Sitting in the chair, alert, smiling HEENT: Oral cavity, pharynx has some dentures, improved thrush. Dentures NECK: Supple, without JVD. LUNGS: Clear, nonlabored HEART: S1, S2. ABDOMEN: Obese, soft EXTREMITIES: Without clubbing, cyanosis. He had 1+ lower extremity edema. SKIN: Warm without signs of rash. He has had multiple tattoos. NEUROLOGIC: Nonfocal, answers questions appropriately. PSYCHIATRIC: Affect is appropriate Labs Lab Laboratory Tests Test 09/20/19 20:39 09/21/19 08:22 Glucose (Fingerstick) 220 mg/dL (70-99) 129 mg/dL (70-99) Micro Microbiology 09/15/19 Blood Culture - Final, Complete NO GROWTH AFTER 5 DAYS Objective Assessment COVID + 09/13 s/p Plasma 09/15 Leukocytosis - on steroids Fever - resolved Acute Hypoxic resp failure - better Mild thrush - improving Afib H/o Hep C - treated H/o TB - treated Plan Plan of Care Continue to observe off abx Steroids per pulm Nystatin SWSW May need Remdesivir if worsens D/w nursing Attending Co-Sign The patient was seen and interviewed as well as examined at the bedside. The chart was reviewed. The case was discussed. Agree with the plan of care. AILYN MILLER APRN Sep 21, 2019 13:10 BETHANIE LY MD Sep 21, 2019 13:19
[2019-09-21 14:58] VITALS: BP 172/103
[2019-09-21 19:00] VITALS: BP 162/96
[2019-09-21] MEDS: LISINOPRIL 10 MG TABLET PO SCH (20:44)
[2019-09-21] MEDS: TAMSULOSIN 0.4 MG CAP.ER.24H. PO SCH (20:44)
[2019-09-21 23:00] VITALS: BP 147/94
[2019-09-22 03:00] VITALS: BP 160/99
[2019-09-22 07:00] VITALS: BP 163/106
[2019-09-22] MEDS: LACTOBACILLUS RHAMNOSUS GG 1 CAPSULE. PO SCH (08:17)
[2019-09-22] MEDS: methylPREDNISolone SOD SUCC PF 40 MG/ML VIAL. IV SCH (08:17)
[2019-09-22] MEDS: APIXABAN 5 MG TABLET. PO SCH (08:17)
[2019-09-22] MEDS: METOPROLOL TART IMMED RELEASE 50 MG TABLET. PO SCH (08:17)
[2019-09-22] MEDS: NYSTATIN 100,000 UNITS/ML 5 ML ORAL.SUSP. SWSW SCH ×2 (08:17→12:15)
[2019-09-22] MEDS ORDERED: METO50TA6 PO (10:33)
[2019-09-22] MEDS ORDERED: APIX5TAB PO (10:34)
[2019-09-22] MEDS ORDERED: LISI10TA2 PO (10:35)
--- NOTE | 2019-09-22 10:44 | PDOC ---
Infectious Disease Note Subjective Subjective Off O2 feeling great wants to go home ROS ROS Nausea vomiting diarrhea shortness of breath or fever Vital Sign Vital Signs Vital Signs Date Time Temp Pulse Resp B/P (MAP) Pulse Ox O2 Delivery O2 Flow Rate FiO2 09/22/19 08:17 97 163/106 09/22/19 08:00 Room Air 09/22/19 07:00 97.8 19 94 97.8 09/21/19 19:30 4.0 Physical Exam PHYSICAL EXAM GENERAL: Sitting in the chair, alert, smiling HEENT: Oral cavity, pharynx has some dentures, improved thrush. Dentures NECK: Supple, without JVD. LUNGS: Clear, nonlabored HEART: S1, S2. ABDOMEN: Obese, soft EXTREMITIES: Without clubbing, cyanosis. He had 1+ lower extremity edema. SKIN: Warm without signs of rash. He has had multiple tattoos. NEUROLOGIC: Nonfocal, answers questions appropriately. PSYCHIATRIC: Affect is appropriate Labs Lab Laboratory Tests Test 09/21/19 20:51 09/22/19 07:22 Glucose (Fingerstick) 228 mg/dL (70-99) 115 mg/dL (70-99) Micro Microbiology 09/15/19 Blood Culture - Final, Complete NO GROWTH AFTER 5 DAYS Objective Assessment COVID + 09/13 s/p Plasma 09/15 Leukocytosis - on steroids Fever - resolved Acute Hypoxic resp failure - better Mild thrush - improving Afib H/o Hep C - treated H/o TB - treated Plan Plan of Care Continue to observe off abx Steroids per pulm Nystatin SWSW Okay to [place] home D/w nursing BETHANIE LY MD Sep 22, 2019 10:44
[2019-09-22 10:55] VITALS: BP 145/85
--- NOTE | 2019-09-22 11:00 | NUR ---
Explained to patient that IMTIAZ Falcon with cardiology wants patient to have labs drawn before discharge to check electrolytes. Discussed importance of correcting electrolytes, reenforcement needed but patient eventually verbalized understanding and agreed to stay for the lab draw and possibly getting electrolytes replaced. Addendum: 09/22/19 at 1220 by ANTONETTE COLLADO RN This RN spoke to Arnoldo, employee at [employer] where patient lives. Arnoldo confirmed that living arrangements have been made for patient to discharge today and notified this RN that he was waiting for patient in the ER parking lot. Pt stated he does not want to wait for labs, stating that "he feels fine, he is ready to go." IMTIAZ Falcon paged.
[2019-09-22] MEDS ORDERED: METOPROLOL TART IMMED RELEASE 25 MG TABLET. PO ONE (11:15)
--- NOTE | 2019-09-22 11:15 | PDOC ---
CARDIO Progress Notes Date and Time Date of Service 09/22/19 Time of Evaluation 1100 Subjective Subjective: No Chest Pain, No shortness of breath, No Palpitations Vitals Vitals Vital Signs Date Time Temp Pulse Resp B/P (MAP) Pulse Ox O2 Delivery O2 Flow Rate FiO2 09/22/19 10:55 97.8 98 18 145/85 (105) 95 Room Air 97.8 09/21/19 19:30 4.0 Weight Weight [ ] Input and Output Intake and Output Intake and Output 09/22/19 07:00 Intake Total 3100 ml Output Total 650 ml Balance 2450 ml Intake Oral 3100 ml Output Urine Total 650 ml # Voids 5 # Bowel Movements 2 Laboratory Labs Laboratory Tests Test 09/21/19 20:51 09/22/19 07:22 Glucose (Fingerstick) 228 mg/dL (70-99) 115 mg/dL (70-99) Microbiology Micro Microbiology 09/15/19 Blood Culture - Final, Complete NO GROWTH AFTER 5 DAYS Physical Exam HEENT: Neck Supple W Full Motion LUNGS: Other (diminsihed bases) Heart: irregularly irregular (AFIB- rate near 95) Abdomen: Other (obese) Extremities: No Calf Tenderness Neurology: alert, oriented, follow commands Assessment Assessment 1. Acute respiratory failure secondary to COVID PNA: improved 2. AFIB in the setting of covid PNA: reportedly diagnosed in [place] [facility], no prior cardiac workup. rate mostly controlled, having some intermittent RVR 3. Hypertension; controlled 4. Metabolic syndrome: A1C 6.2 5. H/o hepatitis C 6. Arrhythmia; 13-beat NSVT noted this am on tele Recommendations Repeat BMP, Mg. Replace electrolytes as warranted Increase metoprolol for better rate control TTE as an outpt once fully recovered from covid Eliquis for stroke prevention; 1 month of samples and 30-day free card provided. Applied for Medicaid. Will followup [facility] with [facility]. Follow up in our office in 4-[address] Martinez. Contact information provided. Justicifation of Admission Dx: Justifications for Admission: Justification of Admission Dx: Yes Respiratory Failure: Severe Resp Distress Aspiration Pneumonia: Chronic Lung Disease BECK HAZEL APRN Sep 22, 2019 11:15
[2019-09-22 11:21] VITALS: BP 145/85
--- NOTE | 2019-09-22 12:15 | PDOC ---
PULMONARY PROGRESS NOTES Subjective on RA Vitals Vital Signs Date Time Temp Pulse Resp B/P (MAP) Pulse Ox O2 Delivery O2 Flow Rate FiO2 09/22/19 11:21 98 145/85 09/22/19 10:55 97.8 18 95 Room Air 97.8 09/21/19 19:30 4.0 Comments visual exam done due to COVID pandemia no soa, appears comfortable no paradoxical abd motion alert and oriented no rash General: Alert, No acute distress Labs Laboratory Tests Test 09/20/19 20:39 09/21/19 08:22 09/21/19 20:51 09/22/19 07:22 Glucose (Fingerstick) 220 mg/dL (70-99) 129 mg/dL (70-99) 228 mg/dL (70-99) 115 mg/dL (70-99) Test 09/22/19 11:07 Glucose (Fingerstick) 112 mg/dL (70-99) Laboratory Tests Test 09/21/19 20:51 09/22/19 07:22 09/22/19 11:07 Glucose (Fingerstick) 228 mg/dL (70-99) 115 mg/dL (70-99) 112 mg/dL (70-99) Medications Active Scripts Medications Dose Route/Sig Max Daily Dose Days Date Category Carvedilol 25 Mg Tablet 6.25 Mg PO BIDWMEALS 09/15/19 Reported Flomax (Tamsulosin Hcl) 0.4 Mg Cap.er.24h 1 Cap PO DAILY 09/15/19 Reported Lisinopril 10 Mg Tablet 1 Tab PO DAILY 09/15/19 Reported Impression . 1. Acute hypoxic respiratory failure secondary to COVID-[address] chest with bilateral ground glass infiltrates and some pleural thickening. No evidence of any pulmonary embolism. Findings are consistent with COVID-19 pneumonia. 3. COVID-19 positive. 4. Underlying chronic obstructive pulmonary disease. 5. History of tuberculosis, treated in the 80s for 1 year. 6. 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 Plan . 1. ON RA 2. PO Steroids taper 3. Continue antibiotics, per id. 4. s/p convalescent plasma. 5. Lovenox for deep vein thrombosis prophylaxis. 6. Infectious Disease rec 7. ok with dc home CARLINE ELIZONDO MD Sep 22, 2019 12:14
--- NOTE | 2019-09-22 12:45 | NUR ---
Discharge Note: [facility]ON [facility] Discharge instructions and discharge home medications reviewed with Patient and a copy given. All questions have been answered and understanding verbalized. The following instructions and handouts were given: F/U with Dr. Martinez within 4-6 weeks. Samples of Eliquis and Sample card given to patient. Discontinued lines and drains: Peripheral IV intact. Patient discharged to Home or Self Care with facility personnel via Wheelchair.
--- NOTE | 2019-09-22 13:13 | DS ---
DATE OF DISCHARGE: 09/22/2019 ADMISSION DIAGNOSIS: COVID-19 pneumonia. DISCHARGE DIAGNOSIS: Resolving respiratory failure secondary to COVID-19. HOSPITAL COURSE: The patient is a pleasant elderly male who presented with shortness of breath, was noted to have abnormal chest x-ray and admitted with pneumonia. He ruled in for COVID-19. He also had transaminitis, hyponatremia, and a history of TB and hepatitis C. He was admitted to the COVID-19 unit. We gave him antibiotics. We consulted Pulmonary, Infectious Disease, and Cardiology. Over the past week, he has returned to his baseline. This morning, I saw him and examined. He was up in the chair, pleasant. Heart tones are normal. Lungs are clear. He wants to go home. We plan to discharge. DISPOSITION: Home. ACTIVITY: As tolerated. DIET: Low sodium. MEDICATIONS: Please see the MRAD. TOTAL TIME: 33 minutes. BETTY MELENDEZ DO DR: WANDER/kely JOB#: [id number] / [id number]
--- NOTE | 2019-09-22 16:09 | NUR ---
SW following. Reviewed chart and spoke with RN. RN stated no SW needs identified. Pt is able [facility] and self quarantine per positive COVID results per RN. Pt to discharge on room air and oral medications. ANGIE spoke with [facility] to confirm the date Medicaid application was submitted per request of pt. SW notified pt of the application submission date and also provided contact number for Medicare should he want to call and see if he has enough work history credits to qualify. No additional SW needs at this time.
[2019-09-22] MEDS ORDERED: METOPROLOL TART IMMED RELEASE 25 MG TABLET. PO SCH (21:00)
== END 2019-09-22 12:45 | disposition home or self-care (01) | DRG 177 ==
LOC: ER 21:09 → 1 WEST ICU 09-15 02:42 → 6 SOUTH 09-18 09:59
PROVIDERS: ADMIT Internal Medicine; ATTEND Internal Medicine
PROC: 30233K1 Transfusion of Nonautologous Frozen Plasma into Peripheral Vein, Percutaneous Approach (ICD-10-PCS; principal; 2019-09-16)
DX: U07.1 COVID-19 (principal); J12.89 Other viral pneumonia; J96.01 Acute respiratory failure with hypoxia; E87.1 Hypo-osmolality and hyponatremia; E87.3 Alkalosis; I47.2 Ventricular tachycardia; J44.0 Chronic obstructive pulmonary disease with (acute) lower respiratory infection; J44.1 Chronic obstructive pulmonary disease with (acute) exacerbation; B37.9 Candidiasis, unspecified; E87.6 Hypokalemia; E88.81 Metabolic syndrome and other insulin resistance; F17.200 Nicotine dependence, unspecified, uncomplicated; I10 Essential (primary) hypertension; I48.0 Paroxysmal atrial fibrillation; K44.9 Diaphragmatic hernia without obstruction or gangrene; Z78.9 Other specified health status; Z79.01 Long term (current) use of anticoagulants; Z86.11 Personal history of tuberculosis; E66.9 Obesity, unspecified; F11.90 Opioid use, unspecified, uncomplicated
CPT/HCPCS: 36415; 36600; 71045; 71275; 80048; 80053; 80061; 80076; 81001; 82436; 82607; 82805; 82962; 82977; 83036; 83605; 83615; 83735; 83880; 84133; 84300; 84439; 84443; 84484; 85007; 85025; 85610; 86140; 86850; 86900; 86901; 86927; 87040; 87804; 93005; 94760; 96374; 99285; J0696; J1650; J2920; Q9967; G0378; P9017; U0003-CS

== ENCOUNTER → 2019-12-26 | Outpatient (CLI) | payer OTHER ==
[~2019-12-26] MED LIST: APIX5TAB PO; CARV25TA2 PO; LISI10TA2 PO; METO50TA6 PO; TAMS0.4C97 PO
--- NOTE | 2019-12-26 10:51 | CARD ---
MR#: [id number] Date of Study: 12/26/2019 Ordering Physician: TRAY WESTBROOK, Referring Physician: TRAY WESTBROOK, Tech: Jossy Lora APPROVED REPORT EXAM: Two-dimensional and M-mode echocardiogram with Doppler and color Doppler. Other Information Quality : AverageHR: 56bpm INDICATION Dyspnea RISK FACTORS Hypertension Smoking 2D DIMENSIONS Left Atrium(2D)4.3 (1.6-4.0cm)IVSd1.1 (0.7-1.1cm) Aortic Root(2D)3.8 (2.0-3.7cm)LVDd5.5 (3.9-5.9cm) LVOT Diameter2.2 (1.8-2.4cm)PWd1.1 (0.7-1.1cm) LVDs3.2 (2.5-4.0cm)FS (%) 42.0 % SV106.5 ml Aortic Valve AoV Peak Rashad.149.1cm/sAoV VTI31.8cm AO Peak GR.8.9mmHgLVOT Peak Rashad.103.9cm/s LVOT VTI 24.56cmAO Mean GR.5mmHg NANCY (VMAX)1.45nz8XJR (VTI)2.94cm2 Mitral Valve MV E Rdezwyff91.9cm/sMV DECEL [id number] MV A Babigntq12.7cm/sMV E Mean Gr.1mmHg MV TFT08mhG/A Ratio1.1 MVA (PHT)2.73cm2 TDI E/Lateral E'10.9E/Medial E'10.6 Pulmonary Valve PV Peak Fxcueypv320.0cm/sPV Peak Grad.5mmHg Tricuspid Valve TR P. Igeycjte424an/sRAP [id number] TR Peak Gr.86dkSnMQFT49lrVy Pulmonary Vein S1 Xdymcttu37.1cm/sD2 Dysnozwx18.8cm/s PVa [id number] LEFT VENTRICLE The left ventricle is normal size. There is mild concentric left ventricular hypertrophy. The left ve ntricular systolic function is normal and the ejection fraction is within normal range. The Ejection Fraction is 55-60%. There is normal LV segmental wall motion. Transmitral Doppler flow pattern is Gra de II-pseudonormal filling dynamics. RIGHT VENTRICLE The right ventricle is borderline dilated. There is normal right ventricular wall thickness. The righ t ventricular systolic function is normal. ATRIA The left atrium is borderline dilated. The right atrium is mildly dilated. The interatrial septum is intact with no evidence for an atrial septal defect or patent foramen ovale as noted on 2-D or Dopple r imaging. AORTIC VALVE The aortic valve is thickened but opens well. Doppler and Color Flow revealed no significant aortic r egurgitation. Calculated aortic valve area is 2.62 cm2 with maximum pressure gradient of 10 mmHg and mean pressure gradient of 5 mmHg. There is no significant aortic valvular stenosis. MITRAL VALVE The mitral valve is normal in structure and function. There is no evidence of mitral valve prolapse. There is no mitral valve stenosis. Doppler and Color-flow revealed trace mitral regurgitation. TRICUSPID VALVE The tricuspid valve is normal in structure and function. Doppler and Color Flow revealed trace tricus pid regurgitation with an estimated PAP of 38 mmHg. There is no tricuspid valve stenosis. PULMONIC VALVE The pulmonic valve is not well visualized. Doppler and Color Flow revealed trace pulmonic valvular re gurgitation. GREAT VESSELS The aortic root is normal in size. The ascending aorta is normal in size. The IVC is normal in size a nd collapses >50% with inspiration. PERICARDIAL EFFUSION There is no evidence of significant pericardial effusion. Critical Notification Critical Value: No <Conclusion> The left ventricle is normal size. The left ventricular systolic function is normal and the ejection fraction is within normal range. The Ejection Fraction is 55-60%. There is mild concentric left ventricular hypertrophy. Transmitral Doppler flow pattern is Grade II-pseudonormal filling dynamics. Doppler and Color Flow revealed no significant aortic regurgitation. There is no significant aortic valvular stenosis. Doppler and Color-flow revealed trace mitral regurgitation. Doppler and Color Flow revealed trace tricuspid regurgitation with an estimated PAP of 38 mmHg. Signed by : Tray Westbrook MD Electronically Approved : 12/26/2019 10:51:08
== END | disposition home or self-care (01) ==
LOC: ECHO 09:00
PROVIDERS: ATTEND Internal Medicine Cardiovascular Disease
DX: I51.7 Cardiomegaly (principal); R06.02 Shortness of breath
CPT/HCPCS: 93306